=== PATIENT | male | born 1930 | race Caucasian/White ===

== ENCOUNTER → 2016-08-02 | Outpatient (CLI) | payer OTHER ==
[~2016-08-02] MED LIST: ALLO100T PO; ASPI81TA21 PO; CHOLCAP5 PO; CYAN500T13 PO; DOCU100T7 PO; GLIP5TAB11 PO; HYDR-4079 PO; KLN5X PO; METO25TA56 PO; MIRT15TA2 PO; PANT40TA PO; PSYL55.43 PO; SIMV10TA2 PO; TAMS0.4C38 PO
[2016-08-02 15:34] LABS: HEMATOCRIT 46.2 % (42-52); MEAN CELL VOLUME 92.8 fL (80-100); MEAN CORPUSCULAR HEMOGLOBIN 30.9 pg (25-34); MEAN CORPUSCULAR HGB CONC 33.3 g/dl (32-36); MEAN PLATELET VOLUME 8.9 fL (7.4-10.4); PLATELET COUNT 245 K/uL (130-400); RED BLOOD COUNT 4.98 M/uL (4.7-6.1); WHITE BLOOD COUNT 9.55 K/uL (4.8-10.8)
[2016-08-02 15:38] LABS: URINE APPEARANCE CLEAR (CLEAR); URINE BILIRUBIN NEG (NEG); URINE COLOR YELLOW; URINE EPITHELIAL CELL AUTO 0-5 /lpf (0-5); URINE NITRITE NEG (NEG); URINE SPECIFIC GRAVITY 1.023 (1.000-1.030); UROBILINOGEN NEG (NEG)
[2016-08-02 15:47] LABS: MANUAL MICROSCOPIC REQUIRED? NO; REVIEW REQ? NO
[2016-08-02 16:10] LABS: URINE PROTIEN/CREAT RATIO 0.2 (0-0.2); URINE TOTAL PROTEIN 28.3 mg/dl (0-11.9)
[2016-08-02 16:11] LABS: BLOOD UREA NITROGEN 19 mg/dl (7-18); BUN/CREATININE RATIO 10.1 (10-20); CALCIUM 9.3 mg/dl (8.5-10.1); CARBON DIOXIDE 30 mmol/L (21-32); CHLORIDE 100 mmol/L (98-107); GLUCOSE 268 mg/dl (70-99); PHOSPHORUS 2.5 mg/dl (2.5-4.9); POTASSIUM 3.6 mmol/L (3.5-5.1); SODIUM 139 mmol/L (136-145)
== END | disposition home or self-care (01) ==
LOC: C.LAB 14:28
PROVIDERS: ATTEND Internal Medicine Nephrology
DX: I12.9 Hypertensive chronic kidney disease with stage 1 through stage 4 chronic kidney disease, or unspecified chronic kidney disease (principal); N18.3 Chronic kidney disease, stage 3 (moderate); E55.9 Vitamin D deficiency, unspecified; N20.0 Calculus of kidney; D64.9 Anemia, unspecified

== ENCOUNTER 2017-01-24 16:09 | Emergency (ER) | payer OTHER ==
[~2017-01-24] VITALS: Ht 185.4 cm; Wt 87.0 kg
[~2017-01-24 16:09] MED LIST changes: -CHOLCAP5 PO; -CYAN500T13 PO; -METO25TA56 PO; -PANT40TA PO
[2017-01-24 16:16] VITALS: TEMP 36.6; Ht 185.4 cm; Wt 87.0 kg
[2017-01-24] MEDS ORDERED: PSYL48.59 PO (16:40)
[2017-01-24] MEDS ORDERED: VITATAB19 PO (16:42)
[2017-01-24] MEDS ORDERED: XYLOCAINE 1%/SOD BICARB 20 ML VIAL INFIL ONE (16:45)
--- NOTE | 2017-01-24 17:25 | EMERGENCY ROOM VISIT NOTE ---
ED Visit Note First contact with patient: 16:31 Staff note: I have reviewed the Patients chart and have discussed this case with my PA. I generally agree with the ED note and findings.
[2017-01-24] MEDS ORDERED: CEPH500C2 PO (18:07)
[2017-01-24] MEDS ORDERED: CEPHALEXIN 500MG HOME PACK 1 EA BTL PO ONE (18:15)
[2017-01-24 18:20] VITALS: BP 164/105; PULSE 83; O2SAT 98
[2017-01-24] MEDS ORDERED: PANT40TA PO (19:59)
[2017-01-24] MEDS ORDERED: CHOLCAP5 PO (21:14)
[2017-01-24] MEDS ORDERED: CYAN500T13 PO (21:14)
[2017-01-24] MEDS ORDERED: METO25TA56 PO (21:14)
--- NOTE | 2017-01-24 21:40 | EMERGENCY ROOM VISIT NOTE ---
ED Visit Note First contact with patient: 16:31 Chief Complaint: Laceration. History of Present Illness: Mr. Wagner is an 86-year-old white male who ambulates into the ED with the use of a cane accompanied by his and granddaughter complaining of a left heel laceration. Patient reports last evening he sustained a laceration to the plantar surface and medial surface of the left heel when he accidentally stepped on a special attachment that goes to his cane. Historically he reports he has a history of neuropathy and cannot feel his feet. He reports he did walk around at home and then finally noticed blood on the floor before he realized he had a laceration. Laceration occurred approximately 15 hours ago. He reports the wound was cleansed with peroxide shortly after the injury. When questioned he reported he did not think the wound was that bad and only came to the hospital after the granddaughter saw the wound and suggested evaluation; he also expressed concerns for infection because he is a diabetic and this was an open wound. Patient has no associated symptoms with his laceration including pain at the area of the laceration, additional numbness or weakness of the foot, difficulty ambulating. Review of Systems: As noted above in history of present illness. Past Medical History: Diabetes, dyslipidemia, coronary artery disease, benign prostatic hypertrophy, hypertension, prostatitis, urinary retention, urinary tract infections. Current Medications: Medications Dose Route/Sig Max Daily Dose Days Date Category Dose Instructions Keflex (Cephalexin Monohydrate) 500 Mg Cap 500 Mg PO TID 6 01/24/17 Rx Vitamin A (Vitamin A-Beta Carotene) 1 Tab Tab 1 Tabs PO DAILY 01/24/17 Reported Metamucil (Psyllium) 48.57 % Pow 5 Ml PO DAILY 01/24/17 Reported Glucotrol (Glipizide) 5 Mg Tab 5 Mg PO BID 05/19/15 Reported Remeron Soltab (Mirtazapine) 15 Mg Soltab 15 Mg PO HS 05/19/15 Reported [place] 10MG/325MG (Acetaminophen/Hydrocodone Bitart) Tab 0.5 Tab PO TID 05/19/15 Reported PRN PAIN Zocor (Simvastatin) 10 Mg Tab 10 Mg PO HS 05/19/15 Reported Flomax (Tamsulosin Hcl) 0.4 Mg Cap 0.4 Mg PO QAM 09/09/14 Reported Clonazepam 0.5 Mg Tab 0.5 Mg PO TID 09/09/14 Reported Vitamin D3 (Cholecalciferol) 5,000 Unit Cap 5,000 Inter.unit PO QPM 08/23/14 Reported Vitamin B12 500MCG (Cyanocobalamin) 500 Mcg Tab 500 Mcg PO QPM 08/23/14 Reported Lopressor (Metoprolol Tartrate) 25 Mg Tab 12.5 Mg PO QAM 08/23/14 Reported Protonix (Pantoprazole Sodium) 40 Mg Tab 40 Mg PO QAM 03/16/12 Reported Ecotrin Or Generic (Aspirin) 81 Mg Tab 81 Mg PO QAM 05/27/11 Reported Allergies to Medications: Succinylcholine, albuterol, ramipril, sertraline, finasteride, labetalol, shellfish. Social History: Patient is currently retired; he feels safe in his home environment; he denies tobacco use. Tetanus Immunization Status: Patient reports up-to-date. Physical Examination: Vital Signs: Date Time Temp Pulse Resp B/P (MAP) Pulse Ox O2 Delivery O2 Flow Rate FiO2 01/24/17 18:20 83 18 164/105 98 Room Air 01/24/17 16:16 36.6 104 17 160/86 95 Room Air GENERAL: 86-year-old male in no acute distress, nontoxic-appearing, afebrile and hemodynamically stable. NEUROLOGICAL: Awake, alert and oriented to person, place and time. Answering questions appropriately and following commands. SKIN: Warm, dry and pink. Left Heel: Laceration #1:5.5 cm full-thickness laceration starting just inferior to the calcaneus and extending into the plantar surface. Laceration #2:2.0 cm full-thickness laceration over the plantar surface of the heel. Left Foot: No gross bony deformity. No tenderness through the ankle, foot and heel. Soft tissue injury as noted above. Distal pulses are intact. Capillary refill is brisk. He was able to plantarflex and dorsiflex his ankle against resistance and flex and extend all toes at the MTP, PIP and DIP joints. ED Course: Patient is assessed as noted above. Wound Repair: Complexity: Basic Verbal consent was obtained after the risks and benefits were explained. The skin was prepped with betadine and a sterile field set. Wound edges of the wounds were anesthetized with a total of 5.8 ml buffered 1% lidocaine. The wound was explored for foreign bodies and none found. Copious irrigation was performed using sterile saline. With direct pressure the bleeding subsided. Debridement was not performed. The wound edges were approximated using 5-0 Ethilon with a total of 16 simple interrupted sutures. Hemostasis and excellent approximation was achieved. Antibacterial ointment and a sterile dressing applied. No complications and the patient tolerated the procedure well. Patient and family were educated about tonight's findings and instructed on his treatment plan; they verbalizes understanding and agreement with this plan. Clinical Impression: Laceration of the left heel. Disposition: Patient discharged home in stable condition; prior to departure he was reassessed and subjectively reported he was feeling better. Plan: Comfort measures, wound care, and signs of infection were discussed with the patient and his family. Patient was prescribed Keflex 500 mg 3 times a day for 7 days. Because of patient's increased risk of infection he was encouraged to follow-up with family physician for recheck in 3-4 days. Additionally he was encouraged to follow-up with PCP or return to the ED for any signs of infection and/or suture removal in 10-12 days.
== END 2017-01-24 18:39 | disposition home or self-care (01) ==
LOC: C.EDB 16:12 → C.EDD 18:39
DX: S91.312A Laceration without foreign body, left foot, initial encounter (principal); W45.8XXA Other foreign body or object entering through skin, initial encounter; E11.9 Type 2 diabetes mellitus without complications; E78.5 Hyperlipidemia, unspecified; I25.10 Atherosclerotic heart disease of native coronary artery without angina pectoris; N40.0 Benign prostatic hyperplasia without lower urinary tract symptoms; I10 Essential (primary) hypertension

== ENCOUNTER 2017-03-05 07:58 | Emergency (ER) | payer OTHER ==
[~2017-03-05] VITALS: Ht 185.4 cm; Wt 87.6 kg
[~2017-03-05 07:58] MED LIST changes: -ALLO100T PO; +CHOLCAP5 PO; +CYAN500T13 PO; -DOCU100T7 PO; +METO25TA56 PO; +PANT40TA PO; +PSYL48.59 PO; -PSYL55.43 PO; +VITATAB19 PO
[2017-03-05 08:08] VITALS: Ht 185.4 cm; Wt 87.6 kg
[2017-03-05] MEDS ORDERED: ALLO100T PO (08:19)
--- NOTE | 2017-03-05 08:36 | EMERGENCY ROOM VISIT NOTE ---
History Report prepared by Radha: David Ya Under the Supervision of: Dr. Cayetano Grewal D.O. First contact with patient: 08:15 Chief Complaint: SHORTNESS OF BREATH Stated Complaint: SHORTNESS OF BREATH Nursing Triage Summary: pt presents to ed via bls from home with c/o sob and weakness. pt states just finishing z-pack and prednisone from a bronchitis dx. pt states continuing to cough. clear productive cough. pt states sob with exertion. pt denies any cp. History of Present Illness The patient is an 86 year old male who presents to the Emergency Room with complaints of worsening shortness of breath that he has been experiencing for the past 8 days. The patient states that he was diagnosed with Bronchitis 8 days ago and was put on Azithromycin and Prednisone. He finished the Azithromycin 4 days ago. At the time of this diagnosis he was experiencing shortness of breath, achiness, and productive cough. He is not coughing up the green phlegm any more, but his shortness of breath has persisted. He had a chest x-ray performed which was negative for pneumonia. He notes that his shortness of breath has improved since receiving a breathing treatment en route to the hospital. He had a myocardial infarction in 2001. Source of History: patient Onset: 8 days [employer] Position: other (Respiratory) Quality: other (SOB) Timing: worsening Modifying Factors (Relieving): other (Breathing treatment) Review of Systems See HPI for pertinent positives & negatives. A total of 10 systems reviewed and were otherwise negative. Past Medical & Surgical Medical Problems: (1) Coronary Atherosclerosis Of [place] Coronary Vessel (2) Diab W Oth Spec Manifest, Type Ii Or Unspec Type, Not Uncntr (3) Hyperlipidemia Nec/Nos (4) Hyperplasia Of Prostate (5) Hypertension Nos (6) Prostatitis Nos (7) Retention Of Urine Nos (8) Stricture Of Ureter (9) Urin Tract Infection Nos Family History FH: HTN (hypertension) FH: cancer FH: diabetes mellitus FH: heart disease FH: kidney disease Kidney stones Social History Smoking Status: Former Smoker Alcohol Use: none Marital Status: Housing Status: lives with significant other Occupation Status: retired Current/Historical Medications Scheduled Allopurinol (Zyloprim), 1 TAB PO DAILY Aspirin Enteric Coated (Ecotrin Or Generic), 81 MG PO QAM Cholecalciferol (Vitamin D3), 5,000 INTER.UNIT PO QPM Clonazepam (Clonazepam), 0.5 MG PO TID Cyanocobalamin (Vitamin B12 500MCG), 500 MCG PO QPM Glipizide (Glucotrol), 5 MG PO BID Hydrocodone/Acetaminophen 10MG/325MG ([place] 10MG/325MG), 0.5 TAB PO TID Levofloxacin (Levaquin), 500 MG PO DAILY Metoprolol Tartrate (Lopressor) (Lopressor), 12.5 MG PO QAM Mirtazapine Soltab (Remeron Soltab), 15 MG PO HS Pantoprazole (Protonix), 40 MG PO QAM Psyllium (Metamucil), 5 ML PO DAILY Simvastatin (Zocor), 10 MG PO HS Tamsulosin Hcl (Flomax), 0.4 MG PO QAM Tiotropium [place] (Spiriva Handihaler), 1 CAP INH DAILY Valacyclovir Hcl (Valtrex), 1 TAB PO DAILY Vitamin A-Beta Carotene (Vitamin A), 1 TABS PO DAILY Allergies Coded Allergies: Shellfish (Verified Allergy, Intermediate, HIVES TO SHRIMP, HAS HAD CONTRAST MEDIA WITHOUT PROB, 03/05/17) PER PT INTERVIEW IN [facility] ON 09/20/08: HX KIDNEY STONES AND RECEIVED CONTRAST MEDIA WITHOUT PROBLEM DESPITE HIVES FROM SHRIMP. Shrimp (Verified Allergy, Intermediate, HIVES, 03/05/17) Succinylcholine (Verified Allergy, Intermediate, PSEUDOCHOLINESTERASE DEFICIENCY, 03/05/17) TESTED POSTIVE FOR GENE AFTER WAKING PARALYZED s/p GA Albuterol (Verified Allergy, Unknown, tachycardia, 03/05/17) Finasteride (Verified Allergy, Unknown, SWELLING OF BREAST AND TESTICLES, 03/05/17) per patient Sertraline (Verified Allergy, Unknown, n/v, 03/05/17) Levalbuterol Hydrochloride (Verified Adverse Reaction, Intermediate, RAPID HEARTBEAT, 03/05/17) Ramipril (Verified Adverse Reaction, Mild, COUGH, 03/05/17) Physical Exam Vital Signs Date Time Temp Pulse Resp B/P (MAP) Pulse Ox O2 Delivery O2 Flow Rate FiO2 03/05/17 12:44 107 18 112/96 92 Room Air 03/05/17 11:04 36.5 95 18 130/79 94 Room Air 03/05/17 11:04 94 03/05/17 09:46 88 20 123/76 94 Room Air 03/05/17 08:43 Room Air 03/05/17 08:14 109 03/05/17 08:08 36.3 100 18 114/81 96 Room Air Physical Exam GENERAL: Patient is awake, alert, and in no acute distress. Patient is resting comfortably and showing no signs of anxiety EYES: The conjunctivae are clear. The pupils are round and reactive. EARS, NOSE, MOUTH AND THROAT: The nose is without any evidence of any deformity. Mucous membranes are moist tongue is midline NECK: The neck is nontender and supple. RESPIRATORY: Breath sounds are diminished throughout, with rales in both lower lucero. No conversational dyspnea or tachypnea noted. CARDIOVASCULAR: Regular rate and rhythm noted there no murmurs rubs or gallops normal S1 normal S2 GASTROINTESTINAL: The abdomen is soft. Bowel sounds are present in all quadrants. Abdomen is nontender PELVIS: The Pelvis is stable. No tenderness to palpation is noted. BACK: No midline tenderness or or step-off noted range of motion in flexion extension as well as rotation no signs of muscle spasm noted MUSCULOSKELETAL/EXTREMITIES: There is no evidence of gross deformity full range of motion is noted in the hips and shoulders SKIN: There is no edema noted. There is a slight erythematous rash noted over the left cheek. It is not vesicular at this time but has the appearance of early shingles. NEUROLOGIC: Patient is awake alert and oriented x3 strength is symmetric patellar reflexes are 2+ bilaterally Medical Decision & Procedures ER Provider Diagnostic Interpretation: Radiology results as stated below per my review and radiologist interpretation: CHEST ONE VIEW PORTABLE CLINICAL HISTORY: EVALUATE RESPIRATORY DISTRESS.DYSPNEA COMPARISON STUDY: 05/19/2015 FINDINGS: The bones soft tissues and hemidiaphragms are normal. The cardiomediastinal silhouette is normal. The lungs are clear. The pulmonary vasculature is normal. IMPRESSION: Negative chest. The above report was generated using voice recognition software. It may contain grammatical, syntax or spelling errors. Electronically signed by: Kirby Amador M.D. 03/05/2017 8:53 AM Dictated Date/Time: 03/05/2017 8:52 AM Laboratory Results 03/05/17 08:35 Red Blood Count 4.95, Mean Corpuscular Volume 90.9, Mean Corpuscular Hemoglobin 31.3, Mean Corpuscular Hemoglobin Concent 34.4, Mean Platelet Volume 8.8, Neutrophils (%) (Auto) 79.4, Lymphocytes (%) (Auto) 8.7, Monocytes (%) (Auto) 10.2, Eosinophils (%) (Auto) 1.1, Basophils (%) (Auto) 0.1, Neutrophils # (Auto ) 10.28, Lymphocytes # (Auto) 1.12, Monocytes # (Auto) 1.32, Eosinophils # (Auto ) 0.14, Basophils # (Auto) 0.01 03/05/17 08:35 Test 03/05/17 08:35 White Blood Count 12.93 K/uL (4.8-10.8) Red Blood Count 4.95 M/uL (4.7-6.1) Hemoglobin 15.5 g/dL (14.0-18.0) Hematocrit 45.0 % (42-52) Mean Corpuscular Volume 90.9 fL (80-100) Mean Corpuscular Hemoglobin 31.3 pg (25-34) Mean Corpuscular Hemoglobin Concent 34.4 g/dl (32-36) Platelet Count 197 K/uL (130-400) Mean Platelet Volume 8.8 fL (7.4-10.4) Neutrophils (%) (Auto) 79.4 % Lymphocytes (%) (Auto) 8.7 % Monocytes (%) (Auto) 10.2 % Eosinophils (%) (Auto) 1.1 % Basophils (%) (Auto) 0.1 % Neutrophils # (Auto) 10.28 K/uL (1.4-6.5) Lymphocytes # (Auto) 1.12 K/uL (1.2-3.4) Monocytes # (Auto) 1.32 K/uL (0.11-0.59) Eosinophils # (Auto) 0.14 K/uL (0-0.5) Basophils # (Auto) 0.01 K/uL (0-0.2) RDW Standard Deviation 44.4 fL (36.4-46.3) RDW Coefficient of Variation 13.5 % (11.5-14.5) Immature Granulocyte % (Auto) 0.5 % Immature Granulocyte # (Auto) 0.06 K/uL (0.00-0.02) Prothrombin Time 10.2 SECONDS (9.0-12.0) Prothromb Time International Ratio 1.0 (0.9-1.1) Activated Partial Thromboplast Time 23.3 SECONDS (21.0-31.0) Partial Thromboplastin Ratio 0.9 Anion Gap 9.0 mmol/L (3-11) Est Creatinine Clear Calc Drug Dose 34.5 ml/min Estimated GFR () 41.7 Estimated GFR (Non- 36.0 BUN/Creatinine Ratio 17.8 (10-20) Calcium Level 9.4 mg/dl (8.5-10.1) Total Bilirubin 0.7 mg/dl (0.2-1) Aspartate Amino Transf (AST/SGOT) 19 U/L (15-37) Alanine Aminotransferase (ALT/SGPT) 33 U/L (12-78) Alkaline Phosphatase 86 U/L (45-117) Troponin I 0.016 ng/ml (0-0.045) Pro-B-Type Natriuretic Peptide 541 pg/ml (0-1800) Total Protein 6.6 gm/dl (6.4-8.2) Albumin 3.1 gm/dl (3.4-5.0) Globulin 3.5 gm/dl (2.5-4.0) Albumin/Globulin Ratio 0.9 (0.9-2) Beta-Hydroxybutyric Acid 1.66 mg/dL (0.2-2.81) Influenza Type A Antigen Neg for Influ A (NEG) Influenza Type B Antigen Neg for Influ B (NEG) Laboratory results per my review. Medications Administered Medications (Trade) Dose Ordered Sig/Leonides Route Start Time Stop Time Status Last Admin Dose Admin Valacyclovir HCl (Valtrex Tab) 1,000 mg NOW ONCE PO 03/05/17 11:15 03/05/17 11:16 DC 03/05/17 11:16 1,000 MG Levofloxacin (Levaquin Tab) 500 mg ONE STAT PO 03/05/17 11:10 03/05/17 11:11 DC 03/05/17 11:26 500 MG ECG Indication: SOB/dyspnea Rate (beats per minute): 88 Rhythm: normal sinus Findings: no acute ischemic change, no ectopy Comparison ECG Date: 05/19/2015 Change: no significant change Change: Patient's electrocardiogram interpreted by me. ED Course 0817: The patient was evaluated in room A10. A complete history and physical examination were performed. 1104: I reevaluated the patient at this time. He is doing well. There is a rash developing on his face that was brought to my attention. 1110: Ordered Levaquin 500 mg PO. 1115: Ordered Valtrex 1000 mg PO. 1146: Upon reevaluation, the patient is updated and in agreement. I discussed the results and treatment plan with him. He verbalized agreement of the treatment plan. The patient was discharged home. Medical Decision Differential diagnosis: Etiologies such as infections, reactive airway disease, pneumonia, pneumothorax , COPD, CHF, cardiac ischemia, pulmonary embolism, musculoskeletal, gastrointestinal, as well as others were entertained. Nursing notes reviewed. Additional history is obtained from the patient's significant other. The patient is an 86-year-old male who presented to the emergency department for an evaluation of cough. The patient had upper rest for symptoms of cough which was productive for sputum. The patient did not have significant hypoxia. His chest x-ray did not show definite infiltrate. The patient was started on antibiotic in the emergency department. The patient also had a rash on the left cheek which had the appearance of shingles. The patient was encouraged to rest and avoid any strenuous activity. He was also encouraged to call his primary care physician to schedule a follow-up appointment. Otherwise he was encouraged to return to the emergency department immediately if symptoms change worsen or the need arises. He was started on a different antibiotic as well as an inhaler. Blood Pressure Screening Patient's blood pressure: Elevated blood pressure Impression Primary Impression: Acute bronchitis Additional Impression: Shingles Scribe Attestation The scribe's documentation has been prepared under my direction and personally reviewed by me in its entirety. I confirm that the note above accurately reflects all work, treatment, procedures, and medical decision making performed by me. Departure Information Dispostion Home / Self-Care Prescriptions Valacyclovir Hcl (VALTREX) 1 Gm Tab 1 TAB PO DAILY, #10 TAB 3 Refills Prov: Cayetano Grewal, DO 03/05/17 Levofloxacin (Levaquin) 500 Mg Tab 500 MG PO DAILY, #5 TABS Prov: Cayetano Grewal, DO 03/05/17 Tiotropium [place] (Spiriva Handihaler) 30 Puff/540 Mcg Aerp 1 CAP INH DAILY for 30 Days, #1 INHALER 3 Refills Prov: Cayetano Grewal, DO 03/05/17 Referrals Simon Up M.D. (PCP) Forms HOME CARE DOCUMENTATION FORM, IMPORTANT VISIT INFORMATION Patient Instructions My [facility] Additional Instructions Call your family to schedule a follow-up appointment. Rest and avoid any strenuous activity. Continue all medications as prescribed. Problem Qualifiers Primary Impression: Acute bronchitis Bronchitis organism: unspecified organism Qualified Codes: J20.9 - Acute bronchitis, unspecified Additional Impression: Shingles Herpes zoster complications: without complications Qualified Codes: B02.9 - Zoster without complications
[2017-03-05 08:51] LABS: BASO % 0.1 %; BASO ABS # 0.01 K/uL (0-0.2); EOS % 1.1 %; EOS ABS # 0.14 K/uL (0-0.5); HEMOGLOBIN 15.5 g/dL (14.0-18.0); IG# 0.06 K/uL (0.00-0.02); LYMPH % 8.7 %; LYMPH ABS # 1.12 K/uL (1.2-3.4); MEAN CELL VOLUME 90.9 fL (80-100); MEAN CORPUSCULAR HEMOGLOBIN 31.3 pg (25-34); MEAN CORPUSCULAR HGB CONC 34.4 g/dl (32-36); MEAN PLATELET VOLUME 8.8 fL (7.4-10.4); MONO % 10.2 %; MONO ABS # 1.32 K/uL (0.11-0.59); NEUT % 79.4 %; NEUT ABS # 10.28 K/uL (1.4-6.5); PLATELET COUNT 197 K/uL (130-400); RED CELL DISTRIBUTION WIDTH CV 13.5 % (11.5-14.5); RED CELL DISTRIBUTION WIDTH SD 44.4 fL (36.4-46.3); WHITE BLOOD COUNT 12.93 K/uL (4.8-10.8)
--- NOTE | 2017-03-05 08:54 | DIAGNOSTIC IMAGING REPORT ---
CHEST ONE VIEW PORTABLE CLINICAL HISTORY: EVALUATE RESPIRATORY DISTRESS.DYSPNEA COMPARISON STUDY: 05/19/2015 FINDINGS: The bones soft tissues and hemidiaphragms are normal. The cardiomediastinal silhouette is normal. The lungs are clear. The pulmonary vasculature is normal. IMPRESSION: Negative chest. The above report was generated using voice recognition software. It may contain grammatical, syntax or spelling errors. Electronically signed by: Kirby Amador M.D. 03/05/2017 8:53 AM Dictated Date/Time: 03/05/2017 8:52 AM
[2017-03-05 08:59] LABS: PTT PATIENT 23.3 SECONDS (21.0-31.0)
[2017-03-05 09:11] LABS: ALBUMIN 3.1 gm/dl (3.4-5.0); CALCIUM 9.4 mg/dl (8.5-10.1); CREATININE 1.67 mg/dl (0.60-1.40)
[2017-03-05 09:23] LABS: TOTAL PROTEIN 6.6 gm/dl (6.4-8.2)
[2017-03-05 10:49] LABS: INFLUENZA B ANTIGEN Neg for Influ B (NEG)
[2017-03-05 11:04] VITALS: TEMP 36.5
[2017-03-05] MEDS ORDERED: LEVOFLOXACIN 500 MG TAB PO STA (11:10)
[2017-03-05] MEDS ORDERED: VALA1TAB31 PO (12:17)
[2017-03-05] MEDS ORDERED: LEVO-366 PO (12:17)
[2017-03-05] MEDS ORDERED: SPRIN/30 INH (12:17)
[2017-03-05 12:44] VITALS: BP 112/96; PULSE 107; O2SAT 92
== END 2017-03-05 13:07 | disposition home or self-care (01) ==
LOC: EDBD 07:58 → C.EDA 08:01
DX: J20.9 Acute bronchitis, unspecified (principal); B02.9 Zoster without complications; E11.9 Type 2 diabetes mellitus without complications; E78.5 Hyperlipidemia, unspecified; I10 Essential (primary) hypertension; I25.2 Old myocardial infarction; Z79.84 Long term (current) use of oral hypoglycemic drugs; Z82.49 Family history of ischemic heart disease and other diseases of the circulatory system; Z83.3 Family history of diabetes mellitus; Z84.1 Family history of disorders of kidney and ureter; Z87.891 Personal history of nicotine dependence

== ENCOUNTER 2017-03-08 11:51 | Inpatient (IN) | payer OTHER ==
[~2017-03-08] VITALS: Ht 185.4 cm; Wt 83.2 kg
[~2017-03-08 11:51] MED LIST changes: +ALLO100T PO; +LEVO-366 PO; +SPRIN/30 INH; +VALA1TAB31 PO
[2017-03-08] MEDS ORDERED: SODIUM CHLORIDE 0.9% 1000ML 1,000 ML IV STA (12:33)
[2017-03-08 12:45] LABS: BASO % 0.1 %; BASO ABS # 0.01 K/uL (0-0.2); EOS % 0.3 %; EOS ABS # 0.04 K/uL (0-0.5); HEMOGLOBIN 15.9 g/dL (14.0-18.0); IG# 0.06 K/uL (0.00-0.02); LYMPH % 9.1 %; LYMPH ABS # 1.14 K/uL (1.2-3.4); MEAN CELL VOLUME 92.2 fL (80-100); MEAN CORPUSCULAR HEMOGLOBIN 31.9 pg (25-34); MEAN CORPUSCULAR HGB CONC 34.6 g/dl (32-36); MEAN PLATELET VOLUME 9.7 fL (7.4-10.4); MONO % 11.8 %; MONO ABS # 1.47 K/uL (0.11-0.59); NEUT % 78.2 %; NEUT ABS # 9.75 K/uL (1.4-6.5); PLATELET COUNT 188 K/uL (130-400); RED CELL DISTRIBUTION WIDTH CV 13.5 % (11.5-14.5); RED CELL DISTRIBUTION WIDTH SD 45.6 fL (36.4-46.3); WHITE BLOOD COUNT 12.47 K/uL (4.8-10.8)
[2017-03-08 12:58] LABS: CALCIUM 9.3 mg/dl (8.5-10.1); CREATININE 2.07 mg/dl (0.60-1.40); POTASSIUM 4.3 mmol/L (3.5-5.1)
[2017-03-08 13:08] LABS: CKMB 1.2 ng/ml (0.5-3.6)
--- NOTE | 2017-03-08 13:25 | DIAGNOSTIC IMAGING REPORT ---
CHEST ONE VIEW PORTABLE CLINICAL HISTORY: Altered mental status. Weakness. COMPARISON STUDY: Chest radiograph March 05, 2017. FINDINGS: Patient is mildly rotated. No pneumothorax or pleural effusion is noted. There is no consolidation. Pulmonary vascularity is normal. Cardiomediastinal silhouette is unremarkable. Mild lower lung interstitial thickening is unchanged and is chronic. IMPRESSION: No acute cardiopulmonary findings. No change in appearance of the chest. Electronically signed by: Bertrand Walker M.D. 03/08/2017 1:24 PM Dictated Date/Time: 03/08/2017 1:23 PM
[2017-03-08] MEDS ORDERED: HYDR-5688 PO (13:35)
[2017-03-08] MEDS ORDERED: DOCU1TAB6 PEG (13:42)
[2017-03-08] MEDS ORDERED: ASPIRIN 81 MG CHEW PO STA (13:47)
--- NOTE | 2017-03-08 14:06 | EMERGENCY ROOM VISIT NOTE ---
History Report prepared by Radha: Tanya Collier Under the Supervision of: Dr. Torres Mixon D.O. First contact with patient: 12:14 Chief Complaint: RESPIRATORY PROBLEMS Stated Complaint: CHEST BURNING COUGH Nursing Triage Summary: pt c/o chest burning and sob. pt was here a few days ago and dx w/ bronchitis. pt states chest was burning and felt sob. states syncopial episode. pt states he is coughing up white colored sputum. History of Present Illness The patient is a 86 year old male who presents to the Emergency Room with complaints of a resolved syncopal episode that occurred this morning. The patient states that he was seen in the Emergency Department a few days ago for similar symptoms, noting he was diagnosed with bronchitis. He notes that he started to feel better, but became short of breath last night before he went to bed. The patient states that he woke up in the middle of the night to urinate and again in the morning when he woke up but that time he became weak and fell to the ground without losing consciousness. He reports that he laid on the floor for about 10 minutes because he was out of breath and felt weak. The patient states he has been lightheaded since and has a burning sensation in his chest. He notes that he laid in bed after his episode, unable to get up due to generalized weakness until the ambulance came. The patient denies being on oxygen at home. Source of History: patient Onset: this morning Position: other (global) Quality: other (syncopal episode) Timing: resolved Associated Symptoms: + SOB, + weakness Note: Associated symptoms include chest burning and dizziness. Review of Systems See HPI for pertinent positives & negatives. A total of 10 systems reviewed and were otherwise negative. Past Medical & Surgical Medical Problems: (1) Coronary Atherosclerosis Of [place] Coronary Vessel (2) Diab W Oth Spec Manifest, Type Ii Or Unspec Type, Not Uncntr (3) Hyperlipidemia Nec/Nos (4) Hyperplasia Of Prostate (5) Hypertension Nos (6) Prostatitis Nos (7) Retention Of Urine Nos (8) Stricture Of Ureter (9) Urin Tract Infection Nos Family History FH: HTN (hypertension) FH: cancer FH: diabetes mellitus FH: heart disease FH: kidney disease Kidney stones Social History Smoking Status: Never Smoker Alcohol Use: none Marital Status: Housing Status: lives with significant other Occupation Status: retired Current/Historical Medications Scheduled Allopurinol (Zyloprim), 1 TAB PO DAILY Aspirin Enteric Coated (Ecotrin Or Generic), 81 MG PO QAM Cholecalciferol (Vitamin D3), 5,000 INTER.UNIT PO QPM Clonazepam (Clonazepam), 0.5 MG PO TID Cyanocobalamin (Vitamin B12 500MCG), 500 MCG PO QPM Docusate Sodium (Docusate Sodium), 1 TAB PEG DAILY Glipizide (Glucotrol), 5 MG PO BID Levofloxacin (Levaquin), 500 MG PO DAILY Metoprolol Tartrate (Lopressor) (Lopressor), 12.5 MG PO QAM Mirtazapine Soltab (Remeron Soltab), 15 MG PO HS Pantoprazole (Protonix), 40 MG PO QAM Psyllium (Metamucil), 5 ML PO HS Simvastatin (Zocor), 10 MG PO HS Tamsulosin Hcl (Flomax), 0.4 MG PO QAM Tiotropium [place] (Spiriva Handihaler), 1 CAP INH DAILY Valacyclovir Hcl (Valtrex), 1 TAB PO DAILY Vitamin A-Beta Carotene (Vitamin A), 1 TABS PO DAILY Scheduled PRN Hydrocodone/Acetaminophen 5MG/325MG ([place] 5MG/325MG), 1 TABLET PO Q8 PRN for Pain Allergies Coded Allergies: Shellfish (Verified Allergy, Intermediate, HIVES TO SHRIMP, HAS HAD CONTRAST MEDIA WITHOUT PROB, 03/08/17) PER PT INTERVIEW IN [facility] ON 09/20/08: HX KIDNEY STONES AND RECEIVED CONTRAST MEDIA WITHOUT PROBLEM DESPITE HIVES FROM SHRIMP. Shrimp (Verified Allergy, Intermediate, HIVES, 03/08/17) Succinylcholine (Verified Allergy, Intermediate, PSEUDOCHOLINESTERASE DEFICIENCY, 03/08/17) TESTED POSTIVE FOR GENE AFTER WAKING PARALYZED s/p GA Albuterol (Verified Allergy, Unknown, tachycardia, 03/08/17) Finasteride (Verified Allergy, Unknown, SWELLING OF BREAST AND TESTICLES, 03/08/17) per patient Sertraline (Verified Allergy, Unknown, n/v, 03/08/17) Levalbuterol Hydrochloride (Verified Adverse Reaction, Intermediate, RAPID HEARTBEAT, 03/08/17) Ramipril (Verified Adverse Reaction, Mild, COUGH, 03/08/17) Physical Exam Vital Signs Date Time Temp Pulse Resp B/P (MAP) Pulse Ox O2 Delivery O2 Flow Rate FiO2 03/08/17 15:09 166 03/08/17 13:54 36.5 105 18 114/83 98 Nasal Cannula 2.0 03/08/17 13:03 106 03/08/17 12:11 91 Room Air 03/08/17 12:11 36.6 108 20 136/86 91 Room Air Physical Exam CONSTITUTIONAL/VITAL SIGNS: Reviewed / noted above. GENERAL: Non-toxic in appearance. INTEGUMENTARY: Warm, dry, and [place]. HEAD: Normocephalic. EYES: without scleral icterus or trauma. ENT/OROPHARYNX: clear and moist. LYMPHADENOPATHY/NECK: Is supple without lymphadenopathy or meningismus. RESPIRATORY: Lungs clear and equal. CARDIOVASCULAR: Regular rate and rhythm. GI/ABDOMEN: Soft and nontender. No organomegaly or pulsatile mass. No rebound or guarding. Normal bowel sounds. EXTREMITIES: Warm and well perfused. BACK: No CVA tenderness. NEUROLOGICAL: Intact without focal deficits. PSYCHIATRIC: normal affect. MUSCULOSKELETAL: Normally developed with good muscle tone. Medical Decision & Procedures ER Provider Diagnostic Interpretation: Radiology results as stated below per my review and radiologist interpretation: CHEST ONE VIEW PORTABLE CLINICAL HISTORY: Altered mental status. Weakness. COMPARISON STUDY: Chest radiograph March 05, 2017. FINDINGS: Patient is mildly rotated. No pneumothorax or pleural effusion is noted. There is no consolidation. Pulmonary vascularity is normal. Cardiomediastinal silhouette is unremarkable. Mild lower lung interstitial thickening is unchanged and is chronic. IMPRESSION: No acute cardiopulmonary findings. No change in appearance of the chest. Electronically signed by: Bertrand Walker M.D. 03/08/2017 1:24 PM Dictated Date/Time: 03/08/2017 1:23 PM Laboratory Results 03/08/17 12:05 Red Blood Count 4.99, Mean Corpuscular Volume 92.2, Mean Corpuscular Hemoglobin 31.9, Mean Corpuscular Hemoglobin Concent 34.6, Mean Platelet Volume 9.7, Neutrophils (%) (Auto) 78.2, Lymphocytes (%) (Auto) 9.1, Monocytes (%) (Auto) 11.8, Eosinophils (%) (Auto) 0.3, Basophils (%) (Auto) 0.1, Neutrophils # (Auto ) 9.75, Lymphocytes # (Auto) 1.14, Monocytes # (Auto) 1.47, Eosinophils # (Auto ) 0.04, Basophils # (Auto) 0.01 03/08/17 12:05 Test 03/08/17 12:05 03/08/17 12:47 White Blood Count 12.47 K/uL (4.8-10.8) Red Blood Count 4.99 M/uL (4.7-6.1) Hemoglobin 15.9 g/dL (14.0-18.0) Hematocrit 46.0 % (42-52) Mean Corpuscular Volume 92.2 fL (80-100) Mean Corpuscular Hemoglobin 31.9 pg (25-34) Mean Corpuscular Hemoglobin Concent 34.6 g/dl (32-36) Platelet Count 188 K/uL (130-400) Mean Platelet Volume 9.7 fL (7.4-10.4) Neutrophils (%) (Auto) 78.2 % Lymphocytes (%) (Auto) 9.1 % Monocytes (%) (Auto) 11.8 % Eosinophils (%) (Auto) 0.3 % Basophils (%) (Auto) 0.1 % Neutrophils # (Auto) 9.75 K/uL (1.4-6.5) Lymphocytes # (Auto) 1.14 K/uL (1.2-3.4) Monocytes # (Auto) 1.47 K/uL (0.11-0.59) Eosinophils # (Auto) 0.04 K/uL (0-0.5) Basophils # (Auto) 0.01 K/uL (0-0.2) RDW Standard Deviation 45.6 fL (36.4-46.3) RDW Coefficient of Variation 13.5 % (11.5-14.5) Immature Granulocyte % (Auto) 0.5 % Immature Granulocyte # (Auto) 0.06 K/uL (0.00-0.02) Anion Gap 6.0 mmol/L (3-11) Est Creatinine Clear Calc Drug Dose 27.9 ml/min Estimated GFR () 32.2 Estimated GFR (Non- 27.8 BUN/Creatinine Ratio 12.2 (10-20) Calcium Level 9.3 mg/dl (8.5-10.1) Magnesium Level 2.1 mg/dl (1.8-2.4) Total Creatine Kinase 36 U/L (39-308) Creatine Kinase MB 1.2 ng/ml (0.5-3.6) Creatine Kinase MB Ratio 3.3 (0-3.0) Troponin I 0.255 ng/ml (0-0.045) Beta-Hydroxybutyric Acid 13.46 mg/dL (0.2-2.81) Urine Color YELLOW Urine Appearance CLEAR (CLEAR) Urine pH 5.0 (4.5-7.5) Urine Specific [place] 1.026 (1.000-1.030) Urine Protein 1+ (NEG) Urine Glucose (UA) 3+ (NEG) Urine Ketones 1+ (NEG) Urine Occult Blood NEG (NEG) Urine Nitrite NEG (NEG) Urine Bilirubin NEG (NEG) Urine Urobilinogen NEG (NEG) Urine Leukocyte Esterase NEG (NEG) Urine WBC (Auto) 1-5 /hpf (0-5) Urine RBC (Auto) 0-4 /hpf (0-4) Urine Hyaline Casts (Auto) 1-5 /lpf (0-5) Urine Epithelial Cells (Auto) 10-20 /lpf (0-5) Urine Bacteria (Auto) NEG (NEG) Urine Crystals AMORPHOUS SEDIMENT (NONE Urine Yeast (Auto) (NONE PRSENT) Laboratory results as stated above per my review. Medications Administered Medications (Trade) Dose Ordered Sig/Leonides Route Start Time Stop Time Status Last Admin Dose Admin Sodium Chloride 1,000 ml @ 999 mls/hr Q1H1M STAT IV 03/08/17 12:33 03/08/17 13:33 DC 03/08/17 12:41 999 MLS/HR Aspirin (Aspirin Chew) 324 mg NOW STAT PO 03/08/17 13:47 03/08/17 13:52 DC 03/08/17 13:57 324 MG ECG Rate (beats per minute): 121 Rhythm: sinus tachycardia Findings: PAC, no acute ischemic change Change: Electrocardiogram as interested by me ED Course 1231: Previous medical records were reviewed. The patient was evaluated in room A2. A complete history and physical examination was performed. 1233: Ordered Sodium Chloride 1000ml @ 999 mls/hr IV. 1347: Ordered Aspirin 324mg PO. 1437: Discussed the patient's case with Rock Jessica. The patient will be evaluated for further treatment and disposition. Medical Decision Differential diagnosis: Etiologies such as metabolic, infection, hypo/hyperglycemia, electrolyte abnormalities, cardiac sources, intracerebral event, toxicologic, neurologic, as well as others were entertained. This is an 86-year-old male who presents to the ED with a chief complaint of shortness of breath and chest pain. The patient states that he was here with similar symptoms 2 days ago. He was diagnosed with bronchitis. This morning he states that he became very weak when he was walking from the bathroom and fell. He did not injure himself. He was able to crawl to the bed and then call EMS. The patient reports his chest pain as a burning sensation in the chest. His vital signs are normal. Oxygen saturation is were 91% on room air. His exam was relatively unremarkable. He does not appear to be in any distress. An EKG shows a sinus rhythm without acute ischemic changes. Chest x- ray was negative for acute disease. CBC reveals a slight elevation of the white blood cell count. PRP was unremarkable. Creatinine is 2.0. This is near baseline for the patient. Glucose was elevated at 324 and troponin was 0.2 -5. Troponin done 3 days ago was within normal limits. Urine did not show obvious infection. The patient was treated with a small IV fluids. He was given aspirin by mouth. He'll be seen by the hospitalist service for further inpatient evaluation and care. The patient did have 1 brief run of SVT during his ED stay. This broke spontaneously. He was given IV Lopressor 5 mg IV. He states that he has not taken his medication yet today. Medication Reconcilliation Current Medication List: was personally reviewed by me Blood Pressure Screening Patient's blood pressure: Normal blood pressure Consults Time Called: 1437 Consulting Physician: Rock Jessica Returned Call: [phone] Discussed the patient's case. The patient will be evaluated for further treatment and disposition. Impression Primary Impression: Elevated troponin Additional Impressions: Near syncope Weakness Scribe Attestation The scribe's documentation has been prepared under my direction and personally reviewed by me in its entirety. I confirm that the note above accurately reflects all work, treatment, procedures, and medical decision making performed by me. Departure Information Dispostion Being Evaluated By Hospitalist Referrals Simon Up M.D. (PCP) Forms HOME CARE DOCUMENTATION FORM, IMPORTANT VISIT INFORMATION, WORK / SCHOOL INSTRUCTIONS Patient Instructions My [facility] Problem Qualifiers
[2017-03-08] MEDS ORDERED: METOPROLOL TARTRATE 1 MG/ML VIAL IV STA (15:13)
[2017-03-08] MEDS ORDERED: HEPARIN 25000 UNIT/500 ML D5W ONE (15:24)
--- NOTE | 2017-03-08 15:30 | History and Physical ---
History & Physical Date & Time of Service: Mar 08, 2017 at 15:29 Chief Complaint: Chest Burning Cough Primary Care Physician: Simon Up M.D. 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 Shortness of breath symptoms appeared to correlate with symptoms of feeling chest discomfort like a burning sensation that is exacerbated by cough and is not associated with food or activity. Patient reports that these bronchitis symptoms became worse after finishing prednisone and Z pack. Previous to today, patient has bee have presyncopal episodes and then fell down without apparent loss of consciousness. Patient had been feeling warm and sweating in his sleep, did not take a temperature because he did not have a working thermometer, and made several trips to the bathroom, during one of the trips he was returning from bathroom felt lightheaded and fell down. Patient denies head trauma as he landed on his right arm. In the ED, patient was found to be tachycardic and the EKG performed showed sinus tachycardia with PAC at 121 bpm. Also found to have troponin of 0.255. Patient was given by ED provider aspirin 324 mg. When seen by hospitalist in the ED for admission, patient heart rate around 104 beats per minute with blood pressure 114/83 and saturating 97% on nasal cannula. Patient denied chest pain. Subsequently after hospitalist left the exam room, patient had recorded run of sinus tach to 170 bpm. Patient did not have any worsening symptoms. Lopressor 5 mg IV was given and heart rate slowing down 98 beats per minute. Past Medical/Surgical History Medical Problems: (1) Coronary Atherosclerosis Of [place] Coronary Vessel Status: Chronic (2) Diab W Oth Spec Manifest, Type Ii Or Unspec Type, Not Uncntr Status: Chronic (3) Hyperlipidemia Nec/Nos Status: Chronic (4) Hyperplasia Of Prostate Status: Chronic (5) Hypertension Nos Status: Chronic (6) Prostatitis Nos Status: Resolved (7) Retention Of Urine Nos Status: Resolved (8) Stricture Of Ureter Status: Resolved (9) Urin Tract Infection Nos Status: Resolved Family History FH: HTN (hypertension) FH: cancer FH: diabetes mellitus FH: heart disease FH: kidney disease Kidney stones Social History Smoking Status: Never Smoker Marital Status: Housing status: lives with significant other Occupational Status: retired Immunizations History of Influenza Vaccine: Yes Influenza Vaccine Date: Dec 26, 2010 History of Tetanus Vaccine?: Yes Tetanus Immunization Date: Feb 19, 2011 History of Pneumococcal: Yes Pneumococcal Date: Nov 12, 2002 History of Hepatitis B Vaccine: No Multi-Drug Resistant Organisms History of MDRO: No Allergies Coded Allergies: Shellfish (Verified Allergy, Intermediate, HIVES TO SHRIMP, HAS HAD CONTRAST MEDIA WITHOUT PROB, 03/08/17) PER PT INTERVIEW IN [facility] ON 09/20/08: HX KIDNEY STONES AND RECEIVED CONTRAST MEDIA WITHOUT PROBLEM DESPITE HIVES FROM SHRIMP. Shrimp (Verified Allergy, Intermediate, HIVES, 03/08/17) Succinylcholine (Verified Allergy, Intermediate, PSEUDOCHOLINESTERASE DEFICIENCY, 03/08/17) TESTED POSTIVE FOR GENE AFTER WAKING PARALYZED s/p GA Albuterol (Verified Allergy, Unknown, tachycardia, 03/08/17) Finasteride (Verified Allergy, Unknown, SWELLING OF BREAST AND TESTICLES, 03/08/17) per patient Sertraline (Verified Allergy, Unknown, n/v, 03/08/17) Levalbuterol Hydrochloride (Verified Adverse Reaction, Intermediate, RAPID HEARTBEAT, 03/08/17) Ramipril (Verified Adverse Reaction, Mild, COUGH, 03/08/17) Home Medications Scheduled Allopurinol (Zyloprim), 1 TAB PO DAILY Aspirin Enteric Coated (Ecotrin Or Generic), 81 MG PO QAM Cholecalciferol (Vitamin D3), 5,000 INTER.UNIT PO QPM Clonazepam (Clonazepam), 0.5 MG PO TID Cyanocobalamin (Vitamin B12 500MCG), 500 MCG PO QPM Docusate Sodium (Docusate Sodium), 1 TAB PEG DAILY Glipizide (Glucotrol), 5 MG PO BID Levofloxacin (Levaquin), 500 MG PO DAILY Metoprolol Tartrate (Lopressor) (Lopressor), 12.5 MG PO QAM Mirtazapine Soltab (Remeron Soltab), 15 MG PO HS Pantoprazole (Protonix), 40 MG PO QAM Psyllium (Metamucil), 5 ML PO HS Simvastatin (Zocor), 10 MG PO HS Tamsulosin Hcl (Flomax), 0.4 MG PO QAM Tiotropium [place] (Spiriva Handihaler), 1 CAP INH DAILY Valacyclovir Hcl (Valtrex), 1 TAB PO DAILY Vitamin A-Beta Carotene (Vitamin A), 1 TABS PO DAILY Scheduled PRN Hydrocodone/Acetaminophen 5MG/325MG ([place] 5MG/325MG), 1 TABLET PO Q8 PRN for Pain Review of Systems Constitutional: + problem reported (sweating, warmth) Eyes: No worsening of vision ENT: No unusual epistaxis, No trouble swallowing Respiratory: + cough, + sputum, + shortness of breath Cardiovascular: No chest pain, No edema, No palpitations Abdomen: No pain, No nausea, No vomiting Musculoskeletal: No joint pain Neurologic: No paralysis, No numbness/tingling Psychiatric: No substance abuse Endocrine: No fatigue Hematologic / Lymphatic: No abnormal bleeding/bruising Integumentary: No rash, No itch Physical Exam Vital Signs Date Time Temp Pulse Resp B/P (MAP) Pulse Ox O2 Delivery O2 Flow Rate FiO2 03/08/17 15:09 166 03/08/17 13:54 36.5 105 18 114/83 98 Nasal Cannula 2.0 03/08/17 13:03 106 03/08/17 12:11 91 Room Air 03/08/17 12:11 36.6 108 20 136/86 91 Room Air General Appearance: no apparent distress Head: normocephalic, atraumatic Eyes: normal inspection, EOMI, sclerae normal ENT: normal ENT inspection, hearing grossly normal, pharynx normal Neck: supple, no JVD, trachea midline Respiratory/Chest: chest non-tender, lungs clear, normal breath sounds, no respiratory distress, no accessory muscle use Cardiovascular: regular rate, rhythm, no edema, no JVD Abdomen/GI: normal bowel sounds, non tender, soft, no organomegaly, no pulsatile mass Back: normal inspection, no muscle spasm, normal range of motion Extremities/Musculoskelatal: normal inspection, no calf tenderness, no pedal edema, normal range of motion Neurologic/Psych: no motor/sensory deficits, alert, normal mood/affect, oriented x 3 Skin: warm/dry Diagnostics Laboratory Results Results Past 24 Hours Test 03/08/17 12:05 03/08/17 12:47 03/08/17 15:14 03/08/17 15:16 Range/Units White Blood Count 12.47 4.8-10.8 K/uL Red Blood Count 4.99 4.7-6.1 M/uL Hemoglobin 15.9 14.0-18.0 g/dL Hematocrit 46.0 42-52 % Mean Corpuscular Volume 92.2 80-100 fL Mean Corpuscular Hemoglobin 31.9 25-34 pg Mean Corpuscular Hemoglobin Concent 34.6 32-36 g/dl Platelet Count 188 130-400 K/uL Mean Platelet Volume 9.7 7.4-10.4 fL Neutrophils (%) (Auto) 78.2 % Lymphocytes (%) (Auto) 9.1 % Monocytes (%) (Auto) 11.8 % Eosinophils (%) (Auto) 0.3 % Basophils (%) (Auto) 0.1 % Neutrophils # (Auto) 9.75 1.4-6.5 K/uL Lymphocytes # (Auto) 1.14 1.2-3.4 K/uL Monocytes # (Auto) 1.47 0.11-0.59 K/uL Eosinophils # (Auto) 0.04 0-0.5 K/uL Basophils # (Auto) 0.01 0-0.2 K/uL RDW Standard Deviation 45.6 36.4-46.3 fL RDW Coefficient of Variation 13.5 11.5-14.5 % Immature Granulocyte % (Auto) 0.5 % Immature Granulocyte # (Auto) 0.06 0.00-0.02 K/uL Sodium Level 130 136-145 mmol/L Potassium Level 4.3 3.5-5.1 mmol/L Chloride Level 94 98-107 mmol/L Carbon Dioxide Level 30 21-32 mmol/L Anion Gap 6.0 3-11 mmol/L Blood Urea Nitrogen 25 7-18 mg/dl Creatinine 2.07 0.60-1.40 mg/dl Est Creatinine Clear Calc Drug Dose 27.9 ml/min Estimated GFR () 32.2 Estimated GFR (Non- 27.8 BUN/Creatinine Ratio 12.2 10-20 Random Glucose 324 70-99 mg/dl Calcium Level 9.3 8.5-10.1 mg/dl Magnesium Level 2.1 1.8-2.4 mg/dl Total Creatine Kinase 36 39-308 U/L Creatine Kinase MB 1.2 0.5-3.6 ng/ml Creatine Kinase MB Ratio 3.3 0-3.0 Troponin I 0.255 0-0.045 ng/ml Beta-Hydroxybutyric Acid 13.46 0.2-2.81 mg/dL Urine Color YELLOW Urine Appearance CLEAR CLEAR Urine pH 5.0 4.5-7.5 Urine Specific [place] 1.026 1.000-1.030 Urine Protein 1+ NEG Urine Glucose (UA) 3+ NEG Urine Ketones 1+ NEG Urine Occult Blood NEG NEG Urine Nitrite NEG NEG Urine Bilirubin NEG NEG Urine Urobilinogen NEG NEG Urine Leukocyte Esterase NEG NEG Urine WBC (Auto) 1-5 0-5 /hpf Urine RBC (Auto) 0-4 0-4 /hpf Urine Hyaline Casts (Auto) 1-5 0-5 /lpf Urine Epithelial Cells (Auto) 10-20 0-5 /lpf Urine Bacteria (Auto) NEG NEG Urine Crystals AMORPHOUS SEDIMENT NONE PRSENT Urine Yeast (Auto) NONE PRSENT Microbiology Results 03/08/17 Blood Culture, Ordered Pending 03/08/17 Blood Culture, Ordered Pending Impression Assessment and Plan Cardiac / Respiratory -Sinus Tachycardia / elevated troponin: differentials include illness vs myocardial infarction vs pulmonary embolism; patient received mg in the ED, start heparin drip, D-Dimer pending, CTA ordered for rule out pulmonary embolism but canceled because of poor renal function, if D dimer elevated then proceed for nuclear V/Q scan for rule out pulmonary embolism, ultrasound of lower extremities for rule out DVT, cardiology service requested, trend troponins, obtain transthoracic echocardiogram, continue beta blockers, admit to telemetry -risk factors for myocardial infraction: previous 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 nuclear stress test scan which led to cardiac cath and 1 stent -IV heparin, continue beta blockers, aspirin, simvastatin -check TSH -risk factor for pulmonary embolism: previous pulmonary embolism in , not on anticoagulation, recent history of 6 weeks of relative immobility -patient reports smoking history in distant past but has not smoked for a long time, patient reports that he cannot take albuterol because causes tachycardia, so if nebulizer treatments needed then it be ipratropium only which is ordered as q8 hours prn for shortness of breath -CXR on admission compared to CXR on 03/05/17: No acute cardiopulmonary findings. No change in appearance of the chest, so unlikely to have pneumonia, send procalcitonin -recent treatment for bronchitis symptoms, chest pain may be pleuritic, order solumedrol IV and azithromycin -send blood cultures, flu swab, urine legionella Continue Pantoprazole for heart burn Panic disorder -Continue home dose Klonopin ,mirtazapine Diabetes -hold home glipizide -sliding scale insulin, fingerstick glucose, check [id number] Acute kidney, patient's creatinine was less than 2 when on 03/05/17. On admission , creatinine is elevated and will start IV fluids Urinary -Continue home dose tamsulosin Full Code Emergency contacts - adult children: [phone], [phone], [phone] Patient follows with [facility], [facility] PCP, J Luis Lee [facility] Level of Care Telemetry Resuscitation Status FULL RESUSCITATION VTE Prophylaxis VTE Risk Assessment Done? Y/N: Yes Risk Level: Moderate
[2017-03-08] MEDS ORDERED: IPRATROPIUM BROMIDE NEB SOLN 0.02% 2.5 ML VIAL INH PRN (16:00)
[2017-03-08] MEDS ORDERED: AZITHROMYCIN IV 500 MG in DEXTROSE 5% 250ML 250 ML IV ONE (16:00)
[2017-03-08] MEDS ORDERED: METHYLPREDNISOLONE IV 40 MG in SYRINGE 0 ML IV SCH (16:00)
[2017-03-08] MEDS ORDERED: GLUCOSE 40% GEL 15 GM TUBE PO PRN (16:15)
[2017-03-08] MEDS ORDERED: DEXTROSE 50% 50 ML SYR IV PRN (16:15)
[2017-03-08] MEDS ORDERED: GLUCOSE 10 TABS/TUBE PO PRN (16:15)
[2017-03-08] MEDS ORDERED: GLUCAGON FOR INJ 1 MG VIAL SQ PRN (16:15)
[2017-03-08 16:20] VITALS: BP 104/77; PULSE 100; TEMP 36.5; O2SAT 94; BMI 24.5
[2017-03-08 16:25] LABS: INR 1.1 (0.9-1.1)
[2017-03-08] MEDS ORDERED: SODIUM CHLORIDE 0.9% 1000ML 1,000 ML IV SCH (17:30)
[2017-03-08 17:42] LABS: INFLUENZA A PCR Neg for Influ A (NEG); INFLUENZA B PCR Neg for Influ B (NEG)
--- NOTE | 2017-03-08 20:09 | DIAGNOSTIC IMAGING REPORT ---
BILATERAL LOWER EXTREMITY VENOUS DOPPLER HISTORY: Right leg swelling. rule out DVT COMPARISON STUDY: None. FINDINGS: There is thrombus identified within the right superficial and deep femoral veins as well as the popliteal, posterior tibial, and peroneal veins. The right common femoral vein and anterior tibial veins are patent. The majority of the thrombus is occlusive to near occlusive within the right lower extremity. No DVT within the left lower extremity. IMPRESSION: 1. Extensive right lower extremity DVT as described above. 2. No DVT within the left lower externally. Electronically signed by: Ben Rudd M.D. 03/08/2017 8:08 PM Dictated Date/Time: 03/08/2017 8:06 PM
[2017-03-08 20:10] VITALS: BP 115/79; PULSE 112; TEMP 36.7; O2SAT 95
[2017-03-08] MEDS: METHYLPREDNISOLONE IV 40 MG in SYRINGE 0 ML IV SCH (20:49)
[2017-03-08] MEDS: SIMVASTATIN 10 MG TAB PO SCH (20:50)
[2017-03-08] MEDS: MIRTAZAPINE SOLTAB 15 MG PO SCH (20:50)
[2017-03-08] MEDS: CLONAZEPAM 0.5 MG TAB PO SCH (20:50)
[2017-03-08] MEDS: HYDROCODONE/ACETAMOPHEN 5/325MG TAB PO PRN (20:53)
[2017-03-08] MEDS ORDERED: INSULIN ASPART 100 UNITS/ML 3 ML PEN SC SCH (21:00)
[2017-03-08] MEDS: INSULIN ASPART 100 UNITS/ML 3 ML PEN SC SCH (21:05)
--- NOTE | 2017-03-08 21:31 | DIAGNOSTIC IMAGING REPORT ---
VENTILATION/PERFUSION SCAN HISTORY: elevated d-dimer, elevated troponin, rule out pulmonary embolism TECHNIQUE: The ventilation scan was unable to be performed due to the patient's shortness of breath. Immediately following the intravenous administration of 5.4 mCi of technetium 99 M MAA, anterior, posterior, oblique, lateral views of the chest were performed. COMPARISON STUDY: Chest 03/08/2017. FINDINGS: Multiple scattered segmental defects seen throughout the lungs on the perfusion scan. No corresponding abnormality on the chest x-ray. IMPRESSION: Multiple scattered segmental defects seen throughout the lungs on the perfusion scan without corresponding chest x-ray abnormality. Technically this study is indeterminate given the lack of a ventilation scan. However, these findings suggest a high probability scan for pulmonary embolus given the patient's known DVT. Electronically signed by: Ben Rudd M.D. 03/08/2017 9:30 PM Dictated Date/Time: 03/08/2017 9:27 PM
[2017-03-08 22:03] LABS: PTT PATIENT 39.1 SECONDS (21.0-31.0)
[2017-03-08] MEDS ORDERED: HEPARIN IV BOLUS 7,000 UNIT in SYRINGE 0 ML IV ONE (22:30)
[2017-03-08] MEDS: HEPARIN 25,000 UNIT/500ML D5W 500 ML IV PRN (22:37)
[2017-03-08 23:19] VITALS: BP 129/84; PULSE 86; TEMP 36.4; O2SAT 96
[2017-03-09] VITALS (9 sets, daily range): BP systolic 112–149; BP diastolic 74–91; PULSE 77–94; TEMP 36–36.8; O2SAT 94–98
[2017-03-09] MEDS ORDERED: NURSING VERBAL MED ORDER ONE ×3 (04:00→19:00)
[2017-03-09] MEDS ORDERED: INSULIN ASPART 100 UNITS/ML 3 ML PEN SC STA ×2 (04:01→05:12)
[2017-03-09 04:34] LABS: BASO % 0.1 %; BASO ABS # 0.01 K/uL (0-0.2); HEMATOCRIT 41.7 % (42-52); HEMOGLOBIN 14.4 g/dL (14.0-18.0); IG# 0.05 K/uL (0.00-0.02); LYMPH % 8.2 %; LYMPH ABS # 0.81 K/uL (1.2-3.4); MEAN CELL VOLUME 91.6 fL (80-100); MEAN CORPUSCULAR HEMOGLOBIN 31.6 pg (25-34); MEAN CORPUSCULAR HGB CONC 34.5 g/dl (32-36); MEAN PLATELET VOLUME 9.5 fL (7.4-10.4); MONO % 3.7 %; MONO ABS # 0.37 K/uL (0.11-0.59); NEUT % 87.5 %; NEUT ABS # 8.65 K/uL (1.4-6.5); PLATELET COUNT 141 K/uL (130-400); RED CELL DISTRIBUTION WIDTH CV 13.4 % (11.5-14.5); RED CELL DISTRIBUTION WIDTH SD 44.6 fL (36.4-46.3); WHITE BLOOD COUNT 9.89 K/uL (4.8-10.8)
[2017-03-09 05:03] LABS: ALBUMIN 2.7 gm/dl (3.4-5.0); CALCIUM 8.5 mg/dl (8.5-10.1); CREATININE 2.05 mg/dl (0.60-1.40); POTASSIUM 4.3 mmol/L (3.5-5.1); TOTAL PROTEIN 6.5 gm/dl (6.4-8.2)
[2017-03-09 05:28] LABS: PTT PATIENT 166.9 SECONDS (21.0-31.0)
[2017-03-09 07:29] LABS: PTT PATIENT 76.2 SECONDS (21.0-31.0)
[2017-03-09] MEDS: HEPARIN 25,000 UNIT/500ML D5W 500 ML IV PRN ×2 (07:34→22:59)
[2017-03-09] MEDS: INSULIN ASPART 100 UNITS/ML 3 ML PEN SC SCH ×4 (07:38→20:48)
[2017-03-09] MEDS: ASPIRIN 81 MG ECTAB PO SCH (07:38)
[2017-03-09] MEDS: PANTOprazole SOD 40 MG TAB PO SCH (07:39)
[2017-03-09] MEDS: TIOTROPIUM BROMIDE 5 PUFF/90 MCG INH INH SCH (07:39)
[2017-03-09] MEDS: TAMSULOSIN HCL 0.4 MG CAP PO SCH (07:39)
[2017-03-09] MEDS: CLONAZEPAM 0.5 MG TAB PO SCH ×3 (07:42→20:46)
[2017-03-09] MEDS ORDERED: METOPROLOL TARTRATE 25 MG TAB PO SCH (09:00)
--- NOTE | 2017-03-09 09:21 | ECHOCARDIOGRAM REPORT ---
*NOTICE TO RECEIVING LIBERTARIAN AGENCY This information is strictly Confidential and protected under [place] law. [place] law prohibits you from making any further disclosure of this information unless further disclosure is expressly permitted by the written consent of the person to whom it pertains or is authorized by law. A general authorization for the release of medical or other information is not sufficient for this purpose. Hospital accepts no responsibility if the information is made available to any other person, INCLUDING THE PATIENT. Interpretation Summary * Grossly normal valvular structure and function. * -- Conclusions -- * The left ventricular cavity is small. * Left ventricular systolic function is moderate to severely reduced. * Ejection Fraction = 30-35%. * The right ventricle is moderate to severely dilated. * The right ventricular systolic function is moderate to severely reduced. * The left atrial size is normal. * The right atrium is moderately dilated. * No significant valvular pathology with technically limited study. Procedure Details * A complete two-dimensional transthoracic echocardiogram was performed (2D, M-mode, Doppler and color flow Doppler). Left Ventricle * The left ventricular cavity is small. * Ejection Fraction = 30-35%. * Left ventricular systolic function is moderate to severely reduced. Right Ventricle * The right ventricle is moderate to severely dilated. * The right ventricular systolic function is moderate to severely reduced. Atria * The left atrial size is normal. * The right atrium is moderately dilated. Mitral Valve * The mitral valve is not well visualized. * Significant mitral regurgitation is absent. Tricuspid Valve * The tricuspid valve is not well visualized. * Significant tricuspid regurgitation is absent. Aortic Valve * The aortic valve is not well visualized. * No hemodynamically significant valvular aortic stenosis. * There is no significant aortic regurgitation. Pulmonic Valve * The pulmonic valve is not well visualized. Pericardium/Pleural * There is no pericardial effusion. MMode 2D Measurements and Calculations IVSd 1.3 cm IVSs 1.5 cm LVIDd 4.2 cm LVIDs 3.5 cm LVPWd 1.0 cm LVPWs 1.4 cm IVS/LVPW 1.2 FS 16.9 % EDV(Teich) 76.8 ml ESV(Teich) 49.4 ml EF(Teich) 35.7 % EDV(cubed) 72.0 ml ESV(cubed) 41.3 ml EF(cubed) 42.6 % % IVS thick 21.5 % % LVPW thick 34.4 % LV mass(C)d 162.0 grams LV mass(C)dI 78.1 grams/m\S\2 LV mass(C)s 179.1 grams LV mass(C)sI 86.3 grams/m\S\2 SV(Teich) 27.4 ml SI(Teich) 13.2 ml/m\S\2 SV(cubed) 30.7 ml SI(cubed) 14.8 ml/m\S\2 Ao root diam 4.3 cm Ao root area 14.3 cm\S\2 ACS 1.8 cm LVOT diam 2.1 cm LVOT area 3.4 cm\S\2 LVAd ap4 26.8 cm\S\2 LVLd ap4 8.4 cm EDV(MOD-sp4) 72.9 ml EDV(sp4-el) 72.3 ml LVAs ap4 19.2 cm\S\2 LVLs ap4 6.7 cm ESV(MOD-sp4) 47.1 ml ESV(sp4-el) 46.4 ml EF(MOD-sp4) 35.3 % EF(sp4-el) 35.8 % LVAd ap2 18.6 cm\S\2 LVLd ap2 7.8 cm EDV(MOD-sp2) 40.3 ml EDV(sp2-el) 37.4 ml LVAs ap2 14.1 cm\S\2 LVLs ap2 7.0 cm ESV(MOD-sp2) 26.8 ml ESV(sp2-el) 24.2 ml EF(MOD-sp2) 33.5 % EF(sp2-el) 35.3 % LVLd %diff -7.36 % EDV(MOD-bp) 55.7 ml LVLs %diff 4.0 % ESV(MOD-bp) 34.8 ml EF(MOD-bp) 37.5 % SV(MOD-sp4) 25.7 ml SI(MOD-sp4) 12.4 ml/m\S\2 SV(MOD-sp2) 13.5 ml SI(MOD-sp2) 6.5 ml/m\S\2 SV(MOD-bp) 20.9 ml SI(MOD-bp) 10.1 ml/m\S\2 SV(sp4-el) 25.9 ml SI(sp4-el) 12.5 ml/m\S\2 SV(sp2-el) 13.2 ml SI(sp2-el) 6.4 ml/m\S\2 Doppler Measurements and Calculations MV E max beth 62.6 cm/sec MV A max beth 127.7 cm/sec MV E/A 0.49 MV dec time 0.40 sec Ao V2 max 144.7 cm/sec Ao max PG 8.4 mmHg Ao max PG (full) 6.0 mmHg CELESTINA(V,A) 1.8 cm\S\2 CELESTINA(V,D) 1.8 cm\S\2 LV V1 max PG 2.4 mmHg LV V1 max 77.2 cm/sec PA V2 max 70.7 cm/sec PA max PG 2.0 mmHg TR max beth 182.9 cm/sec
[2017-03-09] MEDS: METHYLPREDNISOLONE IV 40 MG in SYRINGE 0 ML IV SCH (09:28)
--- NOTE | 2017-03-09 10:39 | CARDIOLOGY CONSULTATION ---
DATE OF CONSULTATION: 03/09/2017 ADDENDUM DIAGNOSTIC STUDIES: Echocardiogram moderate left ventricular dysfunction with an EF in the range of 30%-35%, associated right ventricular dysfunction with [id number] RV dysfunction. LABORATORY STUDIES: Baseline troponin upon admission 0.232 trending down to 0.131. ProBNP was 10,893. Sodium 131, potassium 4.3, BUN 29, creatinine 2.05. His blood sugars are 397. His white count on admission was 12.47. His platelet count was 188. His PTT is 76. His influenza is negative. Lung scan intermediate probability. Venous Doppler extensive right DVT, none on the left. Chest x-ray, no cardiopulmonary findings. IMPRESSION: 1. Mild troponin elevation, which is likely the result of a combination of demand ischemia, potential right ventricular dysfunction from presumed pulmonary embolism. 2. Coronary artery disease, status post angioplasty and stenting in 2001 of an unknown vessel. I would continue with medical therapy including aspirin. I would change and up-titrate his beta blockers given his left ventricular dysfunction to Toprol-XL 12.5 mg b.i.d. He is intolerant of CRISTIANO inhibitors based on his allergies given his renal dysfunction and using angiotensin receptor blockers is challenging. He remains on simvastatin. 3. Moderate ischemic cardiomyopathy. 4. Elevated BNP without clinical signs of heart failure. 5. History of prior deep venous thrombosis in the 1950s with a recent period of being sedentary. The question is if the right deep venous thrombosis, chronic or acute. His VQ scan was read as intermediate probability based on his deep venous thrombosis study. He is currently anticoagulated. 6. Bronchitis, currently on antibiotics. 7. Episode of supraventricular tachycardia at a rate of 170 beats per minute. As noted, I would increase his beta janice as this was a narrow complex tachycardia. I would continue to monitor him. Overnight he has not had any significant arrhythmias other than premature atrial contractions and premature ventricular contractions. 8. Chronic kidney disease with creatinine at 2. Dr. Jeffries will return tomorrow. Thank you for allowing us to participate in his care.
--- NOTE | 2017-03-09 12:17 | CARDIOLOGY CONSULTATION ---
DATE OF CONSULTATION: 03/09/2017 REQUESTING PHYSICIAN: Dr. Mckinley. MANNEQUIN DECORATOR: Vidal Ward DO, [facility] Cardiology for Dr. Jesús Jeffries, who is the patient's primary trim machine adjuster. REASON FOR CONSULTATION: Known CAD, slightly elevated troponin, shortness of breath. The original dictation was lost in the dictation system. There is an addendum on the same date starting with the diagnostic studies. Dear Dr. Mckinley, Thank you for requesting cardiology consultation on Aleksandra with regards to his shortness of breath and mildly elevated troponin elevation. As you know, he is a very pleasant 86-year-old gentleman who approximately 6 weeks ago hurt his left heel, which required multiple stitches. He was unable to walk on it and then he noted that through the healing process, it did not completely heal and he needed to have an additional procedure done. He notes over the last 4-6 weeks, he has been relatively sedentary as he has been unable to walk with his left foot. He notes about 10 days ago, he had a cough with yellowish green sputum and over the last 3 nights, he has had night sweats, but denies fevers and chills. He notes he has had increasing shortness of breath over the last couple of days. He also had chest tightness, but that only occurred with coughing or taking a deep breath. Yesterday, he was sitting on the toilet, he did not feel well. He got up, he was lightheaded and dizzy and then he fell to the floor. He remembers falling to the floor, he remembers the entire event. His was home with him. He laid on the floor and when he felt strong enough, he pulled himself into bed. He appeared more short of breath and did not feel well. He notes he has had decreased appetite and has had weight loss over the last 4 days. Of note, in the 1950s, he had injured his leg and was in a cast and he had a pulmonary embolism at that time and he notes this felt similar to that, but not quite as severe as in the 1950s. He denies any bleeding, bruising, dark stools or black stools. He has had no chest pain or chest pressure other than with his illness throughout January. He denies PND or orthopnea. He has chronic lower extremity edema of his right leg after an injury to his right ankle. He also in the Emergency Room was found to have sinus tachycardia and he was also found to have SVT at a rate in the 170s. He has had no further palpitations or fluttering or feeling his heart racing. The rest of review of systems is otherwise negative. SOCIAL HISTORY: He is retired. He is , he lives with his . He denies any tobacco or alcohol. FAMILY HISTORY: Positive for hypertension, heart disease, diabetes and kidney disease. ALLERGIES: CRISTIANO INHIBITORS CAUSED COUGH, ALBUTEROL, FINASTERIDE, LEVALBUTEROL, SERTRALINE, SHELLFISH, SHRIMP AND SUCCINYLCHOLINE. MEDICATIONS: Reviewed in electronic medical record. PAST MEDICAL HISTORY: 1. Coronary artery disease status post myocardial infarction in 2001 with subsequent angioplasty and stenting at [facility]. 2. Ischemic cardiomyopathy. 3. Episode of SVT this admission. 4. BPH. 5. Prior pulmonary embolism and history of DVT. 6. BPH. 7. Hyperlipidemia. 8. Diabetes mellitus type 2. PHYSICAL EXAMINATION: GENERAL: He is awake, alert, oriented x3. He is in no acute distress. He looks younger than his stated age. VITAL SIGNS: His heart rate is 84, respirations 20, blood pressure 133/86, sats 98% on room air. HEENNT: Moderately reduced carotid upstrokes. No evidence of carotid bruits. Jugular venous pressure did not appear elevated. His sclerae is anicteric. His hearing is moderately diminished. LUNGS: Clear to auscultation bilaterally. No rales, rhonchi or wheezing. HEART: Regular rate and rhythm. No appreciable murmurs, rubs or gallops. ABDOMEN: Soft, nontender, nondistended, positive bowel sounds. EXTREMITIES: No clubbing or cyanosis. He does have edema of the right leg. PSYCHIATRIC: His affect appeared appropriate. EKG and telemetry were reviewed in detail. LABORATORY STUDIES: Initial troponin 0.232 trending down to 0.131. His ProBNP was 10,893. Sodium 131, potassium 4.3, BUN 29, creatinine 2.05. His imaging studies were reviewed including his lung scan and his venous duplex, which revealed a DVT in the right leg. Question if this is chronic in etiology and none in the left leg, which is the leg that was most recently injured. Please see the additional addendum from the same date for the impression and plan.
--- NOTE | 2017-03-09 13:11 | CARDIOLOGY CONSULTATION ---
DATE OF CONSULTATION: 03/09/2017 REQUESTING PHYSICIAN: Dr. Mckinley. DIRECTOR SUMMER SESSIONS: Vidal Ward DO of [facility] Cardiology for Dr. Jesús Jeffries, who is the patient's primary carbon electrodes supervisor. REASON FOR CONSULTATION: Chest pain and elevated troponin. Dear Dr. Mckinley, Thank you for requesting consultation on Mr. Wagner with regards to his known coronary artery disease and associated shortness of breath and mildly elevated troponin. As you know, he is a remarkably good 86-year-old, who notes about 6 weeks ago that he hurt his left heel. He had a gash on it that required sutures. He notes he was relatively sedentary over the 4-week period until it healed and there were some complications with that healing process that delayed his ability to ambulate. He notes about 10 days ago, he started noticing increasing shortness of breath. He also had a productive cough with yellowish green sputum. Over the last 3 nights, he has noted night sweats. He has chronic swelling of his right leg. He denied any swelling of his left leg. He notes the swelling in his right leg was related to prior ankle injury. Yesterday, he awoke and went to the bathroom. While sitting on the toilet, he started feeling lightheaded and dizzy. He got up and he notes he felt very weak and fell to the floor. He states that he remembers the entire episode including falling and hitting the floor. His was with him. He laid there for a period of time and then when he felt stronger, he pulled himself up to the bed and laid in bed. He describes increasing shortness breath over the last couple of days. He does note that when he would cough or take a really big breath, he would have some mild chest discomfort, but he denied any chest pain or chest pressure with activity. He notes that the symptoms were similar to when he had pulmonary embolism in early 1950s, also associated with a period of inactivity when he had a cast on his lower extremity. His appetite has been poor. He has lost weight over the last week or so. He notes that he just feels weak. In the emergency room, he was found to have sinus tachycardia at a rate of 121 beats per minute. His O2 sat was 97%. In addition, he appears to have a run of supraventricular tachycardia at approximately 170 beats per minute. The rest of review of systems is otherwise negative. PAST MEDICAL HISTORY: 1. Coronary artery disease, status post myocardial infarction in 2001, status post angioplasty and stenting at the [facility] in [place] of an unknown artery. 2. Moderate left ventricular dysfunction with an EF in the range of 30%-35%, right ventricular dysfunction with the right ventricle being mild to moderately dilated, and associated RV dysfunction. 3. Prior history of pulmonary embolism. 4. Diabetes mellitus type 2. 5. Hyperlipidemia. 6. BPH. 7. Hypertension. 8. Chronic kidney disease with baseline creatinine of 2. FAMILY HISTORY: Positive for hypertension, cancer, diabetes, heart disease and kidney disease. SOCIAL HISTORY: Lifetime nonsmoker. He is . He lives with his . He is retired. ALLERGIES: SHELLFISH, SHRIMP, SUCCINYLCHOLINE, ALBUTEROL, FINASTERIDE, SERTRALINE, LEVALBUTEROL AND RAMIPRIL. HOME MEDICATIONS: Reviewed. PHYSICAL EXAMINATION: GENERAL: He is awake, alert, and oriented x3. He looks quite good for his age. He is in no acute distress. VITAL SIGNS: His heart rate is 84. His respirations are 20. His blood pressure is 133/86. His pulse ox is 98% on room air. HEENNT: Moderately reduced carotid upstrokes. No evidence of carotid bruits. Jugular venous pressure did not appear elevated. His sclerae are anicteric. His hearing is reduced. LUNGS: Clear to auscultation bilaterally. No rales, rhonchi or wheezing. HEART: Regular rate and rhythm. No appreciable murmurs, rubs or gallops. ABDOMEN: Soft, nontender and nondistended. Positive bowel sounds. EXTREMITIES: No clubbing or cyanosis. He does have edema of the right leg. PSYCHIATRIC: His affect appeared appropriate. NEUROLOGIC: He is awake, alert and oriented x3. Echocardiogram in this admission, EF 30%-35%. Right ventricle is moderately severely dilated with moderate to severe RV dysfunction. EKG, normal sinus rhythm, anterior septal T-wave inversions, consider ischemia. Nonspecific IVCD. V/Q scan, intermediate probability on the face of a venous duplex, suggesting extensive right lower extremity DVT. DICTATION ENDS HERE.
[2017-03-09] MEDS: HYDROCODONE/ACETAMOPHEN 5/325MG TAB PO PRN ×2 (13:55→21:44)
--- NOTE | 2017-03-09 14:52 | Progress Note ---
Internal Med Progress Note Date of Service: Mar 09, 2017. Provider Documentation: SUBJECTIVE: Patient breathing on nasal cannula, no acute distress OBJECTIVE: Exam: General- no acute distress Eyes- EOMI Neck- no JVD, trachea midline Lungs- clear to auscultation bilaterally Heart- mild tachycardia Abdomen- soft,nontender, + bowel sounds Extremities- edema of the right leg Neuro- awake and alert ASSESSMENT & PLAN: Lower extremity ultrasound 03/08/17 There is thrombus identified within the right superficial and deep femoral veins as well as the popliteal, posterior tibial, and peroneal veins. The right common femoral vein and anterior tibial veins are patent. The majority of the thrombus is occlusive to near occlusive within the right lower extremity. No DVT within the left lower extremity Lung scan nuclear medicine 03/08/17 Multiple scattered segmental defects seen throughout the lungs on the perfusion scan without corresponding chest x-ray abnormality. Technically this study is indeterminate given the lack of a ventilation scan. However, these findings suggest a high probability scan for pulmonary embolus given the patient's known DVT Echocardiogram 03/09/17 * Ejection Fraction = 30-35%. * The right ventricle is moderate to severely dilated. * The right ventricular systolic function is moderate to severely reduced. * The left atrial size is normal. * The right atrium is moderately dilated. * No significant valvular pathology with technically limited study. Plan Shortness of breath, tachycardia likely due to right lower extremity DVT and high probability of pulmonary embolism from corroboration with Lung scan nuclear medicine results -Patient was anticoagulated on IV heparin in ED presentation on 03/08/17 with shortness of breath and tachycardia with elevated troponins. Patient found to have right lower extremity DVT and high probability of pulmonary embolism on Lung nuclear medicine scan. Patient will continue to have IV heparin with initial coumadin 5 mg starting evening of 03/09/17 -history of bronchitis: CXR on admission compared to CXR on 03/05/17: No acute cardiopulmonary findings, patient received solumedrol IV and azithromycin on admission, transition to oral prednisone, hold off antibiotics for now -Flu negative -Urine legionella pending -F/u blood cultures 01/06/18 -patient reports smoking history in distant past but has not smoked for a long time, patient reports that he cannot take albuterol because causes tachycardia, so if nebulizer treatments needed then it be ipratropium only which is ordered as q8 hours prn for shortness of breath Coronary artery disease, status post angioplasty and stenting in 2002 / Moderate ischemic cardiomyopathy / Elevated BNP without clinical signs of heart failure -Episode of supraventricular tachycardia at a rate of 170 beats per minute in the ED which improved after IV Lopressor -Premature atrial contractions and premature ventricular contractions on telemetry -Troponins downtrending and patient evaluated by [facility] cardiology service: continue aspirin, up-titrate beta blockers to Toprol-XL 12.5 mg b.i.d. because of left ventricular dysfunction to -patient is intolerant of CRISTIANO inhibitors -continue simvastatin. Diabetes :hold home glipizide, sliding scale insulin, fingerstick glucose, blood sugars increased by recent steroid use for respiratory symptoms Normal TSH Continue Pantoprazole for heart burn Panic disorder: Continue home dose Klonopin, mirtazapine Acute kidney injury, patient's creatinine was less than 2 when on 03/05/17. On admission, creatinine is elevated and patient received IV fluids Urinary: Continue home dose tamsulosin Full Code Emergency contacts - adult children: [phone], [phone] Patient follows with [facility], [facility] affiliated PCP, J [facility] Vital Signs: Date Time Temp Pulse Resp B/P (MAP) Pulse Ox O2 Delivery O2 Flow Rate FiO2 03/09/17 13:22 36.5 82 18 112/79 (90) 94 Room Air 03/09/17 12:00 Nasal Cannula 2.0 03/09/17 08:00 Nasal Cannula 2.0 03/09/17 07:30 36.3 84 20 133/86 (102) 98 Room Air 03/09/17 04:33 36.0 03/09/17 04:02 Nasal Cannula 2.0 03/09/17 03:35 94 25 149/91 (110) 97 Nasal Cannula 2.5 03/09/17 00:00 Nasal Cannula 2.0 03/08/17 23:19 36.4 86 22 129/84 (99) 96 Nasal Cannula 2.0 03/08/17 20:15 Nasal Cannula 2.0 03/08/17 20:10 36.7 112 26 115/79 (91) 95 Nasal Cannula 3.0 03/08/17 16:20 36.5 100 22 104/77 94 Nasal Cannula 2.0 03/08/17 16:00 93 24 104/77 03/08/17 15:45 93 26 112/74 98 03/08/17 15:30 99 34 116/76 96 03/08/17 15:20 128 128/85 Lab Results: Results Past 24 Hours Test 03/08/17 15:50 03/08/17 16:00 03/08/17 20:16 03/08/17 20:41 Range/Units Prothrombin Time 11.3 9.0-12.0 SECONDS Prothromb Time International Ratio 1.1 0.9-1.1 Activated Partial Thromboplast Time 28.0 21.0-31.0 SECONDS Partial Thromboplastin Ratio 1.1 D-Dimer 5990 0-500 ug/L FEU Lactic Acid Level 1.4 0.4-2.0 mmol/L Troponin I 0.232 0-0.045 ng/ml Pro-B-Type Natriuretic Peptide 99788 0-1800 pg/ml Procalcitonin 0.17 0-0.5 ng/ml Thyroid Stimulating Hormone (TSH) 0.937 0.300-4.500 uIu/ml Influenza Type A (RT-PCR) Neg for Influ A NEG Influenza Type B (RT-PCR) Neg for Influ B NEG Bedside Glucose 381 70-99 mg/dl Test 03/08/17 21:36 03/09/17 03:40 03/09/17 04:10 03/09/17 06:37 Range/Units Activated Partial Thromboplast Time 39.1 166.9 21.0-31.0 SECONDS Partial Thromboplastin Ratio 1.5 6.4 Troponin I 0.131 0-0.045 ng/ml Bedside Glucose 397 320 70-99 mg/dl White Blood Count 9.89 4.8-10.8 K/uL Red Blood Count 4.55 4.7-6.1 M/uL Hemoglobin 14.4 14.0-18.0 g/dL Hematocrit 41.7 42-52 % Mean Corpuscular Volume 91.6 80-100 fL Mean Corpuscular Hemoglobin 31.6 25-34 pg Mean Corpuscular Hemoglobin Concent 34.5 32-36 g/dl Platelet Count 141 130-400 K/uL Mean Platelet Volume 9.5 7.4-10.4 fL Neutrophils (%) (Auto) 87.5 % Lymphocytes (%) (Auto) 8.2 % Monocytes (%) (Auto) 3.7 % Eosinophils (%) (Auto) 0.0 % Basophils (%) (Auto) 0.1 % Neutrophils # (Auto) 8.65 1.4-6.5 K/uL Lymphocytes # (Auto) 0.81 1.2-3.4 K/uL Monocytes # (Auto) 0.37 0.11-0.59 K/uL Eosinophils # (Auto) 0.00 0-0.5 K/uL Basophils # (Auto) 0.01 0-0.2 K/uL RDW Standard Deviation 44.6 36.4-46.3 fL RDW Coefficient of Variation 13.4 11.5-14.5 % Immature Granulocyte % (Auto) 0.5 % Immature Granulocyte # (Auto) 0.05 0.00-0.02 K/uL Sodium Level 131 136-145 mmol/L Potassium Level 4.3 3.5-5.1 mmol/L Chloride Level 96 98-107 mmol/L Carbon Dioxide Level 30 21-32 mmol/L Anion Gap 5.0 3-11 mmol/L Blood Urea Nitrogen 29 7-18 mg/dl Creatinine 2.05 0.60-1.40 mg/dl Est Creatinine Clear Calc Drug Dose 28.1 ml/min Estimated GFR () 32.6 Estimated GFR (Non- 28.1 BUN/Creatinine Ratio 14.1 10-20 Random Glucose 408 70-99 mg/dl Calcium Level 8.5 8.5-10.1 mg/dl Total Bilirubin 0.6 0.2-1 mg/dl Aspartate Amino Transf (AST/SGOT) 13 15-37 U/L Alanine Aminotransferase (ALT/SGPT) 23 12-78 U/L Alkaline Phosphatase 76 45-117 U/L Total Protein 6.5 6.4-8.2 gm/dl Albumin 2.7 3.4-5.0 gm/dl Globulin 3.8 2.5-4.0 gm/dl Albumin/Globulin Ratio 0.7 0.9-2 Beta-Hydroxybutyric Acid 14.48 0.2-2.81 mg/dL Test 03/09/17 06:47 03/09/17 11:22 03/09/17 13:30 Range/Units Activated Partial Thromboplast Time 76.2 53.0 21.0-31.0 SECONDS Partial Thromboplastin Ratio 2.9 2.0 Bedside Glucose 341 70-99 mg/dl Microbiology Results 03/08/17 Blood Culture, Received Pending 03/08/17 Blood Culture, Received Pending
[2017-03-09] MEDS: WARFARIN SOD 5 MG TAB PO SCH (16:10)
[2017-03-09] MEDS ORDERED: AZITHROMYCIN IV 500 MG in DEXTROSE 5% 250ML 250 ML IV SCH (17:00)
[2017-03-09] MEDS ORDERED: METOPROLOL TARTRATE 1 MG/ML VIAL IV PRN (19:15)
[2017-03-09] MEDS: MIRTAZAPINE SOLTAB 15 MG PO SCH (20:42)
[2017-03-09] MEDS: SIMVASTATIN 10 MG TAB PO SCH (20:43)
[2017-03-09] MEDS: METOPROLOL SUCC 25MG EXT REL TAB PO SCH (20:43)
[2017-03-10] VITALS (9 sets, daily range): BP systolic 118–154; BP diastolic 66–90; PULSE 70–86; TEMP 36.3–36.6; O2SAT 94–99; Ht 185.4 cm; Wt 83.2 kg
--- NOTE | 2017-03-10 07:11 | Clinical Documentation Query ---
CLINICAL DOCUMENTATION QUERY 86 year old male who presents to the Emergency Room with complaints of a resolved syncopal episode. He was found tachycardic, tachypneic, with DVT and presumed PE. Troponins are positive and could represent ventricular strain. In your clinical opinion is this patient being managed for: ( x) Probable PE with "acute cor pulmonale" evidenced by hypoxia, tachycardia, tachypnea, and +troponin's treated with cardiopulmonary support and anticoagulation. ( ) Not Agree ( ) Other explanation of clinical findings (Please Explain) ( ) Unable to determine (Please Define) ( ) Need to Discuss Clinical Indicators: HR 108, episodic tachypnea 33, Borderline RA hypoxia, +Troponin's .0255, 0.232, 0.131, & and Echo demonstrating reduced right ventricular systolic function. Treatment: O2, Heparin gtt, Warfarin, Risk Factors: Age, PE, HTN, Please clarify and document your clinical opinion in the progress notes and discharge summary. Terms such as "probable", "suspected", "likely", "questionable", "possible", or "still to be ruled out" are acceptable. IF IN AGREEMENT, YOU MUST DOCUMENT ABOVE DIAGNOSTIC STATEMENT IN DAILY PROGRESS NOTES AND DISCHARGE SUMMARY. This document is not part of the patient's record. Thank You, Jonathan Stanley, ELIF [phone]
[2017-03-10 07:27] LABS: ALBUMIN 2.4 gm/dl (3.4-5.0); CALCIUM 8.9 mg/dl (8.5-10.1); CREATININE 1.95 mg/dl (0.60-1.40); POTASSIUM 4.3 mmol/L (3.5-5.1); TOTAL PROTEIN 6.2 gm/dl (6.4-8.2)
[2017-03-10 07:36] LABS: HEMOGLOBIN A1C 8.5 % (4.5-5.6)
[2017-03-10 07:41] LABS: PTT PATIENT 74.1 SECONDS (21.0-31.0)
[2017-03-10] MEDS: ASPIRIN 81 MG ECTAB PO SCH (08:05)
[2017-03-10] MEDS: METOPROLOL SUCC 25MG EXT REL TAB PO SCH ×2 (08:06→20:43)
[2017-03-10] MEDS: TAMSULOSIN HCL 0.4 MG CAP PO SCH (08:06)
[2017-03-10] MEDS: TIOTROPIUM BROMIDE 5 PUFF/90 MCG INH INH SCH (08:06)
[2017-03-10] MEDS: PANTOprazole SOD 40 MG TAB PO SCH (08:06)
[2017-03-10] MEDS: CLONAZEPAM 0.5 MG TAB PO SCH ×3 (08:09→20:42)
[2017-03-10] MEDS: INSULIN ASPART 100 UNITS/ML 3 ML PEN SC SCH ×4 (08:13→20:49)
[2017-03-10] MEDS: HEPARIN 25,000 UNIT/500ML D5W 500 ML IV PRN ×2 (08:15→15:40)
[2017-03-10] MEDS ORDERED: PHARMACY GLYCEMIC MGMT CONSULT PRN (08:30)
[2017-03-10] MEDS ORDERED: INSULIN HUMAN REGULAR PER UNIT 8 UNITS in SYRINGE 7.92 ML IV ONE (10:00)
[2017-03-10] MEDS ORDERED: INSULIN GLARGINE SOLOSTAR 100 UNITS/ML 3 ML PEN SC ONE (10:15)
[2017-03-10] MEDS: HYDROCODONE/ACETAMOPHEN 5/325MG TAB PO PRN ×2 (11:54→22:26)
[2017-03-10 14:36] LABS: PTT PATIENT 59.8 SECONDS (21.0-31.0)
[2017-03-10] MEDS: WARFARIN SOD 5 MG TAB PO SCH (16:05)
--- NOTE | 2017-03-10 16:19 | Progress Note ---
Internal Med Progress Note Date of Service: Mar 10, 2017. Provider Documentation: SUBJECTIVE: Over the evening yesterday around 6:40 PM, patient had a breath run of SVT to 170s before returning to baseline without intervention. Patient denies feeling the symptoms at that time. Is well appearing and in good spirits today. Denies chest pain. Continues to be on nasal cannula OBJECTIVE: Exam: General- no acute distress Eyes- EOMI Neck- no JVD, trachea midline Lungs- clear to auscultation bilaterally Heart- regular rate Abdomen- soft,nontender, + bowel sounds Extremities- edema of the right leg Neuro- awake and alert ASSESSMENT & PLAN: Lower extremity ultrasound 03/08/17 There is thrombus identified within the right superficial and deep femoral veins as well as the popliteal, posterior tibial, and peroneal veins. The right common femoral vein and anterior tibial veins are patent. The majority of the thrombus is occlusive to near occlusive within the right lower extremity. No DVT within the left lower extremity Lung scan nuclear medicine 03/08/17 Multiple scattered segmental defects seen throughout the lungs on the perfusion scan without corresponding chest x-ray abnormality. Technically this study is indeterminate given the lack of a ventilation scan. However, these findings suggest a high probability scan for pulmonary embolus given the patient's known DVT Echocardiogram 03/09/17 * Ejection Fraction = 30-35%. * The right ventricle is moderate to severely dilated. * The right ventricular systolic function is moderate to severely reduced. * The left atrial size is normal. * The right atrium is moderately dilated. * No significant valvular pathology with technically limited study. Plan Shortness of breath, tachycardia likely due to right lower extremity DVT and high probability of pulmonary embolism from corroboration with Lung scan nuclear medicine results -Patient was anticoagulated on IV heparin in ED presentation on 03/08/17 with shortness of breath and tachycardia with elevated troponins. Patient found to have right lower extremity DVT and high probability of pulmonary embolism on Lung nuclear medicine scan. Patient will continue to have IV heparin with initial coumadin 5 mg starting evening of 03/09/17, continue daily coumadin -history of bronchitis: CXR on admission compared to CXR on 03/05/17: No acute cardiopulmonary findings, patient received solumedrol IV and azithromycin on admission, transitioned to oral prednisone on 03/10/17 and plan for steroid taper , hold off antibiotics -Flu negative -Urine legionella pending -blood cultures 01/06/18 no growth to date -patient reports smoking history in distant past but has not smoked for a long time, patient reports that he cannot take albuterol because causes tachycardia, so if nebulizer treatments needed then it be ipratropium only which is ordered as q8 hours prn for shortness of breath Coronary artery disease, status post angioplasty and stenting in 2001 / Moderate ischemic cardiomyopathy / Elevated BNP without clinical signs of heart failure -Episode of supraventricular tachycardia at a rate of 170 beats per minute in the ED which improved after IV Lopressor -Possible SVT on evening of 03/09/17 which self resolved -Troponins downtrending and patient evaluated by [facility] cardiology service: continue aspirin, Toprol-XL 12.5 mg -patient is intolerant of CRISTIANO inhibitors -continue simvastatin. Diabetes :hold home glipizide, sliding scale insulin, fingerstick glucose, blood sugars increased by recent steroid use for respiratory symptoms, pharmacy glycemic consult requested on 03/10/17 Normal TSH Continue Pantoprazole for heart burn Panic disorder: Continue home dose Klonopin, mirtazapine Acute kidney injury, patient's creatinine was less than 2 when on 03/05/17. On admission, creatinine is elevated and patient received IV fluids. Encourage oral hydration Urinary: Continue home dose tamsulosin Full Code Emergency contacts - adult children: [phone], [phone] Patient follows with [facility] Cardiology, [facility] affiliated PCP, J Luis Huerta [facility] Vital Signs: Date Time Temp Pulse Resp B/P (MAP) Pulse Ox O2 Delivery O2 Flow Rate FiO2 03/10/17 15:32 36.6 70 17 118/71 (87) 94 Room Air 03/10/17 12:00 Nasal Cannula 2.0 03/10/17 11:21 36.4 83 20 132/73 (92) 97 2.0 03/10/17 08:00 Nasal Cannula 2.0 03/10/17 07:36 36.3 75 18 147/90 (109) 97 2.0 03/10/17 04:00 99 Nasal Cannula 2.0 03/10/17 03:45 36.3 70 18 119/66 (83) 99 Nasal Cannula 03/09/17 23:59 96 Nasal Cannula 2.0 03/09/17 23:36 36.3 77 18 121/77 (92) 96 Nasal Cannula 03/09/17 20:00 97 Nasal Cannula 2.0 03/09/17 18:50 36.8 85 18 122/75 (91) 97 Nasal Cannula 2.0 Lab Results: Results Past 24 Hours Test 03/09/17 20:01 03/10/17 06:21 03/10/17 06:51 03/10/17 11:12 Range/Units Bedside Glucose 336 327 325 70-99 mg/dl Prothrombin Time 10.9 9.0-12.0 SECONDS Prothromb Time International Ratio 1.0 0.9-1.1 Activated Partial Thromboplast Time 74.1 21.0-31.0 SECONDS Partial Thromboplastin Ratio 2.8 Sodium Level 135 136-145 mmol/L Potassium Level 4.3 3.5-5.1 mmol/L Chloride Level 97 98-107 mmol/L Carbon Dioxide Level 31 21-32 mmol/L Anion Gap 7.0 3-11 mmol/L Blood Urea Nitrogen 37 7-18 mg/dl Creatinine 1.95 0.60-1.40 mg/dl Est Creatinine Clear Calc Drug Dose 29.6 ml/min Estimated GFR () 34.6 Estimated GFR (Non- 29.8 BUN/Creatinine Ratio 18.9 10-20 Random Glucose 355 70-99 mg/dl Calcium Level 8.9 8.5-10.1 mg/dl Total Bilirubin 0.3 0.2-1 mg/dl Aspartate Amino Transf (AST/SGOT) 13 15-37 U/L Alanine Aminotransferase (ALT/SGPT) 22 12-78 U/L Alkaline Phosphatase 69 45-117 U/L Total Protein 6.2 6.4-8.2 gm/dl Albumin 2.4 3.4-5.0 gm/dl Globulin 3.8 2.5-4.0 gm/dl Albumin/Globulin Ratio 0.6 0.9-2 Beta-Hydroxybutyric Acid 3.75 0.2-2.81 mg/dL Test 03/10/17 13:37 03/10/17 14:06 Range/Units Bedside Glucose 302 70-99 mg/dl Activated Partial Thromboplast Time 59.8 21.0-31.0 SECONDS Partial Thromboplastin Ratio 2.3
--- NOTE | 2017-03-10 17:54 | Pharmacy Progress Note ---
Glycemic Control Intl Consult Date of Service Mar 10, 2017. Scope Glycemic Pharmacist consulted by Dr Mckinley on 03/10/17 for glycemic control and to write orders per [facility] inpatient glycemic control protocol Objective Weight (Kilograms): 84.000 Accuchecks BSG (last 24hrs): Test 03/09/17 20:01 03/10/17 06:21 03/10/17 06:51 03/10/17 11:12 Bedside Glucose 336 mg/dl (70-99) 327 mg/dl (70-99) 325 mg/dl (70-99) Random Glucose 355 mg/dl (70-99) Test 03/10/17 13:37 03/10/17 16:08 Bedside Glucose 302 mg/dl (70-99) 246 mg/dl (70-99) Laboratory Data (last 24hrs) Test 03/10/17 06:21 Anion Gap 7.0 mmol/L BUN/Creatinine Ratio 18.9 Blood Urea Nitrogen 37 mg/dl Creatinine 1.95 mg/dl Potassium Level 4.3 mmol/L Sodium Level 135 mmol/L HbA1c Test 03/09/17 04:10 Hemoglobin A1c 8.5 % (4.5-5.6) H Recent Pertinent Medications Outpatient Anti-diabetic Regimen: * glipizide 5 mg PO BID * A1c = 8.5 % The patient is currently receiving: * Correctional Insulin: Novolog Correction per scale ACHS Goal Range: Low 110 mg/dL - High 140 mg/dL Correction Factor: 25 mg/dL/unit * Prandial insulin: Per carb ratio of 1 unit per 15 grams CHO consumed * Oral Agents: Held Risk Factors for Insulin Resistance: * Steroids: Prednisone 40 mg PO daily (previously on solu-medrol) * IVF: Heparin infusion * Diet: regular diet -> change to T2DM Assessment & Plan ASSESSMENT: * Mr. Wagner is 86 yr old T2DM male admitted with SOB and tachycardia secondary to RLE DVT and suspected PE. * Patient is maintained on oral anti-diabetic agents. A1c of 8.5% indicates poor glycemic control. * Patient experiencing steroid induced hyperglycemia. * Will hold oral agents for admission and utilize SQ basal bolus insulin regimen which is the recommended regimen for inpatient glycemic control. * Lantus based on weight/stress of 3 x 1 dose this am for severe hyperglycemia. Further doses based on stress of 2. Also gave a one time bolus of 8 units IV regular insulin. * Considered utilizing once daily dose of NPH to cover prednisone but I suspect patient may require longer acting basal based on A1c elevation. PLAN FOR INPATIENT GLYCEMIC CONTROL: * Holding outpatient oral diabetes medications * Basal insulin * Lantus 20 units SQ x1, then 10-14 units BID * 10 units for BSG less than 180 mg/dL, 14 units for BSG * Correctional Insulin with NOVOLOG / REGULAR per scale ACHS or Q6hrs while NPO * Goal Range: Low 110 mg/dL - High 140 mg/dL * Correction Factor: 20 mg/dL/unit * Nutritional / Prandial insulin per carb ratio of 1 unit per 8 grams CHO consumed * Overnight checks added at 00 and 04 * Please note that the plan above was derived based on current level of insulin resistance and hospital stress. These recommendations are appropriate for inpatient admission only. Plan of care upon discharge will need to be reassessed to avoid potential outpatient hypo/hyperglycemia. Thank you.
[2017-03-10] MEDS: MIRTAZAPINE SOLTAB 15 MG PO SCH (20:43)
[2017-03-10] MEDS: SIMVASTATIN 10 MG TAB PO SCH (20:44)
[2017-03-10] MEDS: INSULIN GLARGINE SOLOSTAR 100 UNITS/ML 3 ML PEN SC SCH (20:48)
[2017-03-11] MEDS: INSULIN ASPART 100 UNITS/ML 3 ML PEN SC SCH ×6 (00:16→20:19)
[2017-03-11 03:17] VITALS: BP 141/78; PULSE 68; TEMP 36.6; O2SAT 95
--- NOTE | 2017-03-11 04:45 | Clinical Documentation Query ---
CLINICAL DOCUMENTATION QUERY 86 year old male who presents to the Emergency Room with complaints of a resolved syncopal episode. He was found tachycardic, tachypneic, with DVT and presumed PE. Troponins are positive and could represent ventricular strain. In your clinical opinion is this patient being managed for: ( ) Probable PE with "acute cor pulmonale" evidenced by hypoxia, tachycardia, tachypnea, and +troponin's treated with cardiopulmonary support and anticoagulation. ( ) Not Agree ( ) Other explanation of clinical findings (Please Explain) ( ) Unable to determine (Please Define) ( ) Need to Discuss The medical record reflects the following clinical findings, treatment, and risk factors. Clinical Indicators: HR 108, episodic tachypnea 33, Borderline RA hypoxia, +Troponin's .0255, 0.232, 0.131, & and Echo demonstrating reduced right ventricular systolic function. Treatment: O2, Heparin gtt, Warfarin, Risk Factors: Age, PE, HTN, Please clarify and document your clinical opinion in the progress notes and discharge summary. Terms such as "probable", "suspected", "likely", "questionable", "possible", or "still to be ruled out" are acceptable. IF IN AGREEMENT, YOU MUST DOCUMENT ABOVE DIAGNOSTIC STATEMENT IN DAILY PROGRESS NOTES AND DISCHARGE SUMMARY. This document is not part of the patient's record. Thank You, Jonathan Stanley, RN [phone]
[2017-03-11 04:54] LABS: HEMATOCRIT 39.3 % (42-52); HEMOGLOBIN 13.3 g/dL (14.0-18.0); MEAN CELL VOLUME 91.6 fL (80-100); MEAN CORPUSCULAR HGB CONC 33.8 g/dl (32-36); MEAN PLATELET VOLUME 9.3 fL (7.4-10.4); PLATELET COUNT 199 K/uL (130-400); RED CELL DISTRIBUTION WIDTH CV 13.5 % (11.5-14.5); WHITE BLOOD COUNT 12.28 K/uL (4.8-10.8)
[2017-03-11 05:13] LABS: INR 1.2 (0.9-1.1)
[2017-03-11 05:14] LABS: CALCIUM 8.6 mg/dl (8.5-10.1); CREATININE 1.75 mg/dl (0.60-1.40); POTASSIUM 4.1 mmol/L (3.5-5.1)
[2017-03-11] MEDS: METOPROLOL SUCC 25MG EXT REL TAB PO SCH ×2 (08:01→20:10)
[2017-03-11] MEDS: TAMSULOSIN HCL 0.4 MG CAP PO SCH (08:01)
[2017-03-11] MEDS: ASPIRIN 81 MG ECTAB PO SCH (08:02)
[2017-03-11] MEDS: PANTOprazole SOD 40 MG TAB PO SCH (08:02)
[2017-03-11] MEDS: TIOTROPIUM BROMIDE 5 PUFF/90 MCG INH INH SCH (08:03)
[2017-03-11] MEDS: INSULIN GLARGINE SOLOSTAR 100 UNITS/ML 3 ML PEN SC SCH ×2 (08:07→20:18)
[2017-03-11] MEDS: CLONAZEPAM 0.5 MG TAB PO SCH ×3 (08:07→20:15)
[2017-03-11 08:52] VITALS: BP 121/63; PULSE 84; TEMP 36.3; O2SAT 98
[2017-03-11 11:50] VITALS: BP 138/74; PULSE 89; TEMP 37; O2SAT 95
--- NOTE | 2017-03-11 13:00 | Pharmacy Progress Note ---
Pharmacy Glycemic Short Note 2 Date of Service Mar 11, 2017. OUTPATIENT ANTIDIABETIC REGIMEN: * Glipizide 5mg PO BIDM * A1c = 8.5% on 03/09/17 * Adequate degree of outpatient control based on age/co-morbidities ASSESSMENT: * 86yo T2DM male maintained on oral antidiabetic agents as an outpatient { glipizide} * Oral agents are not recommended for inpatient use d/t drug interactions, changing PO intake, and difficulty titrating for acute hyper/hypoglycemia. ADA recommends re-initiating outpatient oral agents 1-2 days prior to discharge if/ when appropriate if they were held on admission. * Glipizide held on admission but only correctional/prandial insulin initiated on 03/09/17. Pt with severe sustained hyperglycemia secondary to no basal insulin + Solumedrol * 03/10/17: Weight based SQ basal bolus insulin regimen initiated. * Pt has received 92 units of insulin over the past 24hrs * 34 units of basal insulin * 58 units of prandial/correctional insulin * BSGs 03/10: 327, 325, 246, 282, 274 * BSGs 03/11: 189, 140 * Appropriate distribution of insulin as regimen should be weighted towards prandial insulin for steroid induced hyperglycemia * Suspect total daily dose is around 67 units/day now that hyperglycemia is corrected. * NPH is the preferred insulin for once daily prednisone, but suspect long- acting insulin may be needed based on A1c and sustained hyperglycemia HS -->AM with only once daily steroid. PLAN FOR INPATIENT GLYCEMIC CONTROL: * Hold outpatient oral diabetes medications * Basal insulin * Lantus 10-14 units SQ BID based on BSG * Lantus 10 units if BSG below 180 mg/dl * Lantus 14 units if BSG 180 mg/dl or above * Bolus insulin * NovoLog per scale ACHS or Q6hrs while NPO * Goal Range: Low 110 mg/dL - High 140 mg/dL * Correction Factor: 20 mg/dL/unit * Nutritional / Prandial insulin per carb ratio of 1 unit per 8 grams CHO consumed
[2017-03-11 16:03] VITALS: BP 121/69; PULSE 74; TEMP 36.8; O2SAT 96
--- NOTE | 2017-03-11 16:36 | Progress Note ---
Internal Med Progress Note Date of Service: Mar 11, 2017. Provider Documentation: SUBJECTIVE: Resting comfortably afebrile denies sob no pain eating ok OBJECTIVE: Vital Signs-as noted below Exam: General-alert and oriented. Not in distress ENT-Normal hearing Neck-no neck masses Lungs-cta b/l no wheezing or crackles Heart-S1 and S2 heard regular rate and rhythm, no murmurs Abdomen-soft bowel sounds present no tenderness no distension Extremities-no edema no erythema Neuro-alert and awake moves extremities Lab data as noted below. ASSESSMENT & PLAN: Shortness of breath, Right lower extremity DVT Acute PE-high probability on v/q scan on iv heparin and cpoumadin f/u INR stable now Coronary artery disease, status post angioplasty and stenting in 2001 / Moderate ischemic cardiomyopathy / Elevated BNP without clinical signs of heart failure -Episode of supraventricular tachycardia at a rate of 170 beats per minute in the ED which improved after IV Lopressor Most likely SVT on evening of 03/09/17 which self resolved appreciate cardiology input increased toprol xl to 12.5mg bid Diabetes home meds on hold on ISS and lantus hba1c 8.5 Normal TSH Continue Pantoprazole for heart burn Panic disorder:on Klonopin, mirtazapine Acute kidney injury, patient's creatinine was less than 2 when on 03/05/17. cr 1.7 at baseline. Urinary retention: on tamsulosin Full Code Emergency contacts - adult children: [phone] Patient follows with [facility] Cardiology, [facility] affiliated PCP, J Luis Lee [facility] DISPOSITION to be determined pt/ot Vital Signs: Date Time Temp Pulse Resp B/P (MAP) Pulse Ox O2 Delivery O2 Flow Rate FiO2 03/11/17 16:03 36.8 74 16 121/69 (86) 96 03/11/17 16:00 Ambu-Bag 03/11/17 12:00 Nasal Cannula 2.0 03/11/17 11:50 37.0 89 18 138/74 (95) 95 03/11/17 08:52 36.3 84 18 121/63 (82) 98 03/11/17 08:00 Ambu-Bag 03/11/17 04:00 Ambu-Bag 03/11/17 03:17 36.6 68 18 141/78 (99) 95 Nasal Cannula 2.5 03/11/17 00:01 Ambu-Bag 03/10/17 23:59 36.5 74 17 125/73 (90) 97 Nasal Cannula 2.5 03/10/17 20:00 95 Nasal Cannula 2.0 03/10/17 19:18 36.5 86 18 154/81 (105) 95 Room Air Lab Results: Results Past 24 Hours Test 03/10/17 20:05 03/11/17 00:10 03/11/17 04:28 03/11/17 04:38 Range/Units Bedside Glucose 282 274 189 70-99 mg/dl White Blood Count 12.28 4.8-10.8 K/uL Red Blood Count 4.29 4.7-6.1 M/uL Hemoglobin 13.3 14.0-18.0 g/dL Hematocrit 39.3 42-52 % Mean Corpuscular Volume 91.6 80-100 fL Mean Corpuscular Hemoglobin 31.0 25-34 pg Mean Corpuscular Hemoglobin Concent 33.8 32-36 g/dl RDW Standard Deviation 45.0 36.4-46.3 fL RDW Coefficient of Variation 13.5 11.5-14.5 % Platelet Count 199 130-400 K/uL Mean Platelet Volume 9.3 7.4-10.4 fL Prothrombin Time 12.5 9.0-12.0 SECONDS Prothromb Time International Ratio 1.2 0.9-1.1 Activated Partial Thromboplast Time 65.0 21.0-31.0 SECONDS Partial Thromboplastin Ratio 2.5 Sodium Level 136 136-145 mmol/L Potassium Level 4.1 3.5-5.1 mmol/L Chloride Level 101 98-107 mmol/L Carbon Dioxide Level 31 21-32 mmol/L Anion Gap 4.0 3-11 mmol/L Blood Urea Nitrogen 34 7-18 mg/dl Creatinine 1.75 0.60-1.40 mg/dl Est Creatinine Clear Calc Drug Dose 33.0 ml/min Estimated GFR () 39.4 Estimated GFR (Non- 34.0 BUN/Creatinine Ratio 19.6 10-20 Random Glucose 198 70-99 mg/dl Calcium Level 8.6 8.5-10.1 mg/dl Test 03/11/17 07:05 03/11/17 11:25 Range/Units Bedside Glucose 140 221 70-99 mg/dl
[2017-03-11] MEDS: WARFARIN SOD 5 MG TAB PO SCH (16:52)
[2017-03-11 19:27] VITALS: BP 134/75; PULSE 79; TEMP 36.5; O2SAT 93
[2017-03-11] MEDS ORDERED: NURSING VERBAL MED ORDER ONE (19:30)
[2017-03-11] MEDS ORDERED: SODIUM CHLORIDE 0.65% NA SOLN 45 ML (OCEAN) ONE (19:35)
[2017-03-11] MEDS ORDERED: SODIUM CHLORIDE 0.65% NA SOLN 45 ML (OCEAN) PRN (20:00)
[2017-03-11] MEDS: SIMVASTATIN 10 MG TAB PO SCH (20:11)
[2017-03-11] MEDS: MIRTAZAPINE SOLTAB 15 MG PO SCH (20:11)
[2017-03-11] MEDS: HYDROCODONE/ACETAMOPHEN 5/325MG TAB PO PRN (21:08)
[2017-03-12 00:18] VITALS: BP 156/82; PULSE 76; TEMP 36.6; O2SAT 93
[2017-03-12] MEDS: HEPARIN 25,000 UNIT/500ML D5W 500 ML IV PRN ×2 (03:19→21:24)
[2017-03-12 03:30] VITALS: BP 145/89; PULSE 99; TEMP 36.7; O2SAT 92
[2017-03-12 05:54] LABS: INR 1.7 (0.9-1.1)
[2017-03-12 05:56] LABS: CALCIUM 8.5 mg/dl (8.5-10.1); CREATININE 1.75 mg/dl (0.60-1.40)
[2017-03-12 05:58] LABS: PTT PATIENT 72.4 SECONDS (21.0-31.0)
[2017-03-12] MEDS: ASPIRIN 81 MG ECTAB PO SCH (07:57)
[2017-03-12] MEDS: METOPROLOL SUCC 25MG EXT REL TAB PO SCH ×2 (07:57→21:18)
[2017-03-12] MEDS: PANTOprazole SOD 40 MG TAB PO SCH (07:57)
[2017-03-12] MEDS: TAMSULOSIN HCL 0.4 MG CAP PO SCH (07:58)
[2017-03-12] MEDS: TIOTROPIUM BROMIDE 5 PUFF/90 MCG INH INH SCH (07:58)
[2017-03-12 08:02] VITALS: BP 140/73; PULSE 90; TEMP 36.8; O2SAT 96
[2017-03-12] MEDS: INSULIN ASPART 100 UNITS/ML 3 ML PEN SC SCH ×4 (08:02→21:23)
[2017-03-12] MEDS: INSULIN GLARGINE SOLOSTAR 100 UNITS/ML 3 ML PEN SC SCH ×2 (08:04→21:22)
[2017-03-12] MEDS: CLONAZEPAM 0.5 MG TAB PO SCH ×3 (08:05→21:15)
[2017-03-12] MEDS ORDERED: INSULIN ASPART 100 UNITS/ML 3 ML PEN SC ONE (08:45)
[2017-03-12] MEDS ORDERED: INSULIN GLARGINE SOLOSTAR 100 UNITS/ML 3 ML PEN SC ONE (08:45)
--- NOTE | 2017-03-12 10:41 | Pharmacy Progress Note ---
Pharmacy Glycemic Short Note 2 Date of Service Mar 12, 2017. OUTPATIENT ANTIDIABETIC REGIMEN: * Glipizide 5mg PO BIDM * A1c = 8.5% on 03/09/17 * Adequate degree of outpatient control based on age/co-morbidities ASSESSMENT: * 86yo T2DM male maintained on oral antidiabetic agents as an outpatient { glipizide} * Oral agents are not recommended for inpatient use d/t drug interactions, changing PO intake, and difficulty titrating for acute hyper/hypoglycemia. ADA recommends re-initiating outpatient oral agents 1-2 days prior to discharge if/ when appropriate if they were held on admission. * Glipizide held on admission but only correctional/prandial insulin initiated on 03/09/17. Pt with severe sustained hyperglycemia secondary to no basal insulin + Solumedrol * Weight based SQ basal bolus insulin regimen initiated on 03/10/17. NPH is the preferred insulin for once daily prednisone, but suspect long-acting insulin may be needed based on A1c and sustained hyperglycemia HS -->AM with only once daily steroid. * 03/10: Pt received 92 units of insulin 34 units of basal insulin 58 units of prandial/correctional insulin BSGs : 327, 325, 246, 282, 274 * 03/11: Pt received 74 units of insulin 24 units of basal insulin 50 units of prandial/correctional insulin BSGs: 189, 140, 221, 335, 285 * 03/12: Severe rebound hyperglycemia today from reduced total daily dose given yesterday. Both basal and prandial/correctional insulin parameters need increased. PLAN FOR INPATIENT GLYCEMIC CONTROL: * Hold outpatient oral diabetes medications * Basal insulin: increase dosing, stack dosing in AM for prednisone given in AM * Lantus 30 units (0.4units/kg) in the AM to help cover steroid induced hyperglycemia from once daily prednisone 40mg * Lantus 0-10 units at bedtime for sustained hyperglycemia * Bolus insulin: tighten parameters * NovoLog per scale ACHS or Q6hrs while NPO * Goal Range: Low 110 mg/dL - High 140 mg/dL * Correction Factor: 20 mg/dL/unit * Nutritional / Prandial insulin per carb ratio of 1 unit per 6 grams CHO consumed
[2017-03-12 11:32] VITALS: BP 138/74; PULSE 98; TEMP 36.7; O2SAT 95
[2017-03-12 12:44] LABS: PTT PATIENT 64.3 SECONDS (21.0-31.0)
[2017-03-12] MEDS: HYDROCODONE/ACETAMOPHEN 5/325MG TAB PO PRN ×2 (13:18→21:16)
[2017-03-12] MEDS: WARFARIN SOD 5 MG TAB PO SCH (15:28)
[2017-03-12 15:32] VITALS: BP 100/66; PULSE 84; TEMP 37.2; O2SAT 98
--- NOTE | 2017-03-12 16:50 | Progress Note ---
Internal Med Progress Note Date of Service: Mar 12, 2017. Provider Documentation: SUBJECTIVE: Resting comfortably denies sob or cough feeling better moved his bowels no nausea OBJECTIVE: Vital Signs-as noted below Exam: General-alert and oriented. Not in distress ENT-Normal hearing Neck-no neck masses Lungs-cta b/l no wheezing or crackles Heart-S1 and S2 heard regular rate and rhythm, no murmurs Abdomen-soft bowel sounds present no tenderness no distension Extremities-no edema no erythema Neuro-alert and awake moves extremities Lab data as noted below. ASSESSMENT & PLAN: Shortness of breath, Right lower extremity DVT Acute PE-high probability on v/q scan on iv heparin and Coumadin INR 1.7 today stable now Coronary artery disease, status post angioplasty and stenting in 2001 / Moderate ischemic cardiomyopathy / Elevated BNP without clinical signs of heart failure -Episode of supraventricular tachycardia at a rate of 170 beats per minute in the ED which improved after IV Lopressor Most likely SVT on evening of 03/09/17 which self resolved appreciate cardiology input increased Toprol xl to 12.5mg bid stable Diabetes home meds on hold on ISS and Lantus hba1c 8.5 appreciate pharmacy inputs Continue Pantoprazole for heart burn Panic disorder:on Klonopin, mirtazapine Acute kidney injury, patient's creatinine was less than 2 when on 03/05/17. cr 1.7 at baseline. Urinary retention: on tamsulosin Full Code Emergency contacts - adult children: [phone], [phone] Patient follows with [facility] Cardiology, [facility] affiliated PCP, J Luis Lee [facility] DISPOSITION to be determined pt/ot Vital Signs: Date Time Temp Pulse Resp B/P (MAP) Pulse Ox O2 Delivery O2 Flow Rate FiO2 03/12/17 16:00 Room Air 03/12/17 15:32 37.2 84 18 100/66 (77) 98 03/12/17 12:00 Room Air 03/12/17 11:32 36.7 98 18 138/74 (95) 95 03/12/17 08:02 36.8 90 18 140/73 (95) 96 03/12/17 08:00 Room Air 03/12/17 04:00 Room Air 03/12/17 03:30 36.7 99 18 145/89 (107) 92 1/31/18 00:18 36.6 76 21 156/82 (106) 93 Room Air 03/11/17 23:59 Room Air 03/11/17 20:00 Room Air 03/11/17 19:27 36.5 79 20 134/75 (94) 93 Room Air Lab Results: Results Past 24 Hours Test 03/11/17 20:16 03/12/17 04:44 03/12/17 06:58 03/12/17 11:09 Range/Units Bedside Glucose 284 331 168 70-99 mg/dl Prothrombin Time 17.4 9.0-12.0 SECONDS Prothromb Time International Ratio 1.7 0.9-1.1 Activated Partial Thromboplast Time 72.4 21.0-31.0 SECONDS Partial Thromboplastin Ratio 2.8 Sodium Level 137 136-145 mmol/L Potassium Level 4.0 3.5-5.1 mmol/L Chloride Level 101 98-107 mmol/L Carbon Dioxide Level 33 21-32 mmol/L Anion Gap 3.0 3-11 mmol/L Blood Urea Nitrogen 30 7-18 mg/dl Creatinine 1.75 0.60-1.40 mg/dl Est Creatinine Clear Calc Drug Dose 33.0 ml/min Estimated GFR () 39.4 Estimated GFR (Non- 34.0 BUN/Creatinine Ratio 17.0 10-20 Random Glucose 321 70-99 mg/dl Calcium Level 8.5 8.5-10.1 mg/dl Beta-Hydroxybutyric Acid 0.93 0.2-2.81 mg/dL Test 03/12/17 11:41 Range/Units Activated Partial Thromboplast Time 64.3 21.0-31.0 SECONDS Partial Thromboplastin Ratio 2.5
[2017-03-12 19:29] VITALS: BP 145/74; PULSE 84; TEMP 36.8; O2SAT 94
[2017-03-12] MEDS: MIRTAZAPINE SOLTAB 15 MG PO SCH (21:17)
[2017-03-12] MEDS: SIMVASTATIN 10 MG TAB PO SCH (21:18)
[2017-03-13] VITALS (9 sets, daily range): BP systolic 108–181; BP diastolic 54–84; PULSE 67–80; TEMP 36.4–36.6; O2SAT 93–96
[2017-03-13 04:51] LABS: HEMATOCRIT 38.5 % (42-52); MEAN CELL VOLUME 93.2 fL (80-100); MEAN CORPUSCULAR HEMOGLOBIN 31.5 pg (25-34); MEAN CORPUSCULAR HGB CONC 33.8 g/dl (32-36); MEAN PLATELET VOLUME 9.2 fL (7.4-10.4); PLATELET COUNT 200 K/uL (130-400); RED CELL DISTRIBUTION WIDTH CV 13.6 % (11.5-14.5); RED CELL DISTRIBUTION WIDTH SD 46.1 fL (36.4-46.3); WHITE BLOOD COUNT 10.92 K/uL (4.8-10.8)
[2017-03-13 05:05] LABS: CALCIUM 8.1 mg/dl (8.5-10.1); CREATININE 1.63 mg/dl (0.60-1.40); POTASSIUM 4.1 mmol/L (3.5-5.1)
[2017-03-13 05:24] LABS: PTT PATIENT 96.9 SECONDS (21.0-31.0)
[2017-03-13] MEDS: HEPARIN 25,000 UNIT/500ML D5W 500 ML IV PRN ×2 (06:28→19:13)
[2017-03-13 07:59] LABS: INR 2.5 (0.9-1.1)
[2017-03-13] MEDS: TIOTROPIUM BROMIDE 5 PUFF/90 MCG INH INH SCH (08:36)
[2017-03-13] MEDS: ASPIRIN 81 MG ECTAB PO SCH (08:37)
[2017-03-13] MEDS: METOPROLOL SUCC 25MG EXT REL TAB PO SCH ×2 (08:37→21:03)
[2017-03-13] MEDS: TAMSULOSIN HCL 0.4 MG CAP PO SCH (08:37)
[2017-03-13] MEDS: PANTOprazole SOD 40 MG TAB PO SCH (08:37)
[2017-03-13] MEDS: INSULIN ASPART 100 UNITS/ML 3 ML PEN SC SCH ×4 (08:40→21:24)
[2017-03-13] MEDS: CLONAZEPAM 0.5 MG TAB PO SCH ×3 (08:43→21:07)
[2017-03-13] MEDS ORDERED: INSULIN GLARGINE SOLOSTAR 100 UNITS/ML 3 ML PEN SC SCH (09:00)
[2017-03-13 13:02] LABS: PTT PATIENT 65.3 SECONDS (21.0-31.0)
[2017-03-13] MEDS: HYDROCODONE/ACETAMOPHEN 5/325MG TAB PO PRN ×2 (13:02→21:11)
[2017-03-13] MEDS ORDERED: WARFARIN SOD 4 MG TAB PO SCH (16:00)
--- NOTE | 2017-03-13 16:52 | Progress Note ---
Internal Med Progress Note Date of Service: Mar 13, 2017. Provider Documentation: SUBJECTIVE: Resting comfortably no sob ambulating in room ok afebrile no nausea likes to go home OBJECTIVE: Vital Signs-as noted below Exam: General-alert and oriented. Not in distress ENT-Normal hearing Neck-no neck masses Lungs-cta b/l no wheezing or crackles Heart-S1 and S2 heard regular rate and rhythm, no murmurs Abdomen-soft bowel sounds present no tenderness no distension Extremities-no edema no erythema Neuro-alert and awake moves extremities Lab data as noted below. ASSESSMENT & PLAN: Shortness of breath, Right lower extremity DVT Acute PE-high probability on v/q scan on iv heparin and Coumadin INR 2.5 today will overlap iv heparin one more day and stop it f/u inr stable Coronary artery disease, status post angioplasty and stenting in 2001 / Moderate ischemic cardiomyopathy / Elevated BNP without clinical signs of heart failure -Episode of supraventricular tachycardia at a rate of 170 beats per minute in the ED which improved after IV Lopressor Most likely SVT on evening of 03/09/17 which self resolved appreciate cardiology input increased Toprol xl to 12.5mg bid stable Diabetes home meds on hold on ISS and Lantus hba1c 8.5 255/173/208/175 appreciate pharmacy inputs Continue Pantoprazole for heart burn Panic disorder:on Klonopin, mirtazapine Acute kidney injury, patient's creatinine was less than 2 when on 03/05/17. cr 1.7 at baseline. Urinary retention: on tamsulosin Full Code Emergency contacts - adult children: [phone], [phone], [phone], [phone] Patient follows with [facility] PCP, J Luis Heard[facility] DISPOSITION possible d/c in am with home health pt/ot Vital Signs: Date Time Temp Pulse Resp B/P (MAP) Pulse Ox O2 Delivery O2 Flow Rate FiO2 03/13/17 15:18 36.4 78 19 108/57 (74) 94 Room Air 03/13/17 12:00 Room Air 03/13/17 11:26 36.4 74 18 155/83 (107) 94 Room Air 03/13/17 08:00 Room Air 03/13/17 07:31 68 18 181/84 (116) 95 Room Air 03/13/17 04:56 36.5 67 18 147/77 (100) 93 03/13/17 04:00 Room Air 03/13/17 00:09 36.6 74 16 140/54 (82) 95 03/13/17 00:00 Room Air 03/12/17 20:00 Room Air 03/12/17 19:29 36.8 84 18 145/74 (97) 94 Room Air Lab Results: Results Past 24 Hours Test 03/12/17 20:16 03/13/17 04:29 03/13/17 06:40 03/13/17 11:05 Range/Units Bedside Glucose 277 173 208 70-99 mg/dl White Blood Count 10.92 4.8-10.8 K/uL Red Blood Count 4.13 4.7-6.1 M/uL Hemoglobin 13.0 14.0-18.0 g/dL Hematocrit 38.5 42-52 % Mean Corpuscular Volume 93.2 80-100 fL Mean Corpuscular Hemoglobin 31.5 25-34 pg Mean Corpuscular Hemoglobin Concent 33.8 32-36 g/dl RDW Standard Deviation 46.1 36.4-46.3 fL RDW Coefficient of Variation 13.6 11.5-14.5 % Platelet Count 200 130-400 K/uL Mean Platelet Volume 9.2 7.4-10.4 fL Prothrombin Time 25.9 9.0-12.0 SECONDS Prothromb Time International Ratio 2.5 0.9-1.1 Activated Partial Thromboplast Time 96.9 21.0-31.0 SECONDS Partial Thromboplastin Ratio 3.7 Sodium Level 137 136-145 mmol/L Potassium Level 4.1 3.5-5.1 mmol/L Chloride Level 102 98-107 mmol/L Carbon Dioxide Level 31 21-32 mmol/L Anion Gap 4.0 3-11 mmol/L Blood Urea Nitrogen 29 7-18 mg/dl Creatinine 1.63 0.60-1.40 mg/dl Est Creatinine Clear Calc Drug Dose 35.4 ml/min Estimated GFR () 43.0 Estimated GFR (Non- 37.1 BUN/Creatinine Ratio 17.7 10-20 Random Glucose 225 70-99 mg/dl Calcium Level 8.1 8.5-10.1 mg/dl Test 03/13/17 12:17 03/13/17 16:03 Range/Units Activated Partial Thromboplast Time 65.3 21.0-31.0 SECONDS Partial Thromboplastin Ratio 2.5 Bedside Glucose 175 70-99 mg/dl
[2017-03-13] MEDS: SIMVASTATIN 10 MG TAB PO SCH (21:04)
[2017-03-13] MEDS: MIRTAZAPINE SOLTAB 15 MG PO SCH (21:04)
[2017-03-13] MEDS: INSULIN GLARGINE SOLOSTAR 100 UNITS/ML 3 ML PEN SC SCH (21:06)
[2017-03-14 03:09] VITALS: BP 148/76; PULSE 68; TEMP 36.4; O2SAT 95
[2017-03-14 07:10] LABS: INR 2.9 (0.9-1.1)
[2017-03-14 07:18] LABS: PTT PATIENT 93.1 SECONDS (21.0-31.0)
[2017-03-14 07:39] VITALS: BP 164/90; PULSE 75; TEMP 36.4; O2SAT 93
[2017-03-14] MEDS: ASPIRIN 81 MG ECTAB PO SCH (08:14)
[2017-03-14] MEDS: METOPROLOL SUCC 25MG EXT REL TAB PO SCH (08:15)
[2017-03-14] MEDS: TIOTROPIUM BROMIDE 5 PUFF/90 MCG INH INH SCH (08:15)
[2017-03-14] MEDS: PANTOprazole SOD 40 MG TAB PO SCH (08:15)
[2017-03-14] MEDS: TAMSULOSIN HCL 0.4 MG CAP PO SCH (08:15)
[2017-03-14] MEDS: INSULIN ASPART 100 UNITS/ML 3 ML PEN SC SCH ×2 (08:19→12:18)
[2017-03-14] MEDS: CLONAZEPAM 0.5 MG TAB PO SCH (08:23)
[2017-03-14] MEDS: HYDROCODONE/ACETAMOPHEN 5/325MG TAB PO PRN (08:27)
[2017-03-14] MEDS ORDERED: INSULIN GLARGINE SOLOSTAR 100 UNITS/ML 3 ML PEN SC SCH (09:00)
[2017-03-14 11:16] VITALS: BP 131/76; PULSE 81; TEMP 36.5; O2SAT 94
[2017-03-14] MEDS ORDERED: TPRSR25 PO (11:31)
[2017-03-14] MEDS ORDERED: CMD4 PO (11:31)
--- NOTE | 2017-03-14 11:38 | Discharge Instructions ---
Discharge Instructions Admission Admission Date: Mar 08, 2017 at 15:21 Admission Diagnosis: Elevated Troponin, Near Syncope, Sinus Tachycardia. Discharge Care Plan - Problem: (1) DVT (deep venous thrombosis) (2) Pulmonary embolism Date of VTE Diagnosis: Mar 08, 2017 Time of VTE Diagnosis: 15:40 Care Plan - Goal(s): Decrease discomfort, Improve function Care Plan - Instructions: Activity Recommendations: limitations (as tolerated) Recommended Home Diet: Type 2 Diabetes AHA Provider Instructions: Medication Instructions: * Warfarin is a medicine prescribed to prevent blood clots * Warfarin will thin your blood and help prevent new clots * Take your medications exactly as directed * Never skip a dose. Never take a double dose. If you miss a dose, take it as soon as you remember * It is important for your doctor to monitor your prothrombin time (PT). This is a lab test * Keep your appointment for lab tests Risk of Adverse Drug Reactions and Interactions: * Warfarin increases your risk of bleeding * The food you eat and other medications you take can affect how Warfarin works in your body * Ask your doctor about daily aspirin therapy * It is very important to talk with your doctor about all of the other medicines, antibiotics, vitamins or herbal products that you are taking * All of your medication must be approved by your doctor, including new medicines, as well as medicines you have taken before you started taking Warfarin Diet: * In order for Warfarin to work properly, it is important to keep your intake of Vitamin K as consistent as possible * You should avoid any sudden change in Vitamin K intake * Report any significant changes in your diet or weight to your doctor Call your Doctor if you experience any of the following: * Swelling or Pain in your leg * Sudden, continuous pain deep in a muscle * Pain that worsens when you are active or when you stand still for a long time * Chest Pain * Sudden Shortness of Breath * Rapid or pounding heart beat * Fainting * Dizziness * Cough with blood or bloody sputum * Sweating more than normal * Bruises * heavy or uncontrolled bleeding * Blood in your urine, stool or vomit * Black or tarry stools Caring for Your Self at Home: * Avoid sitting, standing or lying down for long periods without moving your legs and feet * When traveling by car, stop to get out and move around at least once every 3 hours * On long airplane, train or bus rides, get up and move around when possible * If you can't get up, wiggle your toes and tighten your calves to keep your blood moving Follow Up: * It is important for you to keep your follow up appointments with your medical provider. Follow-up Anticoagulation Therapy: Name and Phone number of Health professional/clinic/office monitoring the anticoagulation therapy: Next Date of PT/INR Laboratory Blood Draw: VTE Core Measures Inpt VTE Proph given/why not?: Warfarin (Coumadin), Other Anticoagulation (iv heparin) Reason no anticoag overlap I/P: Treatment provided - N/A Reason no anticoag overlap @DC: Treatment provided - N/A Follow Up Follow-Up: FOLLOWUP WITH FAMILY DOCTOR ON Mar AT 1PM. FOLLOWUP WITH COUMADIN CLINIC FOR COUMADIN DOSING. WILL NOTIFY COUMADIN CLINIC. COUMADIN 4MG PO DAILY IN EVENING UNTIL FURTHER INSTRUCTIONS FROM COUMADIN CLINIC. LAB: PT/INR IN 2-3 DAYS AND FOLLOW RESULTS WITH COUMADIN CLINIC. TO CHECK BLOOD SUGARS TWICE DAILY AND TO SHOW THE READINGS TO FAMILY DOCTOR FOR ANY FURTHER ADJUSTMENTS IN DIABETES MEDICATIONS. NEW MEDICATIONS: METOPROLOL SUCCINATE(LONG ACTING) 12.5 MG PO TWICE DAILY COUMADIN 4MG PO DAILY IN EVENING. STOPPED MEDICATIONS: METOPROLOL TARTRATE Laboratory Results Test Results: Hemoglobin A1c Test 03/09/17 04:10 Range/Units Estimated Average Glucose 197 mg/dl Hemoglobin A1c 8.5 H 4.5-5.6 % [facility] Recommendations: Call your doctor if: * Temperature above 101 degrees * Pain not relieved by pain medicine ordered * There is increased drainage or redness from any incision * You have any unanswered questions or concerns. Your Doctors Instructions noted above were prepared by provider Iker Ellington.
[2017-03-14 11:47] VITALS: BP 131/76; PULSE 81; TEMP 36.5; O2SAT 94
--- NOTE | 2017-03-14 17:48 | Progress Note ---
Internal Med Progress Note Date of Service: Mar 14, 2017. Provider Documentation: SUBJECTIVE: Resting comfortably denies sob ambulating fine no pain ok for discharge OBJECTIVE: Vital Signs-as noted below Exam: General-alert and oriented. Not in distress ENT-Normal hearing Neck-no neck masses Lungs-cta b/l no wheezing or crackles Heart-S1 and S2 heard regular rate and rhythm, no murmurs Abdomen-soft bowel sounds present no tenderness no distension Extremities-no edema no erythema Neuro-alert and awake moves extremities Lab data as noted below. ASSESSMENT & PLAN: Shortness of breath, Right lower extremity DVT Acute PE-high probability on v/q scan on iv heparin and Coumadin INR 2.5 mar 13 2017 will overlap iv heparin one more day and stop it inr 2.9 today mar 14 2017 discharged on Coumadin 4mg daily close f/u with Coumadin clinic duration of Coumadin as per family doctor Coronary artery disease, status post angioplasty and stenting in 2001 / Moderate ischemic cardiomyopathy / Elevated BNP without clinical signs of heart failure -Episode of supraventricular tachycardia at a rate of 170 beats per minute in the ED which improved after IV Lopressor Most likely SVT on evening of 03/09/17 which self resolved appreciate cardiology input increased Toprol xl to 12.5mg bid stable Diabetes home meds on hold on ISS and Lantus hba1c 8.5 255/173/208/175 appreciate pharmacy inputs f/u with pcp Continue Pantoprazole for heart burn Panic disorder:on Klonopin, mirtazapine Acute kidney injury, patient's creatinine was less than 2 when on 03/05/17. cr 1.7 at baseline. Urinary retention: on tamsulosin discharged home with home health Vital Signs: Date Time Temp Pulse Resp B/P (MAP) Pulse Ox O2 Delivery O2 Flow Rate FiO2 03/14/17 11:47 36.5 81 18 94 Room Air 03/14/17 11:16 36.5 81 18 131/76 (94) 94 Room Air 03/14/17 08:00 Room Air 03/14/17 07:39 36.4 75 20 164/90 (114) 93 Room Air 03/14/17 04:15 Room Air 03/14/17 03:09 36.4 68 20 148/76 (100) 95 Room Air 03/14/17 00:20 Room Air 03/13/17 23:28 36.5 73 20 126/61 (82) 96 Room Air 03/13/17 20:00 95 Room Air 03/13/17 18:51 36.6 80 20 142/78 (99) 93 Room Air Lab Results: Results Past 24 Hours Test 03/13/17 19:52 03/14/17 06:22 03/14/17 06:28 03/14/17 11:00 Range/Units Bedside Glucose 269 235 164 70-99 mg/dl Prothrombin Time 30.0 9.0-12.0 SECONDS Prothromb Time International Ratio 2.9 0.9-1.1 Activated Partial Thromboplast Time 93.1 21.0-31.0 SECONDS Partial Thromboplastin Ratio 3.6
--- NOTE | 2017-03-14 18:31 | Discharge Summary ---
Discharge Summary Date of Service Mar 14, 2017. Discharge Summary Admission Date: Mar 08, 2017 at 15:21 Discharge Date: Mar 14, 2017 Discharge Disposition: Home with services Principal Diagnosis: SOB DVT PE Secondary Diagnoses/Problems: 1) Coronary Atherosclerosis Of [place] Coronary Vessel Status: Chronic (2) Diab W Oth Spec Manifest, Type Ii Or Unspec Type, Not Uncntr Status: Chronic (3) Hyperlipidemia Nec/Nos Status: Chronic (4) Hyperplasia Of Prostate Status: Chronic (5) Hypertension Nos Status: Chronic (6) Prostatitis Nos Status: Resolved (7) Retention Of Urine Nos Status: Resolved (8) Stricture Of Ureter Status: Resolved (9) Urin Tract Infection Nos Status: Resolved Procedures: VENOUS DOPPLER: 1. Extensive right lower extremity DVT as described above. 2. No DVT within the left lower externally. V/Q SCAN: Multiple scattered segmental defects seen throughout the lungs on the perfusion scan without corresponding chest x-ray abnormality. Technically this study is indeterminate given the lack of a ventilation scan. However, these findings suggest a high probability scan for pulmonary embolus given the patient's known DVT. Medication Reconciliation New Medications: Metoprolol Succinate (Metoprolol Succinate ER) 25 Mg Tabcr 12.5 MG PO BID for 30 Days, #30 TABS 2 Refills Warfarin Sod (Coumadin) 4 Mg Tab 4 MG PO DAILY@16, #30 TAB 2 Refills Continued Medications: Allopurinol (Zyloprim) 100 Mg Tab 1 TAB PO DAILY for 30 Days, #30 TAB 5 Refills Aspirin Enteric Coated (Ecotrin Or Generic) 81 Mg Tab 81 MG PO QAM, 0 Refills Cholecalciferol (Vitamin D3) 5,000 Unit Cap 5000 INTER.UNIT PO QPM Clonazepam (Clonazepam) 0.5 Mg Tab 0.5 MG PO TID Cyanocobalamin (Vitamin B12 500MCG) 500 Mcg Tab 500 MCG PO QPM, TAB Docusate Sodium (Docusate Sodium) 100 Mg Tab 1 TAB PEG DAILY Glipizide (Glucotrol) 5 Mg Tab 5 MG PO BID, TAB Hydrocodone/Acetaminophen 5MG/325MG ([place] 5MG/325MG) Tab 1 TABLET PO Q8 PRN for Pain, TAB PRN PAIN Mirtazapine Soltab (Remeron Soltab) 15 Mg Soltab 15 MG PO HS, TAB Pantoprazole (Protonix) 40 Mg Tab 40 MG PO QAM, TAB Psyllium (Metamucil) 48.57 % Pow 5 ML PO HS Simvastatin (Zocor) 10 Mg Tab 10 MG PO HS, TAB Tamsulosin Hcl (Flomax) 0.4 Mg Cap 0.4 MG PO QAM, CAP Tiotropium [place] (Spiriva Handihaler) 30 Puff/540 Mcg Aerp 1 CAP INH DAILY for 30 Days, #1 INHALER 3 Refills Vitamin A-Beta Carotene (Vitamin A) 1 Tab Tab 1 TABS PO DAILY Discontinued Medications: Levofloxacin (Levaquin) 500 Mg Tab 500 MG PO DAILY, #5 TABS Metoprolol Tartrate (Lopressor) (Lopressor) 25 Mg Tab 12.5 MG PO QAM, TAB Valacyclovir Hcl (Valtrex) 1 Gm Tab 1 TAB PO DAILY, #10 TAB 3 Refills Admission Information HPI (per Admitting provider): 86 year old M with 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 Shortness of breath symptoms appeared to correlate with symptoms of feeling chest discomfort like a burning sensation that is exacerbated by cough and is not associated with food or activity. Patient reports that these bronchitis symptoms became worse after finishing prednisone and Z pack. Previous to today, patient has bee have presyncopal episodes and then fell down without apparent loss of consciousness. Patient had been feeling warm and sweating in his sleep, did not take a temperature because he did not have a working thermometer, and made several trips to the bathroom, during one of the trips he was returning from bathroom felt lightheaded and fell down. Patient denies head trauma as he landed on his right arm. In the ED, patient was found to be tachycardic and the EKG performed showed sinus tachycardia with PAC at 121 bpm. Also found to have troponin of 0.255. Patient was given by ED provider aspirin 324 mg. When seen by hospitalist in the ED for admission, patient heart rate around 104 beats per minute with blood pressure 114/83 and saturating 97% on nasal cannula. Patient denied chest pain. Subsequently after hospitalist left the exam room, patient had recorded run of sinus tach to 170 bpm. Patient did not have any worsening symptoms. Lopressor 5 mg IV was given and heart rate slowing down 98 beats per minute. Physical Exam (per Admitting): General Appearance: no apparent distress Head: normocephalic, atraumatic Eyes: normal inspection, EOMI, sclerae normal ENT: normal ENT inspection, hearing grossly normal, pharynx normal Neck: supple, no JVD, trachea midline Respiratory/Chest: chest non-tender, lungs clear, normal breath sounds, no respiratory distress, no accessory muscle use Cardiovascular: regular rate, rhythm, no edema, no JVD Abdomen/GI: normal bowel sounds, non tender, soft, no organomegaly, no pulsatile mass Back: normal inspection, no muscle spasm, normal range of motion Extremities/Musculoskelatal: normal inspection, no calf tenderness, no pedal edema, normal range of motion Neurologic/Psych: no motor/sensory deficits, alert, normal mood/affect, oriented x 3 Skin: warm/dry Hospital Course Shortness of breath, Right lower extremity DVT Acute PE-high probability on v/q scan on iv heparin and Coumadin INR 2.5 mar 13 2017 will overlap iv heparin one more day and stop it inr 2.9 today mar 14 2017 discharged on Coumadin 4mg daily close f/u with Coumadin clinic duration of Coumadin as per family doctor Coronary artery disease, status post angioplasty and stenting in 2001 / Moderate ischemic cardiomyopathy / Elevated BNP without clinical signs of heart failure -Episode of supraventricular tachycardia at a rate of 170 beats per minute in the ED which improved after IV Lopressor Most likely SVT on evening of 03/09/17 which self resolved appreciate cardiology input increased Toprol xl to 12.5mg bid stable Diabetes home meds on hold on ISS and Lantus hba1c 8.5 255/173/208/175 appreciate pharmacy inputs f/u with pcp Continue Pantoprazole for heart burn Panic disorder:on Klonopin, mirtazapine Acute kidney injury, patient's creatinine was less than 2 when on 03/05/17. cr 1.7 at baseline. Urinary retention: on tamsulosin discharged home with home health Total time spent on discharge = 35MINUTES This includes examination of the patient, discharge planning, medication reconciliation, and communication with other providers. Discharge Instructions Discharge Instructions Admission Admission Date: Mar 08, 2017 at 15:21 Admission Diagnosis: Elevated Troponin, Near Syncope, Sinus Tachycardia. Discharge Care Plan - Problem: (1) DVT (deep venous thrombosis) (2) Pulmonary embolism Date of VTE Diagnosis: Mar 08, 2017 Time of VTE Diagnosis: 15:40 Care Plan - Goal(s): Decrease discomfort, Improve function Care Plan - Instructions: Activity Recommendations: limitations (as tolerated) Recommended Home Diet: Type 2 Diabetes AHA Provider Instructions: Medication Instructions: * Warfarin is a medicine prescribed to prevent blood clots * Warfarin will thin your blood and help prevent new clots * Take your medications exactly as directed * Never skip a dose. Never take a double dose. If you miss a dose, take it as soon as you remember * It is important for your doctor to monitor your prothrombin time (PT). This is a lab test * Keep your appointment for lab tests Risk of Adverse Drug Reactions and Interactions: * Warfarin increases your risk of bleeding * The food you eat and other medications you take can affect how Warfarin works in your body * Ask your doctor about daily aspirin therapy * It is very important to talk with your doctor about all of the other medicines, antibiotics, vitamins or herbal products that you are taking * All of your medication must be approved by your doctor, including new medicines, as well as medicines you have taken before you started taking Warfarin Diet: * In order for Warfarin to work properly, it is important to keep your intake of Vitamin K as consistent as possible * You should avoid any sudden change in Vitamin K intake * Report any significant changes in your diet or weight to your doctor Call your Doctor if you experience any of the following: * Swelling or Pain in your leg * Sudden, continuous pain deep in a muscle * Pain that worsens when you are active or when you stand still for a long time * Chest Pain * Sudden Shortness of Breath * Rapid or pounding heart beat * Fainting * Dizziness * Cough with blood or bloody sputum * Sweating more than normal * Bruises * heavy or uncontrolled bleeding * Blood in your urine, stool or vomit * Black or tarry stools Caring for Your Self at Home: * Avoid sitting, standing or lying down for long periods without moving your legs and feet * When traveling by car, stop to get out and move around at least once every 3 hours * On long airplane, train or bus rides, get up and move around when possible * If you can't get up, wiggle your toes and tighten your calves to keep your blood moving Follow Up: * It is important for you to keep your follow up appointments with your medical provider. Follow-up Anticoagulation Therapy: Name and Phone number of Health professional/clinic/office monitoring the anticoagulation therapy: Next Date of PT/INR Laboratory Blood Draw: VTE Core Measures Inpt VTE Proph given/why not?: Warfarin (Coumadin), Other Anticoagulation (iv heparin) Reason no anticoag overlap I/P: Treatment provided - N/A Reason no anticoag overlap @DC: Treatment provided - N/A Follow Up Follow-Up: FOLLOWUP WITH FAMILY DOCTOR ON Mar AT 1PM. FOLLOWUP WITH COUMADIN CLINIC FOR COUMADIN DOSING. WILL NOTIFY COUMADIN CLINIC. COUMADIN 4MG PO DAILY IN EVENING UNTIL FURTHER INSTRUCTIONS FROM COUMADIN CLINIC. LAB: PT/INR IN 2-3 DAYS AND FOLLOW RESULTS WITH COUMADIN CLINIC. TO CHECK BLOOD SUGARS TWICE DAILY AND TO SHOW THE READINGS TO FAMILY DOCTOR FOR ANY FURTHER ADJUSTMENTS IN DIABETES MEDICATIONS. NEW MEDICATIONS: METOPROLOL SUCCINATE(LONG ACTING) 12.5 MG PO TWICE DAILY COUMADIN 4MG PO DAILY IN EVENING. STOPPED MEDICATIONS: METOPROLOL TARTRATE Laboratory Results Test Results: Hemoglobin A1c Test 03/09/17 04:10 Range/Units Estimated Average Glucose 197 mg/dl Hemoglobin A1c 8.5 H 4.5-5.6 % [facility] Recommendations: Call your doctor if: * Temperature above 101 degrees * Pain not relieved by pain medicine ordered * There is increased drainage or redness from any incision * You have any unanswered questions or concerns.
== END 2017-03-14 14:00 | disposition home health service (06) | DRG 299 ==
LOC: EDBD 11:51 → C.EDA 11:52 → C.2T 15:21 → ENRESERV 15:32
PROVIDERS: ADMIT Hospitalist; ATTEND Internal Medicine
DX: I82.411 Acute embolism and thrombosis of right femoral vein (principal); I26.99 Other pulmonary embolism without acute cor pulmonale; N17.9 Acute kidney failure, unspecified; I24.8 Other forms of acute ischemic heart disease; I47.1 Supraventricular tachycardia; I82.431 Acute embolism and thrombosis of right popliteal vein; I82.441 Acute embolism and thrombosis of right tibial vein; I82.491 Acute embolism and thrombosis of other specified deep vein of right lower extremity; J40 Bronchitis, not specified as acute or chronic; I25.10 Atherosclerotic heart disease of native coronary artery without angina pectoris; I25.5 Ischemic cardiomyopathy; E11.9 Type 2 diabetes mellitus without complications; I11.9 Hypertensive heart disease without heart failure; E78.5 Hyperlipidemia, unspecified; R33.8 Other retention of urine; N40.0 Benign prostatic hyperplasia without lower urinary tract symptoms; F41.0 Panic disorder [episodic paroxysmal anxiety]; Z79.899 Other long term (current) drug therapy; Z79.84 Long term (current) use of oral hypoglycemic drugs; Z79.82 Long term (current) use of aspirin; Z86.711 Personal history of pulmonary embolism; Z86.718 Personal history of other venous thrombosis and embolism; Z95.5 Presence of coronary angioplasty implant and graft; Z87.891 Personal history of nicotine dependence; Z82.49 Family history of ischemic heart disease and other diseases of the circulatory system; Z83.3 Family history of diabetes mellitus; Z84.1 Family history of disorders of kidney and ureter

== ENCOUNTER 2018-05-21 13:16 | Inpatient (IN) ==
[2018-05-21] MEDS ORDERED: LIDOCAINE 2% JELLY 5 ML TUBE ONE (14:14)
[2018-05-21 14:32] LABS: Basophils # (auto) 0.02 K/uL (0-0.2); Basophils % (auto) 0.2 %; Eosinophils # (auto) 0.05 K/uL (0-0.5); Eosinophils % (auto) 0.6 %; Hematocrit (blood only) 40.9 % (42-52); Hemoglobin 13.6 g/dL (14.0-18.0); Immature Granulocytes # (auto) 0.03 K/uL (0.00-0.02); Immature Granulocytes % (auto) 0.3 %; Lymphocytes # (auto) 1.01 K/uL (1.2-3.4); Lymphocytes % (auto) 11.2 %; Mean Corpuscular Hgb Conc 33.3 g/dL (32-36); Mean Corpuscular Volume 92.5 fL (80-100); Mean Platelet Volume 9.3 fL (7.4-10.4); Monocytes % (auto) 6.6 %; Neutrophils # (auto) 7.32 K/uL (1.4-6.5); Neutrophils % (auto) 81.1 %; Platelet Count 193 K/uL (130-400); RDW Coefficient of Variation 14.1 % (11.5-14.5); RDW Standard Deviation 47.3 fL (36.4-46.3); Red Blood Count 4.42 M/uL (4.7-6.1); White Blood Count 9.03 K/uL (4.8-10.8)
[2018-05-21 14:42] LABS: INR 2.3 (0.9-1.1); Prothrombin Time 22.3 Seconds (9.0-12.0)
[2018-05-21 14:50] LABS: Albumin Level 3.4 gm/dl (3.4-5.0); BUN Creatinine Ratio 11.6 (10-20); Creatinine Clr Calc Pharmacy 27.6 ml/min; Est GFR (African American) 33.5; Est GFR (Non-African American) 28.9; Potassium 4.5 mmol/L (3.5-5.1)
[2018-05-21 14:53] LABS: Bilirubin,Total 0.5 mg/dl (0.2-1); Globulin 3.4 gm/dl (2.5-4.0); Total Protein 6.8 gm/dl (6.4-8.2)
[2018-05-21 15:06] LABS: Appearance Urine Cloudy (Clear); Bacteria Urine Automated Negative (Negative); Bilirubin Urine Negative (Negative); Blood Urine 3+ (Negative); Cast Urine Automated 0 /lpf (0-5); Color Urine Orange; Epithelial Cell Urine Auto 0-5 /lpf (0-5); Glucose Urine UA 2+ (Negative); Ketones Urine Negative (Negative); Leukocyte Esterase Urine Negative (Negative); Nitrite Urine Negative (Negative); Protein Urine 4+ (Negative); RBC Urine Automated 0-4 /hpf (0-4); Urobilinogen Urine Negative (Negative); WBC Urine Automated 0 /hpf (0-5)
[2018-05-21 15:39] LABS: Bacteria Urine Negative (Negative); Epithelial Cell Urine 0-5 /lpf (0-5); RBC Urine >30 /hpf (0-4); WBC Urine 0-5 /hpf (0-5)
--- NOTE | 2018-05-21 18:39 | History & Physical Report ---
Date of Service May 21, 2018 Assessment & Plan (1) Hematuria: Present to the ER with constant hematuria with clot formation causing urinary retention On Coumadin and ASA Hgb on admission 13.6 Bladder irrigation starting in the ER, will continue Urology consult Case discussed with urologist recommended to continue bladder irrigation Will hold coumadin and aspirin for now Will keep NPO after midnight if needs to go to OR Monitor CBC (2) DVT (deep venous thrombosis): (3) Pulmonary embolism: Hx of blot clot in 1983 and 2017 Will hold coumadin due to hematuria (4) Anxiety: on Klonopin PRN (5) Acute kidney injury: (6) Stage III chronic kidney disease: Creatinine on admission 1.9, baseline creatinine btw 1.6 to 1.7 Will do gentle hydration 1L x1 Avoid nephrotoxic agents Monitor BMP (7) Chronic systolic congestive heart failure: No signs of volume overload Last ECHO on 02/27 showed LV systolic and RV function is moderate to severely reduced with EF 30-35 % Will monitor closely for sign of fluid overload (8) Diabetes: Will check Hba1c Last Hba1c 8.3 on 08/27 Hold Glipizide Starting on insulin sliding scale Monitor BS (9) Non healing left heel wound: Daily wound care Consult wound care nurse CAD Denies any chest pain Continue statin, metoprolol, aspirin Pain disorder Continue home dose hydrocodone DVT px on SCD due to hematuria CODE STATUS FULL NO [facility] History of Present Illness Chief Complaint: Hematuria Primary Care Provider: Simon Up MD 87 yo Male with PMH of DVT, PE, IBS, BPH and CKD came to the ER for hematuria. Pt said that last night he started to have hematuria. Pt said that he has bladder problem and a history of hematuria. Pt said that few times that he had hematuria in the past but usually lasts 1 hr and stopped. He said that this time hematuria did not stop. He said that he was able to urinate fine last night. He said that around 10AM this morning his urine stream was very low, then few hours later he was not able to urinate. Pt said that on his way to the ED he passed a large clot and had another one while in the ER. Pt said that hematuria his constant this time. He on coumadin for PE. Last coumadin dose was last night and he took his last dose of aspirin this morning. Pt said that about 2 weeks ago he saw blood in his stool. Denies any fevers, chills, diaphoresis, visual changes, neck pain, chest pain, nausea, vomiting and SOB Allergies Allergy/AdvReac Type Severity Reaction Status Date / Time shellfish derived Allergy Intermediate HIVES TO Verified 05/21/18 15:20 SHRIMP, HAS HAD CONTRAST MEDIA WITHOUT PROB shrimp Allergy Intermediate HIVES Verified 05/21/18 15:20 succinylcholine Allergy Intermediate PSEUDOCHOLINESTERASE Verified 05/21/18 15:20 DEFICIENCY albuterol Allergy Unknown tachycardia Verified 05/21/18 15:20 finasteride Allergy Unknown SWELLING Verified 05/21/18 15:20 OF BREAST AND TESTICLES sertraline Allergy Unknown n/v Verified 05/21/18 15:20 levalbuterol AdvReac Intermediate RAPID Verified 05/21/18 15:20 HEARTBEAT ramipril AdvReac Mild COUGH Verified 05/21/18 15:20 Home Medications Home Medications Medication Instructions Recorded Confirmed Type allopurinol 100 mg PO QAM 05/21/18 05/21/18 History aspirin 81 mg PO QAM 05/21/18 05/21/18 History cholecalciferol (vitamin D3) 5,000 unit PO PM 05/21/18 05/21/18 History [Vitamin D3] clonazepam 0.25 mg PO BID 05/21/18 05/21/18 History cyanocobalamin (vitamin B-12) 500 mcg PO QAM 05/21/18 05/21/18 History [Vitamin B-12] docusate sodium [Colace] 300 mg PO HS 05/21/18 05/21/18 History gabapentin 300 mg PO BID 05/21/18 05/21/18 History glipizide 10 mg PO BID 05/21/18 05/21/18 History hydrocodone-acetaminophen [[place]] 1 tab PO TID 05/21/18 05/21/18 History metoprolol succinate 12.5 mg PO BID 05/21/18 05/21/18 History mirtazapine 15 mg PO HS 05/21/18 05/21/18 History pantoprazole 40 mg PO QAM 05/21/18 05/21/18 History simvastatin 10 mg PO HS 05/21/18 05/21/18 History tamsulosin 0.4 mg PO HS 05/21/18 05/21/18 History tiotropium bromide [Spiriva with 1 cap INHALATION HS 05/21/18 05/21/18 History HandiHaler] warfarin 4 mg PO 6XWK 05/21/18 05/21/18 History warfarin 6 mg PO WK 05/21/18 05/21/18 History Past Med/Surg History Medical History Pulmonary embolism (Resolved) DVT (deep venous thrombosis) (Resolved) Hematuria (Acute) Anxiety (Acute) IBS (irritable bowel syndrome) Stage III chronic kidney disease (Acute) Neuropathy Surgical History Hx of bladder repair surgery Social History Communication Ability: Effective Beliefs That Will Affect Care: [employer] marital status: Life Partner Current Living Situation: Significant Other Feels Safe at Home: Yes Safety Concerns: Feels Safe At This Time Smoking Status: Former smoker Hx Alcohol Use: No Hx Substance Use: No Review of Systems All systems reviewed & are unremarkable except as noted in HPI & below Physical Exam Vital Signs (Past 24 Hours): Last Vital Signs Temp 36.5 C 05/21/18 13:36 Pulse 85 05/21/18 17:35 Resp 18 05/21/18 17:35 BP 161/91 H 05/21/18 17:35 Pulse Ox 99 05/21/18 17:35 Physical Exam: General- No acute distress Head- atraumatic Eyes- PERRL, EOMI, ENT- oropharynx clear Neck- supple, no JVD Lungs- clear to auscultation Heart- regular rhythm; no murmur Abdomen- normal bowel sounds, soft, nontender Extremities- no calf tenderness Neuro- alert, oriented x 3; PERRL, EOMI; no facial palsy; no dysarthria Skin- warm & dry
[2018-05-21] MEDS ORDERED: GLUCOSE 40% GEL 15 GM TUBE PO PRN (21:27)
[2018-05-21] MEDS ORDERED: DEXTROSE 50% 50 ML SYRINGE IV PRN (21:27)
[2018-05-21] MEDS ORDERED: GLUCAGON FOR INJ 1 MG VIAL SQ PRN (21:27)
[2018-05-21] MEDS ORDERED: GLUCOSE 10 TABS/TUBE PO PRN (21:27)
[2018-05-21] MEDS ORDERED: CARBOHYDRATES FOR HYPOGLYCEMIA PO PRN (21:27)
[2018-05-21] MEDS: HYDROCODONE/ACETAMOPHEN 5/325MG TAB PO SCH (21:57)
[2018-05-21] MEDS: SIMVASTATIN 10 MG TAB PO SCH (21:57)
[2018-05-21] MEDS: clonazePAM 0.5 MG TAB PO SCH (21:57)
[2018-05-21] MEDS: MIRTAZAPINE SOLTAB 15 MG PO SCH (21:58)
[2018-05-21] MEDS: CHOLECALCIFEROL 1,000 UNITS TAB PO SCH (21:58)
[2018-05-21] MEDS: METOPROLOL SUCC 25MG EXT REL TAB PO SCH (21:58)
[2018-05-21] MEDS: DOCUSATE SODIUM 100 MG CAP PO SCH (21:59)
[2018-05-21] MEDS: GABAPENTIN 300 MG CAP PO SCH (21:59)
[2018-05-21] MEDS: TAMSULOSIN HCL 0.4 MG CAP PO SCH (21:59)
[2018-05-21] MEDS: TIOTROPIUM BROMIDE 5 PUFF/90 MCG INH INH SCH (22:00)
[2018-05-21 22:19] LABS: Hematocrit (blood only) 40.4 % (42-52); Hemoglobin 13.3 g/dL (14.0-18.0)
--- NOTE | 2018-05-21 22:34 | Emergency Department Note ---
Entered by Courtney Elizalde acting as a scribe for Lamonte Bledsoe MD ED Provider Note CHIEF COMPLAINT: Hematuria HISTORY OF PRESENT ILLNESS: The patient is an 87 year old male presenting to the ED with hematuria beginning last night. Patient states that he has been having multiple episodes of hematuria, noting he is passing large clots. Hematuria is moderate in severity and constant since onset. Patient notes he is actively bleeding at the moment. He shares that he has had prostate problems in the past, noting he did have x1 similar hematuria episode. Patient notes he did have mild blood in the stool x1.5 weeks ago, which has subsided since. He shares he was previously taking Coumadin, and is currently taking Warfrin. He notes he does take Dr. Trammell, urology for his hematuria history. Patient shares that last time he had a catheter placed was a few years ago. Patient lastly notes that he has a hx of DVT and PE. Patient notes he is having mild bloating in the abd relating to urinary sx. Pt denies LOC, headache, fevers, chills, diaphoresis, visual changes, neck pain, chest pain, breathing difficulties, nausea, vomiting, back pain, melena, hematochezia, numbness, weakness, lymphadenopathy, rash, or other complaints. REVIEW OF SYSTEMS: See HPI for pertinent positives and negatives. A total of ten systems were reviewed and were otherwise negative. PMHx/PSHx: DVT, PE SOCIAL HISTORY: Patient lives at home. PHYSICAL EXAM: GENERAL: Awake, alert, in no distress, uncomfortable appearing. HENT: Normocephalic, atraumatic. Oropharynx unremarkable. EYES: Normal conjunctiva. Sclera non-icteric. NECK: Inspection normal. Non-tender. Supple. No nuchal rigidity. FROM. No masses. RESPIRATORY: Clear to auscultation. No wheezes. No rales. Normal respiratory effort. CARDIAC: Normal rate. Normal rhythm. No murmurs. No rubs. Extremities warm and well perfused. Pulses equal. No JVD. GI: Soft, non-distended. No tenderness to palpation. No rebound or guarding. No masses. Mild distension. : Blood in meatus RECTAL: Deferred. MUSCULOSKELETAL: Atraumatic. Chest examination reveals no tenderness. The back is symmetrical on inspection without obvious abnormality. There is no CVA tenderness to palpation. No joint edema. LOWER EXTREMITIES: Calves are equal size bilaterally and non-tender. No edema. No discoloration. Wound with silver dressing on left heel. NEURO: Normal sensorium. No sensory or motor deficits noted. SKIN: No rash or jaundice noted. EMERGENCY DEPARTMENT COURSE: 1410: The patient was evaluated in room C03, and a complete history and physical examination were performed. 1639: Updated patient on plan for admission. Patient is agreeable to plan. 1644: Discussed patient case with Cassandra Seth PA-C, for Dr. Ellington, [facility] Hospitalist. She accepts patient for admission. MEDICAL DECISION MAKING: Triage Nursing notes reviewed and agree them. Additional history obtained from the family. The patient's history was concerning for hematuria and abdominal pain. Differential diagnosis: Etiologies such as urinary retention, UTI, bladder mass, renal colic, appendicitis, diverticulitis, mesenteric ischemia, aortic pathology, infections, as well as others were entertained. Physical examination findings: The patient was in urinary retention. This is likely from blood clots ER treatment provided: Jett catheter placement with continuous bladder irrigation On reassessment the patient felt better. Diagnostic interpretation by me: The labs revealed a subtle anemia on CBC. Urinalysis revealed hematuria. There was no sign of UTI. Patient's INR was therapeutic. Consultation: I did consult with the [facility] urology team. Dr. Mendoza recommended having the patient brought into the hospital for bladder irrigation given his high likelihood he would clot a catheter. If his bleeding continues he may need reversal. A consultation was placed with the hospitalist. The case was discussed and diagnostics were reviewed. The patient was evaluated in the ER for further treatment. IMPRESSION: Hematuria PLAN: Plan for admission under Dr. Ellington's care. Impression & Plan Hematuria Past Med/Surg History Medical History Pulmonary embolism (Resolved) DVT (deep venous thrombosis) (Resolved) IBS (irritable bowel syndrome) Neuropathy Surgical History Hx of bladder repair surgery Social History Preferred Language: Somali Communication Ability: Effective Communication Ability Comment: h/a needs a new battery which s/o will bring in am Batch Tester Required: No Beliefs That Will Affect Care: [employer] Current Living Situation: Significant Other Feels Safe at Home: Yes Safety Concerns: Feels Safe At This Time Smoking Status: Former smoker Hx Alcohol Use: No Hx Substance Use: No Results & Data Vital Signs Vital Signs - 24 hr 05/21/18 13:36 05/21/18 15:53 05/21/18 17:35 Temperature 36.5 C Temperature Source Oral Sepsis Recent Fever Within 48 Hours No Sepsis New/Unexplained Change in Mental Status No Sepsis Action Taken by Nursing No Action Required Pulse Rate 100 H Pulse Rate [Apical] 90 85 Pulse Rhythm [Apical] Regular Regular Pulse Strength [Apical] Normal Respiratory Rate 16 18 18 Respiratory Effort / Characteristics Non-Labored Spontaneous Non-Labored Spontaneous Respiratory Depth Normal Normal Respiratory Pattern Regular Regular Blood Pressure 111/78 Blood Pressure [Right Arm] 123/82 161/91 H Blood Pressure Mean 89 Blood Pressure Mean [Right Arm] 95 114 Blood Pressure Position [Right Arm] Pulse Oximetry 99 97 99 Oxygen Delivery Method Room Air Room Air Room Air 05/21/18 18:40 05/21/18 22:22 Temperature 36.4 C L Temperature Source Oral Sepsis Recent Fever Within 48 Hours Sepsis New/Unexplained Change in Mental Status Sepsis Action Taken by Nursing Pulse Rate 87 Pulse Rate [Apical] 99 H Pulse Rhythm [Apical] Pulse Strength [Apical] Respiratory Rate 18 18 Respiratory Effort / Characteristics Respiratory Depth Respiratory Pattern Blood Pressure 164/87 H Blood Pressure [Right Arm] 143/83 H Blood Pressure Mean Blood Pressure Mean [Right Arm] 103 Blood Pressure Position [Right Arm] Lying Pulse Oximetry 98 95 Oxygen Delivery Method Room Air Room Air Home Medications Current Medication List: was personally reviewed by me Laboratory Data Attestation: I reviewed the patient's lab results. Result diagrams: 05/21/18 22:00 05/21/18 14:22 Lab Results 05/21/18 05/21/18 05/21/18 Range/Units 14:22 14:22 14:22 WBC 9.03 (4.8-10.8) K/uL RBC 4.42 L (4.7-6.1) M/uL Hgb 13.6 L (14.0-18.0) g/dL Hct 40.9 L (42-52) % MCV 92.5 (80-100) fL MCH 30.8 (25-34) pg MCHC 33.3 (32-36) g/dL RDW Std Deviation 47.3 H (36.4-46.3) fL RDW Coeff of Caio 14.1 (11.5-14.5) % Plt Count 193 (130-400) K/uL MPV 9.3 (7.4-10.4) fL Immature Gran % (Auto) 0.3 % Neut % (Auto) 81.1 % Lymph % (Auto) 11.2 % [place] % (Auto) 6.6 % Eos % (Auto) 0.6 % Baso % (Auto) 0.2 % Immature Gran # (Auto) 0.03 H (0.00-0.02) K/uL Neut # (Auto) 7.32 H (1.4-6.5) K/uL Lymph # (Auto) 1.01 L (1.2-3.4) K/uL [place] # (Auto) 0.60 H (0.11-0.59) K/uL Eos # (Auto) 0.05 (0-0.5) K/uL Baso # (Auto) 0.02 (0-0.2) K/uL PT 22.3 H (9.0-12.0) Seconds INR 2.3 H (0.9-1.1) Sodium 134 L (136-145) mmol/L Potassium 4.5 (3.5-5.1) mmol/L Chloride 100 (98-107) mmol/L Carbon Dioxide 29 (21-32) mmol/L Anion Gap 5.0 (3-11) BUN 23 H (7-18) mg/dl Creatinine 1.99 H (0.6-1.4) mg/dl Est Cr Clr Drug Dosing 27.6 ml/min Est GFR ( Amer) 33.5 Est GFR (Non-Af Amer) 28.9 BUN/Creatinine Ratio 11.6 (10-20) Glucose 279 H (70-99) mg/dl POC Glucose (70-99) Calcium 9.0 (8.5-10.1) mg/dl Total Bilirubin 0.5 (0.2-1) mg/dl AST 18 (15-37) U/L ALT 20 (12-78) U/L Alkaline Phosphatase 77 (45-117) U/L Total Protein 6.8 (6.4-8.2) gm/dl Albumin 3.4 (3.4-5.0) gm/dl Globulin 3.4 (2.5-4.0) gm/dl Albumin/Globulin Ratio 1.0 (0.9-2) Urine Color Urine Appearance (Clear) Urine pH (4.5-7.5) Ur Specific [place] (1.000-1.030) Urine Protein (Negative) Urine Glucose (UA) (Negative) Urine Ketones (Negative) Urine Blood (Negative) Urine Nitrite (Negative) Urine Bilirubin (Negative) Urine Urobilinogen (Negative) Ur Leukocyte Esterase (Negative) Urine WBC (Auto) (0-5) /hpf Urine RBC (Auto) (0-4) /hpf U Hyaline Cast (Auto) (0-5) /lpf U Epithel Cells (Auto) (0-5) /lpf Urine Bacteria (Auto) (Negative) Urine RBC (0-4) /hpf Urine WBC (0-5) /hpf Ur Epithelial Cells (0-5) /lpf Urine Bacteria (Negative) 05/21/18 05/21/18 05/21/18 Range/Units 14:45 19:47 22:00 WBC (4.8-10.8) K/uL RBC (4.7-6.1) M/uL Hgb 13.3 L (14.0-18.0) g/dL Hct 40.4 L (42-52) % MCV (80-100) fL MCH (25-34) pg MCHC (32-36) g/dL RDW Std Deviation (36.4-46.3) fL RDW Coeff of [place] (11.5-14.5) % Plt Count (130-400) K/uL MPV (7.4-10.4) fL Immature Gran % (Auto) % Neut % (Auto) % Lymph % (Auto) % [place] % (Auto) % Eos % (Auto) % Baso % (Auto) % Immature Gran # (Auto) (0.00-0.02) K/uL Neut # (Auto) (1.4-6.5) K/uL Lymph # (Auto) (1.2-3.4) K/uL [place] # (Auto) (0.11-0.59) K/uL Eos # (Auto) (0-0.5) K/uL Baso # (Auto) (0-0.2) K/uL PT (9.0-12.0) Seconds INR (0.9-1.1) Sodium (136-145) mmol/L Potassium (3.5-5.1) mmol/L Chloride (98-107) mmol/L Carbon Dioxide (21-32) mmol/L Anion Gap (3-11) BUN (7-18) mg/dl Creatinine (0.6-1.4) mg/dl Est Cr Clr Drug Dosing ml/min Est GFR ( Amer) Est GFR (Non-Af Amer) BUN/Creatinine Ratio (10-20) Glucose (70-99) mg/dl POC Glucose 276 H (70-99) Calcium (8.5-10.1) mg/dl Total Bilirubin (0.2-1) mg/dl AST (15-37) U/L ALT (12-78) U/L Alkaline Phosphatase (45-117) U/L Total Protein (6.4-8.2) gm/dl Albumin (3.4-5.0) gm/dl Globulin (2.5-4.0) gm/dl Albumin/Globulin Ratio (0.9-2) Urine Color [place] Urine Appearance Cloudy H (Clear) Urine pH 7.0 (4.5-7.5) Ur Specific [place] 1.030 (1.000-1.030) Urine Protein 4+ H (Negative) Urine Glucose (UA) 2+ H (Negative) Urine Ketones Negative (Negative) Urine Blood 3+ H (Negative) Urine Nitrite Negative (Negative) Urine Bilirubin Negative (Negative) Urine Urobilinogen Negative (Negative) Ur Leukocyte Esterase Negative (Negative) Urine WBC (Auto) 0 (0-5) /hpf Urine RBC (Auto) 0-4 (0-4) /hpf U Hyaline Cast (Auto) 0 (0-5) /lpf U Epithel Cells (Auto) 0-5 (0-5) /lpf Urine Bacteria (Auto) Negative (Negative) Urine RBC >30 H (0-4) /hpf Urine WBC 0-5 (0-5) /hpf Ur Epithelial Cells 0-5 (0-5) /lpf Urine Bacteria Negative (Negative) Administered Medications Hydrocodone Bitart/Acetaminophen ([place] 5/325) 1 tab PO TID [facility] Stop: 04/25/19 20:59 Last Admin: 05/21/18 21:57 Dose: 1 tab Documented by: [id number] Clonazepam (Klonopin) 0.25 mg PO BID [facility] Stop: 06/20/18 20:59 Last Admin: 05/21/18 21:57 Dose: 0.25 mg Documented by: [id number] Docusate Sodium (Colace) 300 mg PO HS [facility] Stop: 06/20/18 20:59 Last Admin: 05/21/18 21:59 Dose: 300 mg Documented by: [id number] Gabapentin (Neurontin) 300 mg PO BID [facility] Stop: 06/20/18 20:59 Last Admin: 05/21/18 21:59 Dose: 300 mg Documented by: [id number] Metoprolol Succinate (Toprol Xl) 12.5 mg PO BID [facility] Stop: 06/20/18 20:59 Last Admin: 05/21/18 21:58 Dose: 12.5 mg Documented by: [id number] Mirtazapine (Remeron Solutab) 15 mg PO [facility] Stop: 06/20/18 20:59 Last Admin: 05/21/18 21:58 Dose: 15 mg Documented by: [id number] Simvastatin (Zocor) 10 mg PO [facility] Stop: 06/20/18 20:59 Last Admin: 05/21/18 21:57 Dose: 10 mg Documented by: [id number] Tamsulosin HCl (Flomax) 0.4 mg PO [facility] Stop: 06/20/18 20:59 Last Admin: 05/21/18 21:59 Dose: 0.4 mg Documented by: [id number] Tiotropium [place] (Spiriva) 1 puffs INH [facility] Stop: 06/20/18 20:59 Last Admin: 05/21/18 22:00 Dose: 1 puffs Documented by: [id number] Vitamin D (Vitamin D3) 5,000 units PO QPM [facility] Stop: 06/20/18 20:59 Last Admin: 05/21/18 21:58 Dose: 5,000 units Documented by: [id number] Discontinued Medications Lidocaine HCl (Xylocaine Jely 2%) Confirm Administered Dose 5 ml .ROUTE .STK-MED ONE Stop: 05/21/18 14:15 Last Admin: 05/21/18 14:30 Dose: 5 ml Documented by: [id number] Blood Pressure Blood Pressure Findings: Normal blood pressure Discharge Plan Visit Data *Final* Discharge Date/Time: 05/21/18 18:40 Chief Complaint: Hematuria Stated Complaint: BLEEDING FROM BLADDER ED Provider: Lamonte Bledsoe Discharge Problem: Hematuria Patient Disposition: Admitted As Inpatient Discharge Instructions Interventions: ED Discharge Assessment Last Done: 05/21/18 18:40 Discharge Problem: Hematuria Qualifiers: Hematuria type: unspecified type Qualified Code(s): R31.9 - Hematuria, unspecified The scribe's documentation has been prepared under my direction and personally reviewed by me in its entirety. I confirm that the note above accurately reflects all work, treatment, procedures, and medical decision making performed by me.
[2018-05-22 06:52] LABS: Hematocrit (blood only) 36.4 % (42-52); Hemoglobin 12.2 g/dL (14.0-18.0); Mean Corpuscular Hgb Conc 33.5 g/dL (32-36); Mean Corpuscular Volume 91.5 fL (80-100); Platelet Count 190 K/uL (130-400); RDW Coefficient of Variation 14.2 % (11.5-14.5); RDW Standard Deviation 47.5 fL (36.4-46.3); Red Blood Count 3.98 M/uL (4.7-6.1); White Blood Count 7.72 K/uL (4.8-10.8)
[2018-05-22 07:01] LABS: INR 1.7 (0.9-1.1); Prothrombin Time 17.1 Seconds (9.0-12.0)
[2018-05-22 07:19] LABS: BUN Creatinine Ratio 12.7 (10-20); Calcium 8.4 mg/dl (8.5-10.1); Creatinine Clr Calc Pharmacy 27.1 ml/min; Est GFR (African American) 32.7; Est GFR (Non-African American) 28.2; Potassium 3.9 mmol/L (3.5-5.1)
[2018-05-22] MEDS: SODIUM CHLORIDE 0.9% 500 ML IV SCH ×2 (08:08→15:43)
[2018-05-22] MEDS: INSULIN ASPART 100 UNITS/ML 3 ML PEN SC SCH ×4 (08:33→20:54)
[2018-05-22] MEDS: CYANOCOBALAMIN 500 MCG TABLET (VITAMIN B-12) PO SCH (09:00)
[2018-05-22] MEDS: METOPROLOL SUCC 25MG EXT REL TAB PO SCH ×2 (09:00→20:53)
[2018-05-22] MEDS: PANTOprazole 40 MG TAB PO SCH (09:00)
[2018-05-22] MEDS: HYDROCODONE/ACETAMOPHEN 5/325MG TAB PO SCH ×3 (09:00→20:50)
[2018-05-22] MEDS: GABAPENTIN 300 MG CAP PO SCH ×2 (09:00→20:46)
[2018-05-22] MEDS ORDERED: INSULIN GLARGINE SOLOSTAR 100 UNITS/ML 3 ML PEN SC SCH (09:00)
[2018-05-22] MEDS: ALLOPURINOL 100 MG TAB PO SCH (09:00)
[2018-05-22] MEDS: clonazePAM 0.5 MG TAB PO SCH ×2 (09:00→20:50)
[2018-05-22 09:54] LABS: Estimated Average Glucose 206 mg/dl; Hemoglobin A1C 8.8 % (4.5-5.6)
--- NOTE | 2018-05-22 10:18 | Urology Consultation ---
Date of Consultation May 22, 2018 Assessment & Plan (1) Hematuria: Patient reports some discomfort with CBI, I clamped CBI and hand irrigated tubing with 200cc of sterile water to ensure patency, return of 1x very small clot and otherwise patent & draining light red urine. Advised nursing to continue to closely monitor. Contact our service if discomfort continues, pager number provided. Will check non-contrast CT abd/pelvis as patient has no recent imaging. Will provide diet pending results. Thanks for the consult, will continue to follow along with primary service. History of Present Illness Reason for Consultation: Gross hematuria Attending Physician: Monique Sifuentes MD History of Present Illness 87YO male with gross hematuria. Patient is established with Dr. Trammell and intermittent hematuria is a chronic issue for him. Hx of TURPx2, negative cysto 2014, negative renal US in 2018. Yesterday, patient experienced worsening bleeding that was concerning for him and he reported to the ER. CBI was initiated by ER and patient admitted. Today, he reports feeling okay. He denies fever/chills. Denies nausea/vomiting - requests breakfast. Reports that CBI is somewhat uncomfortable. Allergies Allergy/AdvReac Type Severity Reaction Status Date / Time shellfish derived Allergy Intermediate HIVES TO Verified 05/21/18 15:20 SHRIMP, HAS HAD CONTRAST MEDIA WITHOUT PROB shrimp Allergy Intermediate HIVES Verified 05/21/18 15:20 succinylcholine Allergy Intermediate PSEUDOCHOLINESTERASE Verified 05/21/18 15:20 DEFICIENCY albuterol Allergy Unknown tachycardia Verified 05/21/18 15:20 finasteride Allergy Unknown SWELLING Verified 05/21/18 15:20 OF BREAST AND TESTICLES sertraline Allergy Unknown n/v Verified 05/21/18 15:20 levalbuterol AdvReac Intermediate RAPID Verified 05/21/18 15:20 HEARTBEAT ramipril AdvReac Mild COUGH Verified 05/21/18 15:20 Home Medications Home Medications Medication Instructions Recorded Confirmed Type allopurinol 100 mg PO QAM 05/21/18 05/21/18 History aspirin 81 mg PO QAM 05/21/18 05/21/18 History cholecalciferol (vitamin D3) 5,000 unit PO PM 05/21/18 05/21/18 History [Vitamin D3] clonazepam 0.25 mg PO BID 05/21/18 05/21/18 History cyanocobalamin (vitamin B-12) 500 mcg PO QAM 05/21/18 05/21/18 History [Vitamin B-12] docusate sodium [Colace] 300 mg PO HS 05/21/18 05/21/18 History gabapentin 300 mg PO BID 05/21/18 05/21/18 History glipizide 10 mg PO BID 05/21/18 05/21/18 History hydrocodone-acetaminophen [[place]] 1 tab PO TID 05/21/18 05/21/18 History metoprolol succinate 12.5 mg PO BID 05/21/18 05/21/18 History mirtazapine 15 mg PO HS 05/21/18 05/21/18 History pantoprazole 40 mg PO QAM 05/21/18 05/21/18 History simvastatin 10 mg PO HS 05/21/18 05/21/18 History tamsulosin 0.4 mg PO HS 05/21/18 05/21/18 History tiotropium bromide [Spiriva with 1 cap INHALATION HS 05/21/18 05/21/18 History HandiHaler] warfarin 4 mg PO 6XWK 05/21/18 05/21/18 History warfarin 6 mg PO WK 05/21/18 05/21/18 History Patient History Medical History Pulmonary embolism (Resolved) DVT (deep venous thrombosis) (Resolved) Hematuria (Acute) Anxiety (Acute) IBS (irritable bowel syndrome) Stage III chronic kidney disease (Acute) Neuropathy Surgical History Hx of bladder repair surgery Social History Preferred Language: Malay Communication Ability: Effective Communication Ability Comment: h/a needs a new battery which s/o will bring in am Fitness Manager Required: No Beliefs That Will Affect Care: [employer] Current Living Situation: Significant Other Feels Safe at Home: Yes Safety Concerns: Feels Safe At This Time Smoking Status: Former smoker Hx Alcohol Use: No Hx Substance Use: No Review of Systems Constitutional: no fever and no chills Eyes: no worsening vision Ear, Nose, Mouth, Throat: + hearing loss Respiratory: no dyspnea Cardiovascular: no chest pain Gastrointestinal: no bloating, no nausea and no vomiting Genitourinary (Male): as per Subjective / HPI Musculoskeletal: no back pain Neurologic: no tingling and no numbness Psychiatric: no problem reported Physical Exam Vital Signs (Past 24 Hours): Last Vital Signs Temp 36.7 C 05/22/18 07:40 Pulse 74 05/22/18 07:40 Resp 20 05/22/18 07:40 BP 109/69 05/22/18 07:40 Pulse Ox 92 05/22/18 07:40 Physical Exam: WN/WD NAD. +hard of hearing Neck: visual inspection normal No respiratory distress. No JVD. Abd soft, nontender. : CBI in place, tubing patent, draining light red urine. Bladder does not feel distended upon exam. Penis uncircumcised, dried blood s/p benavides insertion at meatus. Testicles/scrotum without swelling or tenderness. (1) Hematuria Hematuria type: unspecified type Qualified Code(s): R31.9 - Hematuria, unsp ecified
--- NOTE | 2018-05-22 11:49 | CT Scan Report ---
ABDOMEN AND PELVIS CT WITHOUT CONTRAST CT DOSE: 797.34 mGycm HISTORY: Acute hematuria hematuria TECHNIQUE: Multiaxial CT images of the abdomen and pelvis were performed without contrast. A dose lo wering technique was utilized adhering to the principles of ALARA. COMPARISON STUDY: CT pelvis 05/19/2015, CT abdomen and pelvis 07/15/2014 FINDINGS: Respiratory motion limits evaluation of the lung bases. There are scattered bibasilar tree-in-bud nod ules suggestive of bronchiolitis with adjacent atelectasis. No pneumatosis or pneumoperitoneum. The s tudy is mildly motion degraded. Imaged inferior cardiac chambers are enlarged with coronary arterial and aortic annular calcifications. Prior cholecystectomy. Mild prominence of the common bile duct is likely on a postsurgical basis. The liver, spleen and adrenal glands are unremarkable. Moderate generalized pancreatic atrophy. Mild right and moderate left perinephric stranding. Cystic lesions with peripheral calcifications are again noted but the superior kidneys bilaterally measuring up to 3.4 cm on the left and 3.4 cm on th e right. Study is mildly motion degraded. Right kidney and right ureter otherwise unremarkable. There is mild left-sided hydroureteronephrosis with moderate dilation of the distal left ureter. There is apparent narrowing at the left ureterovesicular junction. Hyperdense material is noted throughout the urinary bladder lumen with scattered foci of intraluminal air. Jett catheter is noted. Prostamegaly . No definite obstructing stone or lesion identified. Mild wall thickening about the urinary bladder with perivesicular stranding. Extensive mixed plaque formation of the abdominal aorta without aneurys m. There is no adenopathy by CT size criteria. There is no small bowel obstruction. Colonic diverticulosis. Wall thickening is noted about the mid s igmoid colon with areas of mild pericolonic inflammation. A giant sigmoid diverticulum with wall thic kening redemonstrated. Terminal ileum and appendix are unremarkable. Soft tissues are unremarkable. D egenerative changes of the spine, pelvis and hips. IMPRESSION: 1. Mild left-sided hydroureteronephrosis with perinephric and periureteral inflammation. There is mod erate dilation of the distal left ureter with apparent narrowing at the level of the ureterovesicular junction. This finding could be correlated with cystoscopy and ureteroscopy to exclude underlying ur othelial lesion. No obstructing calculi identified. 2. Jett catheter in place. Hyperdense material throughout the urinary bladder lumen suggests hemorrh age with intermixed foci of air . 3. Mild nonspecific urinary bladder wall thickening. 4. Colonic diverticulosis. Chronic wall thickening of the sigmoid colon is noted with mild adjacent p ericolonic stranding. Correlate clinically to exclude mild acute sigmoid diverticulitis. 5. Prostamegaly. 6. Additional findings as above. Electronically signed by: Anderson Mcallister M.D. 05/22/2018 11:48 AM
--- NOTE | 2018-05-22 15:24 | Urology Progress Note ---
Date of Service May 22, 2018 Assessment & Plan (1) Hematuria: Gross hematuria with clot retention - catheter exchanged - for 22F 3way hematuria catheter - 600cc + of old clot evacuated from the bladder manually - irrigating relatively clear at that stage - slow/mod CBI resumed (pink to clear at that rate) PLAN: 1. diet now 2. cont CBI - manually irrigation PRN Subjective CT earlier today showing bladder to be filled with clot - 18F [address] - CBI started by the ER - catheter draining very poorly on my initial eval - dark blood and clot throughout the tubing Physical Exam Vital Signs (Past 24 Hours): Last Vital Signs Temp 36.4 C L 05/22/18 14:57 Pulse 79 05/22/18 14:57 Resp 18 05/22/18 14:57 BP 132/77 05/22/18 14:57 Pulse Ox 93 05/22/18 14:57
--- NOTE | 2018-05-22 17:04 | Hospitalist Progress Note ---
Date of Service May 22, 2018 Assessment & Plan (1) Hematuria: Present to the ER with constant hematuria with clot formation causing urinary retention. Was on Coumadin and ASA CT abd/pelvis showed mild left-sided hydroureteronephrosis with perinephric and periureteral inflammation. There is moderate dilation of the distal left ureter with apparent narrowing at the level of the ureterovesicular junction. Hgb on admission 13.6 Hemoglobin 12 today Case discussed with urology Catheter changed to a larger, old clot evacuated from the bladder manually Continue bladder irrigation for tonight as per urology Coumadin and aspirin on hold Continue monitor CBC (2) DVT (deep venous thrombosis): (3) Pulmonary embolism: Hx of blot clot in 1983 and 2017 Continue holding coumadin due to hematuria (4) Anxiety: on Klonopin PRN (5) Acute kidney injury: (6) Stage III chronic kidney disease: Creatinine on admission 1.9, baseline creatinine btw 1.6 to 1.7 Increased to 2.03 Continue gentle hydration 1L x1 Avoid nephrotoxic agents Monitor BMP (7) Chronic systolic congestive heart failure: No signs of volume overload Last ECHO on 02/27 showed LV systolic and RV function is moderate to severely reduced with EF 30-35 % Will monitor closely for sign of fluid overload (8) Diabetes: Hba1c 8.8 today Hold Glipizide On insulin sliding scale On Lantus while in the hospital Monitor BS (9) Non healing left heel wound: Daily wound care Wound care nurse on board CAD Denies any chest pain Continue statin, metoprolol, aspirin Pain disorder Continue home dose hydrocodone DVT px on SCD due to hematuria CODE STATUS FULL NO [facility] Subjective Pt was seen and examined Lying in bed with no distress with friend at bedside Pt said that he feels fine He continues to have bladder irrigation Denies any chest pain, palpitation, dizziness and SOB Physical Exam Vital Signs (Past 24 Hours): Last Vital Signs Temp 36.4 C L 05/22/18 14:57 Pulse 79 05/22/18 14:57 Resp 18 05/22/18 14:57 BP 132/77 05/22/18 14:57 Pulse Ox 93 05/22/18 14:57 Physical Exam: General- No acute distress Head- atraumatic Eyes- PERRL, EOMI, ENT- oropharynx clear Neck- supple, no JVD Lungs- clear to auscultation Heart- regular rhythm; no murmur Abdomen- normal bowel sounds, soft, nontender Extremities- no calf tenderness, wound in L heel area Neuro- alert, oriented x 3; PERRL, EOMI; no facial palsy; no dysarthria Skin- warm & dry
[2018-05-22] MEDS: INSULIN GLARGINE SOLOSTAR 100 UNITS/ML 3 ML PEN SC SCH (20:51)
[2018-05-22] MEDS: TIOTROPIUM BROMIDE 5 PUFF/90 MCG INH INH SCH (20:55)
[2018-05-22] MEDS ORDERED: SODIUM CHLORIDE 0.9% 500 ML IV SCH (21:00)
[2018-05-22] MEDS: DOCUSATE SODIUM 100 MG CAP PO SCH (21:31)
[2018-05-22] MEDS: CHOLECALCIFEROL 1,000 UNITS TAB PO SCH (21:32)
[2018-05-22] MEDS: MIRTAZAPINE SOLTAB 15 MG PO SCH (21:32)
[2018-05-22] MEDS: TAMSULOSIN HCL 0.4 MG CAP PO SCH (21:32)
[2018-05-22] MEDS: SIMVASTATIN 10 MG TAB PO SCH (21:33)
[2018-05-23] MEDS: MoRPHine SULFATE 2 MG/ML CARP IV PRN ×2 (05:24→16:57)
[2018-05-23 06:23] LABS: Hematocrit (blood only) 34.3 % (42-52); Hemoglobin 11.4 g/dL (14.0-18.0); Mean Corpuscular Hgb Conc 33.2 g/dL (32-36); Platelet Count 192 K/uL (130-400); RDW Coefficient of Variation 14.3 % (11.5-14.5); RDW Standard Deviation 47.9 fL (36.4-46.3); Red Blood Count 3.73 M/uL (4.7-6.1); White Blood Count 9.11 K/uL (4.8-10.8)
[2018-05-23 06:43] LABS: BUN Creatinine Ratio 12.3 (10-20); Calcium 8.7 mg/dl (8.5-10.1); Creatinine Clr Calc Pharmacy 28.2 ml/min; Est GFR (African American) 34.3; Est GFR (Non-African American) 29.6
[2018-05-23] MEDS: INSULIN ASPART 100 UNITS/ML 3 ML PEN SC SCH ×4 (08:44→20:52)
[2018-05-23] MEDS: INSULIN GLARGINE SOLOSTAR 100 UNITS/ML 3 ML PEN SC SCH ×2 (08:45→20:50)
[2018-05-23] MEDS: ALLOPURINOL 100 MG TAB PO SCH (08:46)
[2018-05-23] MEDS: CYANOCOBALAMIN 500 MCG TABLET (VITAMIN B-12) PO SCH (08:46)
[2018-05-23] MEDS: PANTOprazole 40 MG TAB PO SCH (08:46)
[2018-05-23] MEDS: HYDROCODONE/ACETAMOPHEN 5/325MG TAB PO SCH ×3 (08:48→20:57)
[2018-05-23] MEDS: clonazePAM 0.5 MG TAB PO SCH ×2 (08:54→20:57)
[2018-05-23] MEDS: METOPROLOL SUCC 25MG EXT REL TAB PO SCH ×2 (09:44→20:53)
[2018-05-23] MEDS: GABAPENTIN 300 MG CAP PO SCH ×2 (09:44→20:53)
--- NOTE | 2018-05-23 11:19 | Urology Progress Note ---
Date of Service May 23, 2018 Assessment & Plan (1) Hematuria: Gross hematuria - much better today after irrigation of copious amounts of clot yesterday - clamp CBI now - will check later to see if we can disconnect Subjective Doing much better overnight cbi running slowly - clear - passed 2 small clots overnight Physical Exam Vital Signs (Past 24 Hours): Last Vital Signs Temp 36.4 C L 05/23/18 07:53 Pulse 82 05/23/18 07:53 Resp 18 05/23/18 07:53 BP 121/74 05/23/18 07:53 Pulse Ox 93 05/23/18 07:53 Physical Exam: NAD AAOX3 no resp distress RRR abd soft urine clear (very slow CBI)
[2018-05-23] MEDS ORDERED: INSULIN GLARGINE SOLOSTAR 100 UNITS/ML 3 ML PEN SC ONE (13:15)
--- NOTE | 2018-05-23 18:50 | Hospitalist Progress Note ---
Date of Service May 23, 2018 Assessment & Plan (1) Hematuria: Present to the ER with constant hematuria with clot formation causing urinary retention. Was on Coumadin and ASA CT abd/pelvis showed mild left-sided hydroureteronephrosis with perinephric and periureteral inflammation. There is moderate dilation of the distal left ureter with apparent narrowing at the level of the ureterovesicular junction. Hgb on admission 13.6 Hemoglobin 11 today Catheter changed to a larger one yesterday where old clot evacuated from the bladder manually Clamp CBI today Coumadin and aspirin on hold Continue monitor CBC (2) DVT (deep venous thrombosis): (3) Pulmonary embolism: Hx of blot clot in 1983 and 2017 Continue holding coumadin due to hematuria (4) Anxiety: on Klonopin PRN (5) Acute kidney injury: (6) Stage III chronic kidney disease: Creatinine on admission 1.9, baseline creatinine btw 1.6 to 1.7 Increased to 1.9 Received gentle hydration 1L x1 Avoid nephrotoxic agents Monitor BMP (7) Chronic systolic congestive heart failure: No signs of volume overload Last ECHO on 02/27 showed LV systolic and RV function is moderate to severely reduced with EF 30-35 % Will monitor closely for sign of fluid overload (8) Diabetes: Hba1c 8.8 today Hold Glipizide On insulin sliding scale On Lantus while in the hospital Monitor BS (9) Non healing left heel wound: Daily wound care Wound care nurse on board CAD Denies any chest pain Continue statin, metoprolol, aspirin Pain disorder Continue home dose hydrocodone DVT px on SCD due to hematuria CODE STATUS FULL NO [facility] Subjective Pt was seen and examined Lying in bed with no distress Pt said that he feels fine His urine is betting cleared denies any pain, SOB and fever Physical Exam Vital Signs (Past 24 Hours): Last Vital Signs Temp 36.8 C 05/23/18 15:05 Pulse 91 H 05/23/18 15:05 Resp 20 05/23/18 15:05 BP 160/82 H 05/23/18 15:05 Pulse Ox 97 05/23/18 15:05 Physical Exam: General- No acute distress Head- atraumatic Eyes- PERRL, EOMI, ENT- oropharynx clear Neck- supple, no JVD Lungs- clear to auscultation Heart- regular rhythm; no murmur Abdomen- normal bowel sounds, soft, nontender Extremities- no calf tenderness, wound in L heel area Neuro- alert, oriented x 3; PERRL, EOMI; no facial palsy; no dysarthria Skin- warm & dry
[2018-05-23] MEDS: CHOLECALCIFEROL 1,000 UNITS TAB PO SCH (20:52)
[2018-05-23] MEDS: SIMVASTATIN 10 MG TAB PO SCH (20:53)
[2018-05-23] MEDS: TAMSULOSIN HCL 0.4 MG CAP PO SCH (20:53)
[2018-05-23] MEDS: DOCUSATE SODIUM 100 MG CAP PO SCH (20:53)
[2018-05-23] MEDS: MIRTAZAPINE SOLTAB 15 MG PO SCH (20:54)
[2018-05-23] MEDS: TIOTROPIUM BROMIDE 5 PUFF/90 MCG INH INH SCH (20:54)
[2018-05-24 07:08] LABS: Hematocrit (blood only) 33.3 % (42-52); Hemoglobin 11.5 g/dL (14.0-18.0); Mean Corpuscular Hgb Conc 34.5 g/dL (32-36); Mean Corpuscular Volume 92.2 fL (80-100); Mean Platelet Volume 9.2 fL (7.4-10.4); Platelet Count 197 K/uL (130-400); RDW Coefficient of Variation 14.2 % (11.5-14.5); RDW Standard Deviation 48.1 fL (36.4-46.3); Red Blood Count 3.61 M/uL (4.7-6.1); White Blood Count 10.46 K/uL (4.8-10.8)
[2018-05-24 07:34] LABS: BUN Creatinine Ratio 12.7 (10-20); Calcium 8.6 mg/dl (8.5-10.1); Creatinine Clr Calc Pharmacy 28.9 ml/min; Est GFR (African American) 35.4; Est GFR (Non-African American) 30.6; Potassium 4.1 mmol/L (3.5-5.1)
[2018-05-24] MEDS: CYANOCOBALAMIN 500 MCG TABLET (VITAMIN B-12) PO SCH (08:28)
[2018-05-24] MEDS: ALLOPURINOL 100 MG TAB PO SCH (08:29)
[2018-05-24] MEDS: INSULIN GLARGINE SOLOSTAR 100 UNITS/ML 3 ML PEN SC SCH ×2 (08:29→20:52)
[2018-05-24] MEDS: PANTOprazole 40 MG TAB PO SCH (08:29)
[2018-05-24] MEDS: METOPROLOL SUCC 25MG EXT REL TAB PO SCH ×2 (08:29→20:57)
[2018-05-24] MEDS: GABAPENTIN 300 MG CAP PO SCH ×2 (08:29→20:56)
[2018-05-24] MEDS: INSULIN ASPART 100 UNITS/ML 3 ML PEN SC SCH ×4 (08:31→20:53)
[2018-05-24] MEDS: HYDROCODONE/ACETAMOPHEN 5/325MG TAB PO SCH ×3 (08:33→20:51)
[2018-05-24] MEDS: clonazePAM 0.5 MG TAB PO SCH ×2 (08:42→20:52)
--- NOTE | 2018-05-24 08:45 | Urology Progress Note ---
Date of Service May 24, 2018 Assessment & Plan (1) Hematuria: clamp CBI now - if it remains clear for the next 1-2 hours, plan for d/c of catheter - likely could be d/c'ed home for out pt completion of w/u Subjective a few small clots irrigated out last evening by nursing and no further issues - urine crystal clear on very slow SBI - no pain - tolerating a diet - labs stable Physical Exam Vital Signs (Past 24 Hours): Last Vital Signs Temp 36.5 C 05/24/18 07:35 Pulse 76 05/24/18 07:35 Resp 18 05/24/18 07:35 BP 132/71 05/24/18 07:35 Pulse Ox 92 05/24/18 07:35 Physical Exam: AFVSS NAD AAox3 no resp distress RRR abd soft urine clear - very slow CBI
--- NOTE | 2018-05-24 17:32 | Hospitalist Progress Note ---
Date of Service May 24, 2018 Assessment & Plan (1) Hematuria: Present to the ER with constant hematuria with clot formation causing urinary retention. Was on Coumadin and ASA CT abd/pelvis showed mild left-sided hydroureteronephrosis with perinephric and periureteral inflammation. There is moderate dilation of the distal left ureter with apparent narrowing at the level of the ureterovesicular junction. Hgb on admission 13.6 Hemoglobin 11.5 today Jett cath removed today Coumadin and aspirin on hold Continue monitor CBC (2) DVT (deep venous thrombosis): (3) Pulmonary embolism: Hx of blot clot in 1983 and 2017 Continue holding coumadin due to hematuria (4) Anxiety: on Klonopin PRN (5) Acute kidney injury: (6) Stage III chronic kidney disease: Creatinine on admission 1.9, baseline creatinine btw 1.6 to 1.7 Increased to 1.9 Received gentle hydration 1L x1 Avoid nephrotoxic agents Monitor BMP (7) Chronic systolic congestive heart failure: No signs of volume overload Last ECHO on 02/27 showed LV systolic and RV function is moderate to severely reduced with EF 30-35 % Will monitor closely for sign of fluid overload (8) Diabetes: Hba1c 8.8 today Hold Glipizide On insulin sliding scale On Lantus while in the hospital Monitor BS (9) Non healing left heel wound: Daily wound care Wound care nurse on board CAD Denies any chest pain Continue statin, metoprolol, aspirin Pain disorder Continue home dose hydrocodone DVT px on SCD due to hematuria CODE STATUS FULL NO [facility] Subjective Pt was seen and examined Lying in bed with no distress with at bedside Pt said that he feels fine Jett removed this afternoon His urine is getting clear He does not want to go home, he wants to stay in the hospital overnight to make sure hematuria resolved Denies any chest pain, palpitation, dizziness and SOB Physical Exam Vital Signs (Past 24 Hours): Last Vital Signs Temp 37.0 C 05/24/18 15:59 Pulse 82 05/24/18 15:59 Resp 20 05/24/18 15:59 BP 122/65 05/24/18 15:59 Pulse Ox 91 05/24/18 15:59 Physical Exam: General- No acute distress Head- atraumatic Eyes- PERRL, EOMI, ENT- oropharynx clear Neck- supple, no JVD Lungs- clear to auscultation Heart- regular rhythm; no murmur Abdomen- normal bowel sounds, soft, nontender Extremities- no calf tenderness, wound in L heel area Neuro- alert, oriented x 3; PERRL, EOMI; no facial palsy; no dysarthria Skin- warm & dry
[2018-05-24] MEDS: SIMVASTATIN 10 MG TAB PO SCH (20:55)
[2018-05-24] MEDS: DOCUSATE SODIUM 100 MG CAP PO SCH (20:55)
[2018-05-24] MEDS: MIRTAZAPINE SOLTAB 15 MG PO SCH (20:56)
[2018-05-24] MEDS: TAMSULOSIN HCL 0.4 MG CAP PO SCH (20:56)
[2018-05-24] MEDS: TIOTROPIUM BROMIDE 5 PUFF/90 MCG INH INH SCH (20:59)
[2018-05-24] MEDS: CHOLECALCIFEROL 1,000 UNITS TAB PO SCH (21:09)
[2018-05-25] MEDS: METOPROLOL SUCC 25MG EXT REL TAB PO SCH ×2 (09:00→20:31)
--- NOTE | 2018-05-25 09:08 | Urology Progress Note ---
Date of Service May 25, 2018 Assessment & Plan (1) Hematuria: 87yo M with gross hematuria Doing well, currently stable. Urine clearing. Off CBI x > 24 hours. Coumadin yet to be restarted. Will check CBC, BMP, coags today. Pt has great trepidation about going home without cystoscopy evaluation. Findings reviewed with Dr. Mendoza. Given severe hematuria upon admission which is now clearing. Will proceed with OR for cysto, possible fulguration. Risks and benefits to be reviewed with patient by Dr. Mendoza. OR notified. Preoperative CXR and EKG ordered. Will cover with IV gentamicin preoperatively. Subjective 87yo M with hx TURPx2, on coumadin previously for PE in February 2017 admitted with gross hematuria requiring manual irrigation and CBI. Catheter removed yesterday. Pt passed two clots yesterday without difficulty, otherwise urine is clear/josé miguel in urinal. Pt is doing well, but very anxious about going home without cysto/possible fulguration as he lives >40 minutes away. He expresses he felt he was going to "bleed out" before he could make it to the hospital. Coumadin has not yet been restarted. VS stable Labs reviewed- not drawn today. H/H remains stable yesterday Inr 1.7 on 05/22. UA not suspicious for UTI, UC&S not done. Physical Exam Vital Signs (Past 24 Hours): Last Vital Signs Temp 36.6 C 05/25/18 07:19 Pulse 92 H 05/25/18 07:19 Resp 18 05/25/18 07:19 BP 117/68 05/25/18 07:19 Pulse Ox 91 05/25/18 07:19 Physical Exam: A&Ox3 RRR abd soft, nontender upon palpation No suprapubic tenderness on palpation Urine clear/josé miguel. no clots in urinal.
[2018-05-25] MEDS: HYDROCODONE/ACETAMOPHEN 5/325MG TAB PO SCH ×3 (09:39→20:37)
[2018-05-25] MEDS: GABAPENTIN 300 MG CAP PO SCH ×2 (09:39→20:30)
[2018-05-25] MEDS: clonazePAM 0.5 MG TAB PO SCH ×2 (09:39→20:37)
[2018-05-25] MEDS: PANTOprazole 40 MG TAB PO SCH (09:39)
[2018-05-25] MEDS: CYANOCOBALAMIN 500 MCG TABLET (VITAMIN B-12) PO SCH (09:40)
[2018-05-25] MEDS: ALLOPURINOL 100 MG TAB PO SCH (09:40)
[2018-05-25] MEDS: INSULIN GLARGINE SOLOSTAR 100 UNITS/ML 3 ML PEN SC SCH ×2 (09:51→20:46)
[2018-05-25] MEDS: INSULIN ASPART 100 UNITS/ML 3 ML PEN SC SCH ×4 (09:53→20:46)
--- NOTE | 2018-05-25 11:04 | XRay Report ---
XR chest 1V portable HISTORY: preop COMPARISON: Chest 03/08/2017. FINDINGS: The lungs are clear. Cardiac silhouette is normal in size. No pleural effusions. No pneumot horax. Mild interstitial thickening at the lung bases persist and is likely chronic. IMPRESSION: No significant change compared to the prior study. No acute process. Electronically signed by: Ben Rudd M.D. 05/25/2018 11:02 AM
[2018-05-25] MEDS ORDERED: GENTAMICIN CONSULT ACTIVE PRN (11:21)
[2018-05-25] MEDS ORDERED: GENTAMICIN SULFATE 40 MG/ML 20 ML VIAL IV SCH (11:30)
[2018-05-25] MEDS ORDERED: GENTAMICIN SULFATE 160 MG in DEXTROSE 5% 100 ML IV SCH (12:00)
[2018-05-25 12:07] LABS: Basophils # (auto) 0.02 K/uL (0-0.2); Basophils % (auto) 0.2 %; Eosinophils # (auto) 0.15 K/uL (0-0.5); Eosinophils % (auto) 1.4 %; Hematocrit (blood only) 34.6 % (42-52); Hemoglobin 11.5 g/dL (14.0-18.0); Immature Granulocytes # (auto) 0.03 K/uL (0.00-0.02); Immature Granulocytes % (auto) 0.3 %; Lymphocytes % (auto) 13.2 %; Mean Corpuscular Hgb Conc 33.2 g/dL (32-36); Mean Corpuscular Volume 91.8 fL (80-100); Mean Platelet Volume 9.3 fL (7.4-10.4); Monocytes # (auto) 0.87 K/uL (0.11-0.59); Monocytes % (auto) 8.2 %; Neutrophils # (auto) 8.17 K/uL (1.4-6.5); Neutrophils % (auto) 76.7 %; Platelet Count 225 K/uL (130-400); RDW Coefficient of Variation 14.2 % (11.5-14.5); RDW Standard Deviation 46.5 fL (36.4-46.3); Red Blood Count 3.77 M/uL (4.7-6.1); White Blood Count 10.64 K/uL (4.8-10.8)
[2018-05-25 12:18] LABS: INR 1.1 (0.9-1.1); Partial Thromboplastin Ratio 0.9; Partial Thromboplastin Time 25.7 Seconds (21.0-31.0); Prothrombin Time 10.8 Seconds (9.0-12.0)
[2018-05-25 12:28] LABS: BUN Creatinine Ratio 12.4 (10-20); Calcium 8.5 mg/dl (8.5-10.1); Creatinine Clr Calc Pharmacy 27.9 ml/min; Est GFR (African American) 33.9; Est GFR (Non-African American) 29.3; Potassium 3.9 mmol/L (3.5-5.1)
--- NOTE | 2018-05-25 13:57 | History & Physical Bridge Note ---
Date of Service May 25, 2018 History & Physical Bridge Note I have examined the patient, reviewed the History & Physical and in the interval since the performance of the History & Physical I have noted the following changes of clinical significance: no changes noted Plan for cystoscopy and possible fulguration.
--- NOTE | 2018-05-25 15:33 | Anesthesiology Consultation ---
Date of Service May 25, 2018 Assessment & Plan (1) Encounter for pre-operative examination: Chart Review Chart Review: Acceptable Risk for Surgery NPO Date Last Intake of Fluids: 05/24/18 Time Last Intake of Fluids: 19:00 Date Last Intake of Solids: 05/24/18 Time Last Intake of Solids: 17:30 History Surgery Operation Date: 05/25/18 15:15 Proposed Procedures p Cystoscopy, Possible Fulgeration, Possible Retrograde Pyelogram - Terrence Mendoza II, DO Height/Weight Height: 6 ft Weight: 85 kg Allergies Allergy/AdvReac Type Severity Reaction Status Date / Time shellfish derived Allergy Intermediate HIVES TO Verified 05/21/18 15:20 SHRIMP, HAS HAD CONTRAST MEDIA WITHOUT PROB shrimp Allergy Intermediate HIVES Verified 05/21/18 15:20 succinylcholine Allergy Intermediate PSEUDOCHOLINESTERASE Verified 05/21/18 15:20 DEFICIENCY albuterol Allergy Unknown tachycardia Verified 05/21/18 15:20 finasteride Allergy Unknown SWELLING Verified 05/21/18 15:20 OF BREAST AND TESTICLES sertraline Allergy Unknown n/v Verified 05/21/18 15:20 levalbuterol AdvReac Intermediate RAPID Verified 05/21/18 15:20 HEARTBEAT ramipril AdvReac Mild COUGH Verified 05/21/18 15:20 Medications Home Medications Medication Instructions Recorded Confirmed Last Taken allopurinol 100 mg PO QAM 05/21/18 05/21/18 05/21/18 aspirin 81 mg PO QAM 05/21/18 05/21/18 05/21/18 cholecalciferol (vitamin D3) 5,000 unit PO PM 05/21/18 05/21/18 05/20/18 [Vitamin D3] clonazepam 0.25 mg PO BID 05/21/18 05/21/18 05/21/18 cyanocobalamin (vitamin B-12) 500 mcg PO QAM 05/21/18 05/21/18 05/21/18 [Vitamin B-12] docusate sodium [Colace] 300 mg PO HS 05/21/18 05/21/18 05/20/18 gabapentin 300 mg PO BID 05/21/18 05/21/18 05/21/18 glipizide 10 mg PO BID 05/21/18 05/21/18 05/21/18 hydrocodone-acetaminophen [[place]] 1 tab PO TID 05/21/18 05/21/18 05/21/18 08:00 metoprolol succinate 12.5 mg PO BID 05/21/18 05/21/18 05/21/18 mirtazapine 15 mg PO HS 05/21/18 05/21/18 05/20/18 pantoprazole 40 mg PO QAM 05/21/18 05/21/18 05/21/18 simvastatin 10 mg PO HS 05/21/18 05/21/18 05/20/18 tamsulosin 0.4 mg PO HS 05/21/18 05/21/18 05/20/18 tiotropium bromide [Spiriva with 1 cap INHALATION HS 05/21/18 05/21/18 05/07/18 HandiHaler] warfarin 4 mg PO [id number] 05/21/18 05/21/18 05/20/18 17:00 warfarin 6 mg PO WK 05/21/18 05/21/18 05/18/18 17:00 Active Medications Generic Name Dose Route Start Last Admin Trade Name Freq PRN Reason Stop Dose Admin Hydrocodone Bitart/Acetaminophen 1 tab 05/21/18 21:00 05/25/18 14:06 [place] 5/325 PO 06/04/18 20:59 Not Given TID CARMEN Allopurinol 100 mg 05/22/18 09:00 05/25/18 09:40 Zyloprim PO 06/21/18 08:59 Not Given QAM CARMEN Clonazepam 0.25 mg 05/21/18 21:00 05/25/18 09:39 Klonopin PO 06/20/18 20:59 Not Given BID [facility] Cyanocobalamin 500 mcg 05/22/18 09:00 05/25/18 09:40 Vitamin B-12 PO 06/21/18 08:59 Not Given QAM CARMEN Docusate Sodium 300 mg 05/21/18 21:00 05/24/18 20:55 Colace PO 06/20/18 20:59 300 mg HS CARMEN Administration Gabapentin 300 mg 05/21/18 21:00 05/25/18 09:39 Neurontin PO 06/20/18 20:59 Not Given BID CARMEN Gentamicin Sulfate 160 mg/ 104 mls @ 100 mls/hr 05/25/18 12:00 05/25/18 15:01 Dextrose IV 05/26/18 11:59 Infused TODAY@1200 CARMEN Infusion Insulin Aspart 0 units 05/22/18 07:30 05/25/18 12:13 Novolog Flexpen SC 06/21/18 07:29 2 units ACHS CARMEN Administration Insulin Glargine 15 units 05/24/18 21:00 05/25/18 09:51 Lantus Solostar Pen SC 06/23/18 20:59 7 units BID CARMEN Administration Metoprolol Succinate 12.5 mg 05/21/18 21:00 05/25/18 09:00 Toprol Xl PO 06/20/18 20:59 Not Given BID CARMEN Mirtazapine 15 mg 05/21/18 21:00 05/24/18 20:56 Remeron Solutab PO 06/20/18 20:59 15 mg HS CARMEN Administration Morphine Sulfate 1 mg 05/22/18 15:25 05/23/18 16:57 Morphine Sulfate IV 06/05/18 15:24 1 mg Q4 PRN Administration Pain Pantoprazole Sodium 40 mg 05/22/18 09:00 05/25/18 09:39 Protonix PO 06/21/18 08:59 Not Given QAM CARMEN Simvastatin 10 mg 05/21/18 21:00 05/24/18 20:55 Zocor PO 06/20/18 20:59 10 mg HS CARMEN Administration Tamsulosin HCl 0.4 mg 05/21/18 21:00 05/24/18 20:56 Flomax PO 06/20/18 20:59 0.4 mg HS CARMEN Administration Tiotropium [place] 1 puffs 05/21/18 21:00 05/24/18 20:59 Spiriva INH 06/20/18 20:59 1 puffs HS CARMEN Administration Vitamin D 5,000 units 05/21/18 21:00 05/24/18 21:09 Vitamin D3 PO 06/20/18 20:59 5,000 units QPM CARMEN Administration Past Medical History Medical History Pulmonary embolism (Resolved) DVT (deep venous thrombosis) (Resolved) Hematuria (Acute) Anxiety (Acute) IBS (irritable bowel syndrome) Stage III chronic kidney disease (Acute) Neuropathy Myocardial infarction 2001 stent placed Pseudocholinesterase deficiency Systolic heart failure chronic Past Surgical History Surgical History Hx of bladder repair surgery Social History Smoking Status: Former smoker Do You Dip or Chew Tobacco: No Smoking End Date: smoked from [id number] Hx Alcohol Use: No Hx Substance Use: No Physical Exam Vital Signs Last Vital Signs Temp 36.8 C 05/25/18 14:42 Pulse 95 H 05/25/18 14:42 Resp 18 05/25/18 14:42 BP 145/77 H 05/25/18 14:42 Pulse Ox 98 05/25/18 14:42 Testing Electrocardiogram Date: 05/25/18 Sinus rhythm with sinus arrhythmia with occasional Premature ventricular complexes Left anterior fascicular block Abnormal ECG When compared with ECG of 10-MAR-2017 06:19, Premature ventricular complexes are now Present Premature atrial complexes are no longer Present T wave inversion no longer evident in Anterior leads Echocardiogram Date: 03/08/17 EF: 30-35% The left ventricular cavity is small.?Left ventricular systolic function is moderate to severely reduced.?Ejection Fraction = 30-35%.?The right ventricle is moderate to severely dilated.?The right ventricular systolic function is moderate to severely reduced.?The left atrial size is normal.?The right atrium is moderately dilated.?No significant valvular pathology with technically limited study. Laboratory Results 05/25/18 11:44 05/25/18 11:44 PT 10.8 Seconds (9.0-12.0) 05/25/18 11:44 INR 1.1 (0.9-1.1) 05/25/18 11:44 APTT 25.7 Seconds (21.0-31.0) 05/25/18 11:44 Hemoglobin A1c 8.8 % (4.5-5.6) H 05/22/18 06:38 Urine Color [place] 05/21/18 14:45 Urine Appearance Cloudy (Clear) H 05/21/18 14:45 Urine pH 7.0 (4.5-7.5) 05/21/18 14:45 Ur Specific [place] 1.030 (1.000-1.030) 05/21/18 14:45 Urine Protein 4+ (Negative) H 05/21/18 14:45 Urine Glucose (UA) 2+ (Negative) H 05/21/18 14:45 Urine Ketones Negative (Negative) 05/21/18 14:45 Urine Nitrite Negative (Negative) 05/21/18 14:45 Ur Leukocyte Esterase Negative (Negative) 05/21/18 14:45 Urine WBC (Auto) 0 /hpf (0-5) 05/21/18 14:45 Urine RBC (Auto) 0-4 /hpf (0-4) 05/21/18 14:45 U Hyaline Cast (Auto) 0 /lpf (0-5) 05/21/18 14:45 U Epithel Cells (Auto) 0-5 /lpf (0-5) 05/21/18 14:45 Urine Bacteria (Auto) Negative (Negative) 05/21/18 14:45 Urine RBC >30 /hpf (0-4) H 05/21/18 14:45 Urine WBC 0-5 /hpf (0-5) 05/21/18 14:45 Ur Epithelial Cells 0-5 /lpf (0-5) 05/21/18 14:45 05/25/18 05/25/18 14:38 09:37 POC Glucose 238 H 240 H
[2018-05-25] MEDS ORDERED: ePHEDrine sulfate 50 MG/ML AMP IV PRN (15:44)
[2018-05-25] MEDS ORDERED: ONDANSETRON INJ 2 MG/ML 2 ML VIAL IV PRN (15:44)
[2018-05-25] MEDS ORDERED: ATROPINE SULFATE 0.1 MG/ML 10ML SYR IV PRN (15:44)
[2018-05-25] MEDS ORDERED: fentaNYL citrate 100 MCG/2 ML VIAL IV PRN (15:44)
[2018-05-25] MEDS ORDERED: fentaNYL citrate 100 MCG/2 ML VIAL ONE (15:58)
[2018-05-25] MEDS ORDERED: PROPOFOL IV EMULSION 10 MG/ML 20 ML VIAL IV ONE (15:58)
[2018-05-25] MEDS ORDERED: LIDOCAINE HCL 2% 2 ML VIAL/AMP(20MG/ML) INFIL ONE (15:58)
--- NOTE | 2018-05-25 16:43 | Operative Report ---
Post Operative Report Pre & Post Diagnosis Operation Date: 05/25/18 15:15 Pre-Op Diagnosis: HEMATURIA Post-Op Diagnosis: HEMATURIA Procedure Operation Date: 05/25/18 15:15 Actual Procedures p Cystoscopy with meatal and urethral dilation and clot evacuation - Terrence Mendoza II, DO Surgeon Terrence Mendoza II, DO Automatic Spinning Lathe Operator None Estimated Blood Loss 2 Findings Consistent with Post-Op Diagnosis Irregular prostate adenoma regrowth with large right lateral adenoma projecting into bladder with large varicosity. Severely irritated bladder with multiple areas of cystitis. Severe bulbar urethral stricture. Meatal stricture. Specimens None Drains [address] Anesthesia Type MAC Complications none Disposition Disposition: Recovery Room Indications Gross hematuria when hypertherapuetic on INR. Intermittent issues. History of BPH s/p TURP in past. Risks and benefits discussed. Description of Procedure Patient was consented and brought back to the operating room. Patient was placed under anesthesia in the supine position and moved to the dorsal lithotomy position. Patient was prepped and draped in the regular sterile fashion. A time out was completed. A 30degree Cystoscope was placed. The meatus required dilation to place the scope. At the bulbar urethra there was a severe stricture with a false passage. This was dilated. The prostate was irregular with adenoma regrowth. A large adenoma projected into the bladder on the right. Very large varicose bleeding veins were noted at the bladder neck especially on the regrowth of prostate. The entire bladder was found to be severely irritated with cystitis. Multiple areas were having minor bleeding. The bladder was trabeculated. The stricture, adenoma regrowth, cystitis, and large prostate veins all likely contribute the patient's bleeding. No single area had severe bleeding. The scope was removed. A [address] was placed over a wire and irrigation immediately started. Light red urine was appreciated. Minor bleeding at meatus. The patient was cleaned, aroused from anesthesia, and transferred to the pacu in stable condition having tolerated the procedure well with no complications. I was present and participated in all aspects of the procedure. The patient will be monitored in the PACU until transferred. Patient will remain on CBI while in the hospital. Due to the severe stricture at the bulbar urethra, will alemley need to maintain catheter for time. Will also likely need to have irregular adenoma regrowth resected to open bladder neck. Ideally this would be done after time to allow resolution of cystitis. I attest to the content of the Intraoperative Record and any orders documented therein. Any exceptions are noted below.
--- NOTE | 2018-05-25 17:15 | Anesthesiology Progress Note ---
Date of Service May 25, 2018 Anesthesia Post Procedure Vital Signs Vital Signs: Temp Pulse Pulse Resp BP Pulse Ox 05/25/18 17:10 36.6 C 79 17 134/70 96 05/25/18 16:48 36.4 C L 82 16 124/73 97 05/25/18 14:42 36.8 C 95 H 18 145/77 H 98 05/25/18 14:30 36.8 C 84 18 117/84 96 05/25/18 07:19 36.6 C 92 H 18 117/68 91 05/24/18 23:00 36.6 C 81 18 120/66 90 05/24/18 21:11 90 128/68 Pain Intensity Abdomen: Pain Intensity: 2 Notes Mental Status: alert / awake / arousable Patient Amnestic to Procedure: Yes Nausea / Vomiting: adequately controlled Pain: adequately controlled Airway Patency, RR, SpO2: stable & adequate BP & HR: stable & adequate Hydration State: stable & adequate Anesthetic Complications: no major complications apparent and Pt Satisfied with anesthetic care Notes: The patient is awake and stable.
[2018-05-25] MEDS: MoRPHine SULFATE 2 MG/ML CARP IV PRN (17:50)
[2018-05-25] MEDS ORDERED: HYDROmorphone INJ 0.5 MG/0.5 ML SYR IV STA (19:42)
[2018-05-25] MEDS: SIMVASTATIN 10 MG TAB PO SCH (20:30)
[2018-05-25] MEDS: DOCUSATE SODIUM 100 MG CAP PO SCH (20:30)
[2018-05-25] MEDS: CHOLECALCIFEROL 1,000 UNITS TAB PO SCH (20:30)
[2018-05-25] MEDS: TAMSULOSIN HCL 0.4 MG CAP PO SCH (20:31)
[2018-05-25] MEDS: TIOTROPIUM BROMIDE 5 PUFF/90 MCG INH INH SCH (20:31)
[2018-05-25] MEDS: MIRTAZAPINE SOLTAB 15 MG PO SCH (20:32)
--- NOTE | 2018-05-25 21:12 | Hospitalist Progress Note ---
Date of Service May 25, 2018 Assessment & Plan (1) Hematuria: Present to the ER with constant hematuria with clot formation causing urinary retention. Was on Coumadin and ASA CT abd/pelvis showed mild left-sided hydroureteronephrosis with perinephric and periureteral inflammation. There is moderate dilation of the distal left ureter with apparent narrowing at the level of the ureterovesicular junction. Hgb on admission 13.6 Hemoglobin 11.5 Plan for cystoscopy this today Coumadin and aspirin on hold Continue monitor CBC (2) DVT (deep venous thrombosis): (3) Pulmonary embolism: Hx of blot clot in 1983 and 2017 Continue holding coumadin due to hematuria (4) Anxiety: on Klonopin PRN (5) Acute kidney injury: (6) Stage III chronic kidney disease: Creatinine on admission 1.9, baseline creatinine btw 1.6 to 1.7 Increased to 1.9 Received gentle hydration 1L x1 Avoid nephrotoxic agents Monitor BMP (7) Chronic systolic congestive heart failure: No signs of volume overload Last ECHO on 02/27 showed LV systolic and RV function is moderate to severely reduced with EF 30-35 % Will monitor closely for sign of fluid overload (8) Diabetes: Hba1c 8.8 today Hold Glipizide On insulin sliding scale On Lantus while in the hospital Monitor BS (9) Non healing left heel wound: Daily wound care Wound care nurse on board CAD Denies any chest pain Continue statin, metoprolol, aspirin Pain disorder Continue home dose hydrocodone DVT px on SCD due to hematuria CODE STATUS FULL NO MECH VENTILATION Subjective Pt was seen and examined Lying in bed with no distress Pt had cystoscopy done by urologist Urine is getting cleared Denies any chest pain, palpitation and SOB Physical Exam Vital Signs (Past 24 Hours): Last Vital Signs Temp 36.2 C L 05/25/18 17:59 Pulse 84 05/25/18 17:59 Resp 18 05/25/18 17:59 BP 129/74 05/25/18 17:59 Pulse Ox 97 05/25/18 17:59 Physical Exam: General- No acute distress Head- atraumatic Eyes- PERRL, EOMI, ENT- oropharynx clear Neck- supple, no JVD Lungs- clear to auscultation Heart- regular rhythm; no murmur Abdomen- normal bowel sounds, soft, nontender Extremities- no calf tenderness, wound in L heel area Neuro- alert, oriented x 3; PERRL, EOMI; no facial palsy; no dysarthria Skin- warm & dry
[2018-05-26] MEDS: HYDROmorphone INJ 0.5 MG/0.5 ML SYR IV PRN ×3 (00:22→20:36)
[2018-05-26] MEDS: clonazePAM 0.5 MG TAB PO SCH ×2 (08:15→20:37)
[2018-05-26] MEDS: METOPROLOL SUCC 25MG EXT REL TAB PO SCH ×2 (08:15→20:45)
[2018-05-26] MEDS: ALLOPURINOL 100 MG TAB PO SCH (08:16)
[2018-05-26] MEDS: HYDROCODONE/ACETAMOPHEN 5/325MG TAB PO SCH ×3 (08:16→20:45)
[2018-05-26] MEDS: PANTOprazole 40 MG TAB PO SCH (08:16)
[2018-05-26] MEDS: CYANOCOBALAMIN 500 MCG TABLET (VITAMIN B-12) PO SCH (08:16)
[2018-05-26] MEDS: GABAPENTIN 300 MG CAP PO SCH ×2 (08:16→20:39)
[2018-05-26] MEDS: INSULIN ASPART 100 UNITS/ML 3 ML PEN SC SCH ×4 (08:36→20:55)
[2018-05-26] MEDS: INSULIN GLARGINE SOLOSTAR 100 UNITS/ML 3 ML PEN SC SCH ×2 (08:36→17:50)
--- NOTE | 2018-05-26 11:18 | Urology Progress Note ---
Date of Service May 26, 2018 Assessment & Plan (1) Hematuria: POD #1 s/p cystoscopy with meatal and urethral dilation and clot evacuation with gross hematuria CBI clamped this AM - 24fr 3-way catheter draining yellow urine, mild sediment. Has not required hand irrigation overnight. Plan to maintain catheter x 7 days, will arrange for TOV in our office. Pt plans to discontinue coumadin, states he is on it electively at this point (s/p Pulmonary embolism x2). We recommend he discuss this with cardiology. Okay to restart from our perspective. Will continue to follow while he is inpatient. Subjective 87yo M POD #1 s/p cystoscopy with meatal and urethral dilation and clot evacuation with gross hematuria Doing well today. No new complaints. CBI clamped - draining clear yellow with mild sediment. Pt is tolerating catheter well. Some suprapubic tenderness but no bladder spasms. Denies n/v/f/c. labs reviewed - Cr around baseline at 1.97. H/H remains stable. Glucose control seems to be the largest issue. Review of Systems All systems reviewed & are unremarkable except as noted in HPI & below Physical Exam Vital Signs (Past 24 Hours): Last Vital Signs Temp 37.1 C 05/26/18 07:21 Pulse 109 H 05/26/18 07:21 Resp 20 05/26/18 07:21 BP 114/68 05/26/18 07:21 Pulse Ox 94 05/26/18 10:03 Physical Exam: A&Ox3 RRR abd soft, nontender Some suprapubic tenderness with palpation on NC Results & Data Laboratory Results Laboratory Results - last 48 hr 05/24/18 05/24/18 05/25/18 16:43 20:48 09:37 WBC RBC Hgb Hct MCV MCH MCHC RDW Std Deviation RDW Coeff of Caio Plt Count MPV Immature Gran % (Auto) Neut % (Auto) Lymph % (Auto) [place] % (Auto) Eos % (Auto) Baso % (Auto) Immature Gran # (Auto) Neut # (Auto) Lymph # (Auto) [place] # (Auto) Eos # (Auto) Baso # (Auto) PT INR APTT PTT Ratio Sodium Potassium Chloride Carbon Dioxide Anion Gap BUN Creatinine Est Cr Clr Drug Dosing Est GFR ( Amer) Est GFR (Non-Af Amer) BUN/Creatinine Ratio Glucose POC Glucose 262 H 184 H 240 H Calcium 05/25/18 05/25/18 05/25/18 11:44 11:44 11:44 WBC 10.64 RBC 3.77 L Hgb 11.5 L Hct 34.6 L MCV 91.8 MCH 30.5 MCHC 33.2 RDW Std Deviation 46.5 H RDW Coeff of Caio 14.2 Plt Count 225 MPV 9.3 Immature Gran % (Auto) 0.3 Neut % (Auto) 76.7 Lymph % (Auto) 13.2 [place] % (Auto) 8.2 Eos % (Auto) 1.4 Baso % (Auto) 0.2 Immature Gran # (Auto) 0.03 H Neut # (Auto) 8.17 H Lymph # (Auto) 1.40 [place] # (Auto) 0.87 H Eos # (Auto) 0.15 Baso # (Auto) 0.02 PT 10.8 INR 1.1 APTT 25.7 PTT Ratio 0.9 Sodium 134 L Potassium 3.9 Chloride 101 Carbon Dioxide 31 Anion Gap 2.0 L BUN 24 H Creatinine 1.97 H Est Cr Clr Drug Dosing 27.9 Est GFR ( Amer) 33.9 Est GFR (Non-Af Amer) 29.3 BUN/Creatinine Ratio 12.4 Glucose 234 H POC Glucose Calcium 8.5 05/25/18 05/25/18 05/25/18 14:38 17:27 20:15 WBC RBC Hgb Hct MCV MCH MCHC RDW Std Deviation RDW Coeff of Caio Plt Count MPV Immature Gran % (Auto) Neut % (Auto) Lymph % (Auto) [place] % (Auto) Eos % (Auto) Baso % (Auto) Immature Gran # (Auto) Neut # (Auto) Lymph # (Auto) [place] # (Auto) Eos # (Auto) Baso # (Auto) PT INR APTT PTT Ratio Sodium Potassium Chloride Carbon Dioxide Anion Gap BUN Creatinine Est Cr Clr Drug Dosing Est GFR ( Amer) Est GFR (Non-Af Amer) BUN/Creatinine Ratio Glucose POC Glucose 238 H 210 H 188 H Calcium 05/26/18 05/26/18 05/26/18 07:20 11:35 11:36 WBC RBC Hgb Hct MCV MCH MCHC RDW Std Deviation RDW Coeff of Caio Plt Count MPV Immature Gran % (Auto) Neut % (Auto) Lymph % (Auto) [place] % (Auto) Eos % (Auto) Baso % (Auto) Immature Gran # (Auto) Neut # (Auto) Lymph # (Auto) [place] # (Auto) Eos # (Auto) Baso # (Auto) PT INR APTT PTT Ratio Sodium Potassium Chloride Carbon Dioxide Anion Gap BUN Creatinine Est Cr Clr Drug Dosing Est GFR ( Amer) Est GFR (Non-Af Amer) BUN/Creatinine Ratio Glucose POC Glucose 208 H 353 H* 348 H* Calcium
[2018-05-26] MEDS ORDERED: PHARMACY GLYCEMIC MGMT CONSULT PRN (15:03)
--- NOTE | 2018-05-26 15:12 | Pharmacy Report ---
Glycemic Control Consultation - Date of Service May 26, 2018 - Scope Scope: Glycemic Pharmacist consulted by Dr Sifuentes on 05/26/18 for glycemic control and to write orders per [facility] inpatient glycemic control protocol - Objective Weight: 85 kg Accuchecks BSG (last 24hrs): 05/25/18 05/25/18 05/26/18 17:27 20:15 07:20 POC Glucose 210 H 188 H 208 H 05/26/18 05/26/18 11:35 11:36 POC Glucose 353 H* 348 H* HbA1c: Hemoglobin A1c 8.8 % (4.5-5.6) H 05/22/18 06:38 - Recent Pertinent Medications Outpatient Anti-diabetic Regimen: * glipizide 10 mg PO BID The patient is currently receiving: * Basal insulin: Lantus 15 units every 12 hours * Correctional Insulin: Novolog Correction per scale ACHS Goal Range: Low 140 mg/dL - High 180 mg/dL Correction Factor: 50 mg/dL/unit * Prandial insulin: Per carb ratio of 1 unit per 17 grams CHO consumed Risk Factors for Insulin Resistance: * Recent Surgery: POD 1 for cystoscopy * Diet: T2DM - Assessment & Plan Assessment & Plan: ASSESSMENT: * Patient admitted with hematuria; underwent cystoscopy yesterday. Almost all blood sugars for the past couple of days have been above 200 mg/dL. Patient's HbA1C indicates uncontrolled T2DM. * Patient received 43 units of insulin on 05/24 (25 units of basal) and blood sugars ranged 184-318 mg/dL; he received 28 units yesterday (22 units of basal) and blood sugars ranged 188-240 mg/dL. He was NPO yesterday part of the day for procedure. Blood sugars today are 208-353 mg/dL. * Fasting has been trending downwards, albiet slowly. Will increase slightly to 18 units SQ BID, first dose with dinner. * Will tighten Novolog to weight-based stress of 2 as previously extremely loose. Add overnight check to ensure 24 hour coverage and to see how much basal insulin patient is lacking. Hesitate to add any IV insulin as patient has not had BMP x 2 days and potassium could run slightly low. * Lowered goal range to 110-140 so that lower blood sugars could be achieved. Goal in mind is around 160 mg/dL. * Pt is maintained on oral antidiabetic agents as an outpatient * Oral agents are not recommended for inpatient use d/t drug interactions, changing PO intake, and difficulty titrating for acute hyper/hypoglycemia. ADA recommends re-initiating outpatient oral agents 1-2 days prior to discharge if/when appropriate if they were held on admission. PLAN FOR INPATIENT GLYCEMIC CONTROL: * Holding outpatient oral diabetes medications * Basal insulin * Lantus 18 units SQ BID * Bolus insulin * NovoLog per scale ACHS or Q6hrs while NPO * Goal Range: Low 110 mg/dL - High 140 mg/dL * Correction Factor: 30 mg/dL/unit * Nutritional / Prandial insulin per carb ratio of 1 unit per 9 grams CHO consumed RECOMMENDATION FOR DISCHARGE * Patient's HBA1C is not controlled. Recommend discontinuing glipizide and starting once daily Lantus. * Further recommendations to come tomorrow. Thank you.
--- NOTE | 2018-05-26 20:37 | Hospitalist Progress Note ---
Date of Service May 26, 2018 Assessment & Plan (1) Hematuria: Present to the ER with constant hematuria with clot formation causing urinary retention. Was on Coumadin and ASA CT abd/pelvis showed mild left-sided hydroureteronephrosis with perinephric and periureteral inflammation. There is moderate dilation of the distal left ureter with apparent narrowing at the level of the ureterovesicular junction. Hgb on admission 13.6 s/p day #1 cystoscopy with meatal and urethral dilation and clot evacuation Hemoglobin 11.5 Coumadin and aspirin on hold Urology recommended to keep benavides catheter x 7 days Follow up with urology as an outpatient Ok to resume coumadin from urology standpoint Continue monitor CBC (2) DVT (deep venous thrombosis): (3) Pulmonary embolism: Hx of blot clot in 1983 and 2017 Continue holding coumadin due to hematuria (4) Anxiety: on Klonopin PRN (5) Acute kidney injury: (6) Stage III chronic kidney disease: Creatinine on admission 1.9, baseline creatinine btw 1.6 to 1.7 Increased to 1.9 Received gentle hydration 1L x1 Avoid nephrotoxic agents Monitor BMP (7) Chronic systolic congestive heart failure: No signs of volume overload Last ECHO on 02/27 showed LV systolic and RV function is moderate to severely reduced with EF 30-35 % Will monitor closely for sign of fluid overload (8) Diabetes: Hba1c 8.8 today Hold Glipizide Blood sugar elevated Pharmacy consult for glycemic management On insulin sliding scale On Lantus while in the hospital Monitor BS (9) Non healing left heel wound: Left heel Pressure ulcer, stage 2 Daily wound care Wound care nurse on board Follow up with wound care as an outpatient CAD Denies any chest pain Continue statin, metoprolol, aspirin Pain disorder Continue home dose hydrocodone DVT px on SCD due to hematuria CODE STATUS FULL NO [facility] VENTILATION Disposition Will discharge home in am Subjective Pt was seen and examined Lying in bed with no distress Pt said that he feels fine No hematuria seen in his benavides He had cystoscopy done yesterday with clot evacuation Denies any chest pain, palpitation and SOB Physical Exam Vital Signs (Past 24 Hours): Last Vital Signs Temp 36.5 C 05/26/18 14:42 Pulse 82 05/26/18 14:42 Resp 18 05/26/18 14:42 BP 119/68 05/26/18 14:42 Pulse Ox 96 05/26/18 14:42 Physical Exam: General- No acute distress Head- atraumatic Eyes- PERRL, EOMI, ENT- oropharynx clear Neck- supple, no JVD Lungs- clear to auscultation Heart- regular rhythm; no murmur Abdomen- normal bowel sounds, soft, nontender Extremities- no calf tenderness, wound in L heel area Neuro- alert, oriented x 3; PERRL, EOMI; no facial palsy; no dysarthria Skin- warm & dry
[2018-05-26] MEDS: TAMSULOSIN HCL 0.4 MG CAP PO SCH (20:38)
[2018-05-26] MEDS: DOCUSATE SODIUM 100 MG CAP PO SCH (20:38)
[2018-05-26] MEDS: TIOTROPIUM BROMIDE 5 PUFF/90 MCG INH INH SCH (20:40)
[2018-05-26] MEDS: MIRTAZAPINE SOLTAB 15 MG PO SCH (20:40)
[2018-05-26] MEDS: CHOLECALCIFEROL 1,000 UNITS TAB PO SCH (20:42)
[2018-05-26] MEDS: SIMVASTATIN 10 MG TAB PO SCH (20:43)
[2018-05-27] MEDS ORDERED: INSULIN ASPART 100 UNITS/ML 3 ML PEN SC SCH (02:00)
[2018-05-27] MEDS: HYDROmorphone INJ 0.5 MG/0.5 ML SYR IV PRN ×2 (06:17→18:22)
[2018-05-27] MEDS: clonazePAM 0.5 MG TAB PO SCH ×2 (07:53→21:56)
[2018-05-27] MEDS: METOPROLOL SUCC 25MG EXT REL TAB PO SCH ×2 (07:53→22:02)
[2018-05-27] MEDS: ALLOPURINOL 100 MG TAB PO SCH (07:54)
[2018-05-27] MEDS: GABAPENTIN 300 MG CAP PO SCH ×2 (07:54→21:58)
[2018-05-27] MEDS: PANTOprazole 40 MG TAB PO SCH (07:54)
[2018-05-27] MEDS: CYANOCOBALAMIN 500 MCG TABLET (VITAMIN B-12) PO SCH (07:54)
[2018-05-27] MEDS: HYDROCODONE/ACETAMOPHEN 5/325MG TAB PO SCH ×3 (07:54→21:56)
[2018-05-27] MEDS: INSULIN ASPART 100 UNITS/ML 3 ML PEN SC SCH ×4 (08:40→22:00)
[2018-05-27] MEDS: INSULIN GLARGINE SOLOSTAR 100 UNITS/ML 3 ML PEN SC SCH ×2 (08:40→21:59)
--- NOTE | 2018-05-27 09:44 | Urology Progress Note ---
Date of Service May 27, 2018 Assessment & Plan (1) Hematuria: POD #2 s/p cystoscopy with meatal and urethral dilation and clot evacuation with gross hematuria Pt evaluated with Dr. Barfield today. We encouraged pt to keep catheter for a few more days d/t stricture and need for dilation. Pt very strongly would like voiding trial prior to discharge. Discussed with Dr. Mendoza -okay to attempt in AM (order placed). Also okay to restart coumadin per primary/ordering team. Will continue to follow while he is inpatient. Subjective Review of Systems All systems reviewed & are unremarkable except as noted in HPI & below POD #2 s/p cystoscopy with meatal and urethral dilation and clot evacuation with gross hematuria Reporting some bladder spasms through the night, otherwise doing okay. Benavides draining clear yellow, has not required hand irrigation. Offers no further complaints today. Denies n/v/f/c. No family members at bedside today. Physical Exam Vital Signs (Past 24 Hours): Last Vital Signs Temp 36.9 C 05/27/18 08:01 Pulse 89 05/27/18 08:01 Resp 20 05/27/18 08:01 BP 132/73 05/27/18 08:01 Pulse Ox 95 05/27/18 08:01 Physical Exam: A&Ox3 RRR abd soft, nontender benavides - adequate amounts of clear yellow Results & Data Laboratory Results Laboratory Results - last 48 hr 05/25/18 05/25/18 05/25/18 11:44 11:44 11:44 WBC 10.64 RBC 3.77 L Hgb 11.5 L Hct 34.6 L MCV 91.8 MCH 30.5 MCHC 33.2 RDW Std Deviation 46.5 H RDW Coeff of Caio 14.2 Plt Count 225 MPV 9.3 Immature Gran % (Auto) 0.3 Neut % (Auto) 76.7 Lymph % (Auto) 13.2 [place] % (Auto) 8.2 Eos % (Auto) 1.4 Baso % (Auto) 0.2 Immature Gran # (Auto) 0.03 H Neut # (Auto) 8.17 H Lymph # (Auto) 1.40 [place] # (Auto) 0.87 H Eos # (Auto) 0.15 Baso # (Auto) 0.02 PT 10.8 INR 1.1 APTT 25.7 PTT Ratio 0.9 Sodium 134 L Potassium 3.9 Chloride 101 Carbon Dioxide 31 Anion Gap 2.0 L BUN 24 H Creatinine 1.97 H Est Cr Clr Drug Dosing 27.9 Est GFR ( Amer) 33.9 Est GFR (Non-Af Amer) 29.3 BUN/Creatinine Ratio 12.4 Glucose 234 H POC Glucose Calcium 8.5 05/25/18 05/25/18 05/25/18 14:38 17:27 20:15 WBC RBC Hgb Hct MCV MCH MCHC RDW Std Deviation RDW Coeff of Caio Plt Count MPV Immature Gran % (Auto) Neut % (Auto) Lymph % (Auto) [place] % (Auto) Eos % (Auto) Baso % (Auto) Immature Gran # (Auto) Neut # (Auto) Lymph # (Auto) [place] # (Auto) Eos # (Auto) Baso # (Auto) PT INR APTT PTT Ratio Sodium Potassium Chloride Carbon Dioxide Anion Gap BUN Creatinine Est Cr Clr Drug Dosing Est GFR ( Amer) Est GFR (Non-Af Amer) BUN/Creatinine Ratio Glucose POC Glucose 238 H 210 H 188 H Calcium 05/26/18 05/26/18 05/26/18 07:20 11:35 11:36 WBC RBC Hgb Hct MCV MCH MCHC RDW Std Deviation RDW Coeff of Caio Plt Count MPV Immature Gran % (Auto) Neut % (Auto) Lymph % (Auto) [place] % (Auto) Eos % (Auto) Baso % (Auto) Immature Gran # (Auto) Neut # (Auto) Lymph # (Auto) [place] # (Auto) Eos # (Auto) Baso # (Auto) PT INR APTT PTT Ratio Sodium Potassium Chloride Carbon Dioxide Anion Gap BUN Creatinine Est Cr Clr Drug Dosing Est GFR ( Amer) Est GFR (Non-Af Amer) BUN/Creatinine Ratio Glucose POC Glucose 208 H 353 H* 348 H* Calcium 05/26/18 05/26/18 05/26/18 14:50 16:58 19:53 WBC RBC Hgb Hct MCV MCH MCHC RDW Std Deviation RDW Coeff of Caio Plt Count MPV Immature Gran % (Auto) Neut % (Auto) Lymph % (Auto) [place] % (Auto) Eos % (Auto) Baso % (Auto) Immature Gran # (Auto) Neut # (Auto) Lymph # (Auto) [place] # (Auto) Eos # (Auto) Baso # (Auto) PT INR APTT PTT Ratio Sodium Potassium Chloride Carbon Dioxide Anion Gap BUN Creatinine Est Cr Clr Drug Dosing Est GFR ( Amer) Est GFR (Non-Af Amer) BUN/Creatinine Ratio Glucose POC Glucose 209 H 195 H 147 H Calcium 05/27/18 05/27/18 02:05 07:42 WBC RBC Hgb Hct MCV MCH MCHC RDW Std Deviation RDW Coeff of Caio Plt Count MPV Immature Gran % (Auto) Neut % (Auto) Lymph % (Auto) [place] % (Auto) Eos % (Auto) Baso % (Auto) Immature Gran # (Auto) Neut # (Auto) Lymph # (Auto) [place] # (Auto) Eos # (Auto) Baso # (Auto) PT INR APTT PTT Ratio Sodium Potassium Chloride Carbon Dioxide Anion Gap BUN Creatinine Est Cr Clr Drug Dosing Est GFR ( Amer) Est GFR (Non-Af Amer) BUN/Creatinine Ratio Glucose POC Glucose 190 H 167 H Calcium
--- NOTE | 2018-05-27 13:29 | Pharmacy Report ---
Glycemic Control Progress Note - Date of Service May 27, 2018 - Scope Glycemic Pharmacist consulted for glycemic control to write orders per [facility] inpatient glycemic control protocol. - Objective Accuchecks BSG(last 24 hours):: 05/26/18 05/26/18 05/26/18 14:50 16:58 19:53 POC Glucose 209 H 195 H 147 H 05/27/18 05/27/18 05/27/18 02:05 07:42 11:43 POC Glucose 190 H 167 H 265 H HbA1c:: Hemoglobin A1c 8.8 % (4.5-5.6) H 05/22/18 06:38 - Recent Pertinent Medications The patient is currently receiving: * Basal insulin: Lantus 18 units every 12 hours * Correctional Insulin: Novolog Correction per scale ACHS Goal Range: Low 110 mg/dL - High 40 mg/dL Correction Factor: 30 mg/dL/unit * Prandial insulin: Per carb ratio of 1 unit per 9 grams CHO consumed - Outpatient Anti-Diabetic Meds glipizide 10 mg PO BID - Assessment & Plan ASSESSMENT: * See progress note from 05/26/18 for more background info, in short: * Pt receiving SQ basal bolus insulin regimen for hyperglycemia secondary to baseline DM (outpatient regimen on hold) and POD 2 from cystoscopy * Patient is currently receiving an average of 54 units of insulin per day * 33 units of basal insulin * 21 units of prandial/correctional insulin * BSGs ranging 147 - 353 mg/dl over the past 24hrs * Changes needed to insulin regimen: * AM Fasting BSG = 167 mg/dl. This is slightly above goal range for patient based on inpatient targets and co-morbidities; however, it is much improved compared to yesterday. Will continue with Lantus 18 units twice daily as expect fasting to continue to decrease * Post-prandial BSGs were started at weight-based stress of 2 yesterday. Lunch was significantly elevated compared to breakfast. Tighten both parameters. * Total daily dose = 60-70 units. Increased Lantus and prandial coverage. PLAN FOR INPATIENT GLYCEMIC CONTROL: * Continuing Lantus 18 units SQ BID * TIGHTENING correction factor to 20 mg/dl/unit * TIGHTENING carb ratio to 1 unit per 6 grams CHO consumed * Continuing goal range of Low 110 mg/dL - High 140 mg/dL RECOMMENDATIONS FOR DISCHARGE: * Patient's HbA1C is elevated even for 87 y/o. * Recommend d/c of glipizide * Recommend start of Lantus 20 units daily and titrate upwards. * Please note that the plan above was derived based on current level of insulin resistance and hospital stress. These recommendations are appropriate for inpatient admission only. Plan of care upon discharge will need to be reassessed to avoid potential outpatient hypo/hyperglycemia. Thank you.
--- NOTE | 2018-05-27 18:24 | Hospitalist Progress Note ---
Date of Service May 27, 2018 Assessment & Plan (1) Hematuria: Present to the ER with constant hematuria with clot formation causing urinary retention. Was on Coumadin and ASA CT abd/pelvis showed mild left-sided hydroureteronephrosis with perinephric and periureteral inflammation. There is moderate dilation of the distal left ureter with apparent narrowing at the level of the ureterovesicular junction. Hgb on admission 13.6 s/p day #2 cystoscopy with meatal and urethral dilation and clot evacuation Hemoglobin 11.5 Coumadin and aspirin on hold Urology recommended to keep benavides catheter x 7 days, but pt dose not want to go home with the benavides Follow up with urology as an outpatient Ok to resume coumadin from urology standpoint Continue monitor CBC (2) DVT (deep venous thrombosis): (3) Pulmonary embolism: Hx of blot clot in 1983 and 2017 Continue holding coumadin due to hematuria (4) Anxiety: on Klonopin PRN (5) Acute kidney injury: (6) Stage III chronic kidney disease: Creatinine on admission 1.9, baseline creatinine btw 1.6 to 1.7 Increased to 1.9 Received gentle hydration 1L x1 Avoid nephrotoxic agents Monitor BMP (7) Chronic systolic congestive heart failure: No signs of volume overload Last ECHO on 02/27 showed LV systolic and RV function is moderate to severely reduced with EF 30-35 % Will monitor closely for sign of fluid overload (8) Diabetes: Hba1c 8.8 Hold Glipizide Blood sugar elevated Pharmacy consult for glycemic management On insulin sliding scale On Lantus while in the hospital Monitor BS (9) Non healing left heel wound: Left heel Pressure ulcer, stage 2 Daily wound care Wound care nurse on board Follow up with wound care as an outpatient CAD Denies any chest pain Continue statin, metoprolol, aspirin Pain disorder Continue home dose hydrocodone DVT px on SCD due to hematuria CODE STATUS [facility] Disposition Will discharge home in am Subjective Pt was seen and examined Lying in bed with no distress Pt said that his urine is cleared from the catheter Denies any chest pain, palpitation and SOB Physical Exam Physical Exam: General- No acute distress Head- atraumatic Eyes- PERRL, EOMI, ENT- oropharynx clear Neck- supple, no JVD Lungs- clear to auscultation Heart- regular rhythm; no murmur Abdomen- normal bowel sounds, soft, nontender Extremities- no calf tenderness, wound in L heel area Neuro- alert, oriented x 3; PERRL, EOMI; no facial palsy; no dysarthria Skin- warm & dry Results & Data Vital Signs (Past 12 Hours) Vital Signs Temp Pulse Resp BP Pulse Ox 05/27/18 14:45 36.8 C 90 20 131/70 94 05/27/18 08:01 36.9 C 89 20 132/73 95
[2018-05-27] MEDS ORDERED: WARFARIN SOD 4 MG TAB PO SCH (18:25)
[2018-05-27] MEDS: TAMSULOSIN HCL 0.4 MG CAP PO SCH (21:57)
[2018-05-27] MEDS: DOCUSATE SODIUM 100 MG CAP PO SCH (21:57)
[2018-05-27] MEDS: MIRTAZAPINE SOLTAB 15 MG PO SCH (22:01)
[2018-05-27] MEDS: CHOLECALCIFEROL 1,000 UNITS TAB PO SCH (22:01)
[2018-05-27] MEDS: SIMVASTATIN 10 MG TAB PO SCH (22:03)
[2018-05-27] MEDS: TIOTROPIUM BROMIDE 5 PUFF/90 MCG INH INH SCH (22:46)
[2018-05-28] MEDS: METOPROLOL SUCC 25MG EXT REL TAB PO SCH (07:40)
[2018-05-28] MEDS: clonazePAM 0.5 MG TAB PO SCH (07:40)
[2018-05-28] MEDS: GABAPENTIN 300 MG CAP PO SCH (07:41)
[2018-05-28] MEDS: PANTOprazole 40 MG TAB PO SCH (07:41)
[2018-05-28] MEDS: CYANOCOBALAMIN 500 MCG TABLET (VITAMIN B-12) PO SCH (07:41)
[2018-05-28] MEDS: ALLOPURINOL 100 MG TAB PO SCH (07:41)
[2018-05-28] MEDS: HYDROCODONE/ACETAMOPHEN 5/325MG TAB PO SCH ×2 (07:41→13:06)
[2018-05-28] MEDS: INSULIN ASPART 100 UNITS/ML 3 ML PEN SC SCH ×2 (08:53→13:06)
[2018-05-28] MEDS: INSULIN GLARGINE SOLOSTAR 100 UNITS/ML 3 ML PEN SC SCH (08:55)
--- NOTE | 2018-05-28 14:38 | Hospitalist Progress Note ---
Date of Service May 28, 2018 Assessment & Plan (1) Hematuria: Present to the ER with constant hematuria with clot formation causing urinary retention. Was on Coumadin and ASA CT abd/pelvis showed mild left-sided hydroureteronephrosis with perinephric and periureteral inflammation. There is moderate dilation of the distal left ureter with apparent narrowing at the level of the ureterovesicular junction. Hgb on admission 13.6 s/p day #3 cystoscopy with meatal and urethral dilation and clot evacuation Hemoglobin 11.5 Aspirin on hold Urology recommended to keep benavides catheter x 7 days, but pt dose not want to go home with the benavides Follow up with urology as an outpatient Ok to resume coumadin from urology standpoint Pt refused to take the coumadin last night He said that he is going to speak to his cardiology first before resume the coumadin Continue monitor CBC (2) DVT (deep venous thrombosis): (3) Pulmonary embolism: Hx of blot clot in 1983 and 2017 Coumadin was on hold due to hematuria Ok to resume coumadin Refused to take the coumadin yesterday He said that in the past his cardiology wanted to d/c the coumadin He would talk to his doctor first before resuming coumadin (4) Anxiety: on Klonopin PRN (5) Acute kidney injury: (6) Stage III chronic kidney disease: Creatinine on admission 1.9, baseline creatinine btw 1.6 to 1.7 Creatinine new baseline might be 1.9 now Received gentle hydration 1L x1 Avoid nephrotoxic agents Check BMP in 1 week (7) Chronic systolic congestive heart failure: No signs of volume overload Last ECHO on 02/27 showed LV systolic and RV function is moderate to severely reduced with EF 30-35 % Monitor closely for sign of fluid overload Stable (8) Diabetes: Hba1c 8.8 Hold Glipizide Blood sugar elevated Pharmacy consult for glycemic management On insulin sliding scale On Lantus while in the hospital Monitor BS (9) Non healing left heel wound: Left heel Pressure ulcer, stage 2 Daily wound care Wound care nurse on board Follow up with wound care as an outpatient CAD Denies any chest pain Continue statin, metoprolol, aspirin Pain disorder Continue home dose hydrocodone DVT px on SCD due to hematuria [facility] Disposition Discharge home today Subjective Pt was seen and examined Lying in bed with no distress Pt said that he feels fine Benavides removed early this morning He has been urinated fine with distress His urine is cleared Denies any chest pain, palpitation, dizziness and SOB Physical Exam Physical Exam: General- No acute distress Head- atraumatic Eyes- PERRL, EOMI, ENT- oropharynx clear Neck- supple, no JVD Lungs- clear to auscultation Heart- regular rhythm; no murmur Abdomen- normal bowel sounds, soft, nontender Extremities- no calf tenderness, wound in L heel area Neuro- alert, oriented x 3; PERRL, EOMI; no facial palsy; no dysarthria Skin- warm & dry Results & Data Vital Signs (Past 12 Hours) Vital Signs Temp Pulse Resp BP Pulse Ox 05/28/18 07:13 36.6 C 88 20 118/67 91
--- NOTE | 2018-05-28 14:49 | Urology Progress Note ---
Date of Service May 28, 2018 Assessment & Plan (1) Hematuria: POD #3 s/p cystoscopy with meatal and urethral dilation and clot evacuation with gross hematuria Catheter removed this AM per order. Pt is happy with his voiding pattern, feels he is emptying well without pain or need to strain. Urine is clear per patient. States he is not going back on coumadin, encouraged him to discuss with Cardiology. He states he will do so as soon as discharged. Okay to d/c home from our perspective. Will arrange close f/u with Dr. Trammell. Please continue tamsulosin. Pt very motivated to go home whenever amendable. Thank you for allowing us to participate in the care of Mr. Lao. Please r econsult us with additional questions, concerns, or changes in patient status. Subjective Resting comfortably when entered to see pt today. Woke easily to verbal stimulation. Pt states he is feeling much better. Catheter removed this AM per order. Voiding spontaneously without difficulty or pain. Urine is clear per pt report, unable to visualize. Tolerating PO without n/v. Denies any chest pain, palpitation, dizziness and SOB. Review of Systems Review of Systems: All systems reviewed & are unremarkable except as noted in HPI & below Physical Exam Physical Exam: A&Ox3 RRR abd soft, nontender no suprapubic tenderness on palpation Results & Data Vital Signs (Past 12 Hours) Vital Signs Temp Pulse Resp BP Pulse Ox 05/28/18 07:13 36.6 C 88 20 118/67 91 Laboratory Results Laboratory Results - last 48 hr 05/26/18 05/26/18 05/26/18 14:50 16:58 19:53 POC Glucose 209 H 195 H 147 H 05/27/18 05/27/18 05/27/18 02:05 07:42 11:43 POC Glucose 190 H 167 H 265 H 05/27/18 05/27/18 05/28/18 16:43 20:11 07:37 POC Glucose 170 H 158 H 188 H 05/28/18 11:19 POC Glucose 253 H
--- NOTE | 2018-05-29 12:22 | Discharge Summary ---
Date of Service May 28, 2018 Admission HPI Per Admitting Provider 87 yo Male with PMH of DVT, PE, IBS, BPH and CKD came to the ER for hematuria. Pt said that last night he started to have hematuria. Pt said that he has bladder problem and a history of hematuria. Pt said that few times that he had hematuria in the past but usually lasts 1 hr and stopped. He said that this time hematuria did not stop. He said that he was able to urinate fine last night. He said that around 10AM this morning his urine stream was very low, then few hours later he was not able to urinate. Pt said that on his way to the ED he passed a large clot and had another one while in the ER. Pt said that hematuria his constant this time. He on coumadin for PE. Last coumadin dose was last night and he took his last dose of aspirin this morning. Pt said that about 2 weeks ago he saw blood in his stool. Denies any fevers, chills, diaphoresis, visual changes, neck pain, chest pain, nausea, vomiting and SOB Admission Exam Per Admitting Provider General- No acute distress Head- atraumatic Eyes- PERRL, EOMI, ENT- oropharynx clear Neck- supple, no JVD Lungs- clear to auscultation Heart- regular rhythm; no murmur Abdomen- normal bowel sounds, soft, nontender Extremities- no calf tenderness Neuro- alert, oriented x 3; PERRL, EOMI; no facial palsy; no dysarthria Skin- warm & dry Principal Diagnosis Hematuria Hx PE/DVT Chronic systolic congestive heart failure CKD stage 3 Discharge Exam General- No acute distress Head- atraumatic Eyes- PERRL, EOMI, ENT- oropharynx clear Neck- supple, no JVD Lungs- clear to auscultation Heart- regular rhythm; no murmur Abdomen- normal bowel sounds, soft, nontender Extremities- no calf tenderness, wound in L heel area Neuro- alert, oriented x 3; PERRL, EOMI; no facial palsy; no dysarthria Skin- warm & dry Discharge Data Allergies Allergy/AdvReac Type Severity Reaction Status Date / Time shellfish derived Allergy Intermediate HIVES TO Verified 05/21/18 15:20 SHRIMP, HAS HAD CONTRAST MEDIA WITHOUT PROB shrimp Allergy Intermediate HIVES Verified 05/21/18 15:20 succinylcholine Allergy Intermediate PSEUDOCHOLINESTERASE Verified 05/21/18 15:20 DEFICIENCY albuterol Allergy Unknown tachycardia Verified 05/21/18 15:20 finasteride Allergy Unknown SWELLING Verified 05/21/18 15:20 OF BREAST AND TESTICLES sertraline Allergy Unknown n/v Verified 05/21/18 15:20 levalbuterol AdvReac Intermediate RAPID Verified 05/21/18 15:20 HEARTBEAT ramipril AdvReac Mild COUGH Verified 05/21/18 15:20 Consultations 05/21/18 16:45 ED Decision to Admit Stat 05/21/18 19:17 Consult Case Management - Discharge Planning Routine Consult Urology Routine Procedures Performed Operation Date: 05/25/18 15:15 Actual Procedures p Cystoscopy, Urethral dilation, clot evacuation. - Terrence Mendoza II, DO Ordered Studies 05/22/18 10:07 CT abd pelvis wo con Urgent ABDOMEN AND PELVIS CT WITHOUT CONTRAST CT DOSE: 797.34 mGycm HISTORY: Acute hematuria hematuria TECHNIQUE: Multiaxial CT images of the abdomen and pelvis were performed without contrast. A dose lowering technique was utilized adhering to the principles of ALARA. COMPARISON STUDY: CT pelvis 05/19/2015, CT abdomen and pelvis 07/15/2014 FINDINGS: Respiratory motion limits evaluation of the lung bases. There are scattered bibasilar tree-in-bud nodules suggestive of bronchiolitis with adjacent atelectasis. No pneumatosis or pneumoperitoneum. The study is mildly motion degraded. Imaged inferior cardiac chambers are enlarged with coronary arterial and aortic annular calcifications. Prior cholecystectomy. Mild prominence of the common bile duct is likely on a postsurgical basis. The liver, spleen and adrenal glands are unremarkable. Moderate generalized pancreatic atrophy. Mild right and moderate left perinephric stranding. Cystic lesions with peripheral calcifications are again noted but the superior kidneys bilaterally measuring up to 3.4 cm on the left and 3.4 cm on the right. Study is mildly motion degraded. Right kidney and right ureter otherwise unremarkable. There is mild left-sided hydroureteronephrosis with moderate dilation of the distal left ureter. There is apparent narrowing at the left ureterovesicular junction. Hyperdense material is noted throughout the urinary bladder lumen with scattered foci of intraluminal air. Benavides catheter is noted. Prostamegaly. No definite obstructing stone or lesion identified. Mild wall thickening about the urinary bladder with perivesicular stranding. Extensive mixed plaque formation of the abdominal aorta without aneurysm. There is no adenopathy by CT size criteria. There is no small bowel obstruction. Colonic diverticulosis. Wall thickening is noted about the mid sigmoid colon with areas of mild pericolonic inflammation. A giant sigmoid diverticulum with wall thickening redemonstrated. Terminal ileum and appendix are unremarkable. Soft tissues are unremarkable. Degenerative c hanges of the spine, pelvis and hips. IMPRESSION: 1. Mild left-sided hydroureteronephrosis with perinephric and periureteral inflammation. There is moderate dilation of the distal left ureter with apparent narrowing at the level of the ureterovesicular junction. This finding could be correlated with cystoscopy and ureteroscopy to exclude underlying urothelial lesion. No obstructing calculi identified. 2. Benavides catheter in place. Hyperdense material throughout the urinary bladder lumen suggests hemorrhage with intermixed foci of air . 3. Mild nonspecific urinary bladder wall thickening. 4. Colonic diverticulosis. Chronic wall thickening of the sigmoid colon is noted with mild adjacent pericolonic stranding. Correlate clinically to exclude mild acute sigmoid diverticulitis. 5. Prostamegaly. 6. Additional findings as above. Electronically signed by: Anderson Mcallister M.D. 05/22/2018 11:48 AM Dictated: 05/22/18 1136 Transcribed: 05/22/18 [address] WITHOUT CONTRAST CT DOSE: 797.34 mGycm HISTORY: Acute hematuria hematuria TECHNIQUE: Multiaxial CT images of the abdomen and pelvis were performed without contrast. A dose lowering technique was utilized adhering to the principles of ALARA. COMPARISON STUDY: CT pelvis 05/19/2015, CT abdomen and pelvis 07/15/2014 FINDINGS: Respiratory motion limits evaluation of the lung bases. There are scattered bibasilar tree-in-bud nodules suggestive of bronchiolitis with adjacent atelectasis. No pneumatosis or pneumoperitoneum. The study is mildly motion degraded. Imaged inferior cardiac chambers are enlarged with coronary arterial and aortic annular calcifications. Prior cholecystectomy. Mild prominence of the common bile duct is likely on a postsurgical basis. The liver, spleen and adrenal glands are unremarkable. Moderate generalized pancreatic atrophy. Mild right and moderate left perinephric stranding. Cystic lesions with peripheral calcifications are again noted but the superior kidneys bilaterally m easuring up to 3.4 cm on the left and 3.4 cm on the right. Study is mildly motion degraded. Right kidney and right ureter otherwise unremarkable. There is mild left-sided hydroureteronephrosis with moderate dilation of the distal left ureter. There is apparent narrowing at the left ureterovesicular junction. Hyperdense material is noted throughout the urinary bladder lumen with scattered foci of intraluminal air. Benavides catheter is noted. Prostamegaly. No definite obstructing stone or lesion identified. Mild wall thickening about the urinary bladder with perivesicular stranding. Extensive mixed plaque formation of the abdominal aorta without aneurysm. There is no adenopathy by CT size criteria. There is no small bowel obstruction. Colonic diverticulosis. Wall thickening is noted about the mid sigmoid colon with areas of mild pericolonic inflammation. A giant sigmoid diverticulum with wall thickening redemonstrated. Terminal ileum and appendix are unremarkable. Soft tissues are unremarkable. Degenerative changes of the spine, pelvis and hips. IMPRESSION: 1. Mild left-sided hydroureteronephrosis with perinephric and periureteral inflammation. There is moderate dilation of the distal left ureter with apparent narrowing at the level of the ureterovesicular junction. This finding could be correlated with cystoscopy and ureteroscopy to exclude underlying urothelial lesion. No obstructing calculi identified. 2. Benavides catheter in place. Hyperdense material throughout the urinary bladder lumen suggests hemorrhage with intermixed foci of air . 3. Mild nonspecific urinary bladder wall thickening. 4. Colonic diverticulosis. Chronic wall thickening of the sigmoid colon is noted with mild adjacent pericolonic stranding. Correlate clinically to exclude mild acute sigmoid diverticulitis. 5. Prostamegaly. 6. Additional findings as above. Electronically signed by: Anderson Mcallister M.D. 05/22/2018 11:48 AM Dictated: 05/22/18 1136 Transcribed: 05/22/18 1136 Hospital Course (1) Hematuria: Present to the ER with constant hematuria with clot formation causing urinary retention. Was on Coumadin and ASA CT abd/pelvis showed mild left-sided hydroureteronephrosis with perinephric and periureteral inflammation. There is moderate dilation of the distal left ureter with apparent narrowing at the level of the ureterovesicular junction. Hgb on admission 13.6 s/p day #3 cystoscopy with meatal and urethral dilation and clot evacuation Hemoglobin 11.5 Aspirin on hold Urology recommended to keep benavides catheter x 7 days, but pt dose not want to go home with the benavides Follow up with urology as an outpatient Ok to resume coumadin from urology standpoint Pt refused to take the coumadin last night He said that he is going to speak to his cardiology first before resume the coumadin Continue monitor CBC (2) DVT (deep venous thrombosis): (3) Pulmonary embolism: Hx of blot clot in 1983 and 2017 Coumadin was on hold due to hematuria Ok to resume coumadin Refused to take the coumadin yesterday He said that in the past his cardiology wanted to d/c the coumadin He would talk to his doctor first before resuming coumadin (4) Anxiety: on Klonopin PRN (5) Acute kidney injury: (6) Stage III chronic kidney disease: Creatinine on admission 1.9, baseline creatinine btw 1.6 to 1.7 Creatinine new baseline might be 1.9 now Received gentle hydration 1L x1 Avoid nephrotoxic agents Check BMP in 1 week (7) Chronic systolic congestive heart failure: No signs of volume overload Last ECHO on 02/27 showed LV systolic and RV function is moderate to severely reduced with EF 30-35 % Monitor closely for sign of fluid overload Stable (8) Diabetes: Hba1c 8.8 Hold Glipizide Blood sugar elevated Pharmacy consult for glycemic management On insulin sliding scale On Lantus while in the hospital Monitor BS (9) Non healing left heel wound: Left heel Pressure ulcer, stage 2 Daily wound care Wound care nurse on board Follow up with wound care as an outpatient CAD Denies any chest pain Continue statin, metoprolol, aspirin Pain disorder Continue home dose hydrocodone DVT px on SCD due to hematuria [facility] Disposition Discharge home today Total Time Total Time Spent Total Time Spent (In Minutes): 35 minutes Total Time Includes: Examination of the Patient, Discharge Planning, Medication Reconciliation, Communication With Other Providers and Other Discharge Plan Discharge Items Patient Disposition: Home - Home Health Services Reason For Visit: HEMATURIA Discharge Diagnosis: Hematuria Hx PE/DVT Chronic systolic congestive heart failure CKD stage 3 Discharge Goals: Decrease discomfort, Improve disease control, Improve function and Increase independence Activity: Resume your previous activity Activity Comment: As tolerated Non-emergency contact: Primary Care Provider and Wildlife Conservation Professor Call non-emergency contact if: you have any medication questions Follow-up/Referrals: Simon Up MD [Primary Care Provider] - Diet: Carb Consistent or DM2 and Heart Healthy Addtl Provider Instructions: Follow up with primary care provider Dr. High on 06/03 @ 11:00 Follow up with [facility] urology group (please call for the appointment) Follow up with your cardiology about the coumadin (For now OK to resume coumadin as per urology) Follow up with wound care Check BMP in 1 week to check kidney function Avoid any medication that can damage your kidney Fall precaution Continue wound care Continue physical and occupational therapy Prescriptions: Continued hydrocodone-acetaminophen [Colrain] 5-325 mg Tablet 1 tab PO TID RF: 0 glipizide 10 mg Tablet 10 mg PO BID RF: 0 clonazepam 0.5 mg Tablet 0.25 mg PO BID RF: 0 simvastatin 10 mg Tablet 10 mg PO HS RF: 0 allopurinol 100 mg Tablet 100 mg PO QAM RF: 0 warfarin 4 mg Tablet 4 mg PO [id number] RF: 0 warfarin 4 mg Tablet 6 mg PO WK RF: 0 cyanocobalamin (vitamin B-12) [Vitamin B-12] 500 mcg Tablet 500 mcg PO QAM RF: 0 tamsulosin 0.4 mg Capsule 0.4 mg PO HS RF: 0 pantoprazole 40 mg Tablet,Delayed Release (Dr/Ec) 40 mg PO QAM RF: 0 docusate sodium [Colace] 100 mg Capsule 300 mg PO HS RF: 0 gabapentin 300 mg Capsule 300 mg PO BID RF: 0 metoprolol succinate 25 mg Tablet Extended Release 24 Hr 12.5 mg PO BID RF: 0 mirtazapine 15 mg Tablet,Disintegrating 15 mg PO HS RF: 0 Spiriva with HandiHaler 18 mcg Capsule, W/Inhalation Device 1 cap INHALATION HS RF: 0 cholecalciferol (vitamin D3) [Vitamin D3] 5,000 unit Tablet 5,000 unit PO PM RF: 0 Discontinued aspirin 81 mg Tablet,Delayed Release (Dr/Ec) 81 mg PO QAM RF: 0 Stand-Alone Forms: My [facility] Discharge Orders: Discharge Order (Routine); Ordered 05/28/18 Ordered By: Monique Sifuentes Admission Data Admit Date/Time: 05/21/18 18:01 Attending Provider: Monique Sifuentes Admit Provider: Monique Sifuentes Primary Care Provider: Simon Up Other Providers: Iker Ellington ; Mendoza,Terrence H. II ; Home,Nursing Agency Service: Medical Other Interventions: Discharge Summary Assessment (RN) Last Done: 05/28/18 15:33 DC Date/Time DO NOT enter until pt leaves facility: 05/28/18 15:55
== END 2018-05-28 15:55 | disposition home health service (06) | DRG 696 ==
LOC: ED 13:16 → 4W 18:01